=== PATIENT | female | born 1935 | race African-American/Black ===

== ENCOUNTER 2020-01-19 14:25 | Inpatient (IN) | payer MEDICARE, MEDICAID ==
[~2020-01-19] VITALS: Ht 154.9 cm; Wt 59.6 kg
[~2020-01-19 14:25] MED LIST: ACETAMINOPHEN325 M1 PO; AMMONIUM LACTA225 GM TP; AMPICILLIN2 GM PO; ATIVAN0.5 MG IV; BENADRYL50 MG/ML ORAL; CALCIUM 600 +1 EAC3 PO; CATAPRES0.1 MG ORAL; CEPHALEXIN250 MG PO; COUMADIN5 MG ORAL; CRESTOR10 M1 GT; CRESTOR10 M1 ORAL; DILTIAZEM 24HR240 MG PO; DOCUSATE SODIU100 MG ORAL; FUROSEMIDE20 M1 PO; GLIPIZIDE5 MG ORAL; HYTRIN10 MG PO; ISOSORBIDE MONO60 M1 PO; KETOCONAZOLE TOP; KETOCONAZOLE15 GM TOP; LOTENSIN40 MG PO; METFORMIN HCL850 MG PO; MIRALAX17 G2 ORAL; MUCINEX100 MG PO; MYLANTA II30 ML ORAL; NITROSTAT0.4 M1 SL; NOVOLOG100 UNIT/5 SUBQ; ONDANSETRON4 MG/2 M2 IVP; PROMETHAZINE-C118 M1 ORAL; PROTONIX40 MG PO; Q-PAP325 M1 PO; RESTORIL15 MG ORAL; SIMVASTATIN40 MG PO; TERAZOSIN HCL2 MG PO; TRAMADOL HCL50 MG ORAL; VITAMIN B-1100 MG ORAL; qpap
[2020-01-19] MEDS ORDERED: Omnipaque 350 100ml vial INJ PRN (14:30)
[2020-01-19 14:35] VITALS: BP 182/90
--- NOTE | 2020-01-19 14:36 | Emergency Room Report ---
History of Present Illness General Chief Complaint: Dyspnea/Respdistress Source: Patient, Family Member - Daughter, Medical Record Present Illness HPI 84-year-old female history of cancer history of diabetes, hypertension atrial fibrillation, presents with acute shortness of breath after receiving chemotherapy today, shortness of breath is aggravated by chemotherapy she feels chest tightness no known alleviating factors severity is moderate, constant, patient denies any fevers or chills Allergies: Coded Allergies: No Known Allergies (Unverified , 12/19/14) patient states no known drug allergy COVID-19 Screening Contact w/high risk pt: No Experienced COVID-19 symptoms?: Yes COVID-19 Testing performed TRAILER CHIEF: No Patient History Past Medical History: see triage record Reviewed Nursing Documentation: PMH: Agreed; PSxH: Agreed Nursing Documentation-PMH Hx Cardiac Problems: Yes - A fib, anemia Hx Hypertension: Yes Hx Diabetes: Yes Hx Cancer: Yes - bone Hx Gastrointestinal Problems: No Hx Neurological Problems: No Review of Systems All Other Systems: negative except mentioned in HPI Physical Exam Vital Signs Date Time Temp Pulse Resp B/P (MAP) Pulse Ox O2 Delivery O2 Flow Rate FiO2 01/19/20 14:29 98.2 67 24 189/83 (118) 91 Room Air Sp02 EP Interpretation: reviewed, normal General Appearance: alert, moderate distress, cachetic Head: normocephalic, atraumatic Eyes: bilateral eye PERRL, bilateral eye EOMI ENT: uvula midline, moist mucus membranes Neck: supple, thyroid normal, supple/symm/no masses Respiratory: lungs clear, accessory muscle use Cardiovascular #1: normal peripheral pulses, no edema, no gallop, no murmur, tachycardia Gastrointestinal: non tender, soft, no guarding, no rebound Musculoskeletal: normal inspection Neurologic: alert, oriented x3 Psychiatric: mood/affect normal Skin: no rash, warm/dry Medical Decision Making Diagnostic Impression: Primary Impression: Dyspnea Qualified Codes: R06.00 - Dyspnea, unspecified Additional Impressions: NSTEMI (non-ST elevated myocardial infarction) Demand ischemia Interstitial edema Qualified Codes: R60.9 - Edema, unspecified ER Course 84 year old male history of cancer presents with shortness of breath after chemotherapy. Differential diagnosis includes ACS, heart failure, pulmonary embolism Cultures drawn, patient given aspirin patient is already on anticoagulation, will hold on Lovenox, patient with an elevated troponin We will provide patient with Lasix Patient admitted to Dr. Dubon Laboratory Tests Test 01/19/20 14:30 White Blood Count 12.6 K/UL (4.8-10.8) H Red Blood Count 3.42 M/UL (4.20-5.40) L Hemoglobin 10.5 G/DL (12.0-16.0) L Hematocrit 32.4 % (37.0-47.0) L Mean Corpuscular Volume 95 FL (80-99) Mean Corpuscular Hemoglobin 30.6 PG (27.0-31.0) Mean Corpuscular Hemoglobin Concent 32.4 G/DL (32.0-36.0) Red Cell Distribution Width 20.5 % (11.6-14.8) H Platelet Count 272 K/UL (150-450) Mean Platelet Volume 7.5 FL (6.5-10.1) Neutrophils (%) (Auto) % (45.0-75.0) Lymphocytes (%) (Auto) % (20.0-45.0) Monocytes (%) (Auto) % (1.0-10.0) Eosinophils (%) (Auto) % (0.0-3.0) Basophils (%) (Auto) % (0.0-2.0) Differential Total Cells Counted 100 Neutrophils % (Manual) 95 % (45-75) H Lymphocytes % (Manual) 3 % (20-45) L Monocytes % (Manual) 2 % (1-10) Eosinophils % (Manual) 0 % (0-3) Basophils % (Manual) 0 % (0-2) Band Neutrophils 0 % (0-8) Platelet Estimate Adequate Platelet Morphology Normal Hypochromasia 1+ Anisocytosis 1+ Prothrombin Time 12.7 SEC (9.30-11.50) H Prothrombin Time INR 1.2 (0.9-1.1) H Activated Partial Thromboplast Time 29 SEC (23-33) Sodium Level 136 MMOL/L (136-145) Potassium Level 4.5 MMOL/L (3.5-5.1) Chloride Level 99 MMOL/L (98-107) Carbon Dioxide Level 31 MMOL/L (21-32) Anion Gap 6 mmol/L (5-15) Blood Urea Nitrogen 22 mg/dL (7-18) H Creatinine 1.2 MG/DL (0.55-1.30) Estimated Glomerular Filtration Rate 51.8 mL/min (>60) Glucose Level 201 MG/DL (74-106) H Lactic Acid Level 1.20 mmol/L (0.4-2.0) Calcium Level 8.1 MG/DL (8.5-10.1) L Total Bilirubin 0.8 MG/DL (0.2-1.0) Aspartate Amino Transferase (AST) 43 U/L (15-37) H Alanine Aminotransferase (ALT) 25 U/L (12-78) Alkaline Phosphatase 259 U/L (46-116) H Troponin I 0.107 ng/mL (0.000-0.056) Pro-B-Type Natriuretic Peptide 87701 pg/mL (0-125) H Total Protein 7.0 G/DL (6.4-8.2) Albumin 3.4 G/DL (3.4-5.0) Globulin 3.6 g/dL Albumin/Globulin Ratio 0.9 (1.0-2.7) L Microbiology Date/Time Source Procedure Growth Status 01/19/20 14:30 Nasopharynx SARS-CoV-2 RdRp Gene Assay - Final Complete EKG Diagnostic Results EKG Time: 14:46 EP Interpretation: Atrial fibrillation, rate 68, QTc 429, no acute ST elevations, normal axis Rhythm Strip Diag. Results Rhythm Strip Time: 14:50 EP Interpretation: yes Rate: 70 Rhythm: other - Afib Chest X-Ray Diagnostic Results Chest X-Ray Diagnostic Results : Chest X-Ray Ordered: Yes # of Views/Limited/Complete: 1 View EP Interpretation: Yes Interpretation: other - Cardiomegaly with some interstitial edema Impression: Other - Cardiomegaly with interstitial edema Electronically Signed by: Naga Becker MD Last Vital Signs Date Time Temp Pulse Resp B/P (MAP) Pulse Ox O2 Delivery O2 Flow Rate FiO2 01/19/20 14:29 98.2 67 24 189/83 (118) 91 Room Air Disposition: ADMITTED INPATIENT Condition: Stable Naga Becker MD Jan 19, 2020 14:36
[2020-01-19 14:54] LABS: HEMATOCRIT 32.4 % (37.0-47.0); HEMOGLOBIN 10.5 G/DL (12.0-16.0); MEAN CORPUSCULAR VOLUME 95 FL (80-99); PLATELET COUNT 272 K/UL (150-450); RED BLOOD COUNT 3.42 M/UL (4.20-5.40); RED CELL DISTRIBUTION WIDTH 20.5 % (11.6-14.8); WHITE BLOOD COUNT 12.6 K/UL (4.8-10.8)
[2020-01-19 15:06] LABS: INR 1.2 (0.9-1.1)
[2020-01-19 15:09] LABS: ANION GAP 6 mmol/L (5-15); BLOOD UREA NITROGEN 22 mg/dL (7-18); CALCIUM 8.1 MG/DL (8.5-10.1); CARBON DIOXIDE 31 MMOL/L (21-32); CHLORIDE 99 MMOL/L (98-107); CREATININE 1.2 MG/DL (0.55-1.30); POTASSIUM 4.5 MMOL/L (3.5-5.1); SODIUM 136 MMOL/L (136-145)
[2020-01-19 15:19] LABS: ALANINE AMINOTRANSFERASE 25 U/L (12-78); ALBUMIN 3.4 G/DL (3.4-5.0); ALBUMIN/GLOBULIN RATIO 0.9 (1.0-2.7); ALKALINE PHOSPHATASE 259 U/L (46-116); ASPARTATE AMINO TRANSFERASE 43 U/L (15-37); BILIRUBIN,TOTAL 0.8 MG/DL (0.2-1.0)
--- NOTE | 2020-01-19 15:42 | Diagnostic Imaging Report ---
Indication: Reason For Exam: SOB Technique: Single AP view of the chest. Comparison: Chest radiograph dated 12/19/2014 Findings: Cardiomediastinal silhouette is unchanged with moderate to severe cardiomegaly. There is mild interstitial edema. No new airspace consolidation. No large pleural effusion. No pneumothorax. No acute osseous abnormality. IMPRESSION: Moderate to severe cardiomegaly with mild interstitial edema.
[2020-01-19 16:10] VITALS: BP 168/88
[2020-01-19] MEDS ORDERED: COREG6.25 MG ORAL (17:10)
[2020-01-19] MEDS ORDERED: GABAPENTIN100 MG ORAL (17:10)
[2020-01-19] MEDS ORDERED: ACETAMINOPHEN-1 EAC1 ORAL (17:10)
[2020-01-19] MEDS ORDERED: FUROSEMIDE20 M1 ORAL (17:10)
[2020-01-19] MEDS ORDERED: ACYCLOVIR200 MG ORAL (17:10)
[2020-01-19] MEDS ORDERED: AMBIEN5 MG ORAL (17:10)
[2020-01-19] MEDS ORDERED: VITAMIN D31 M1 MC (17:10)
[2020-01-19] MEDS ORDERED: ELIQUIS5 MG PO (17:10)
[2020-01-19] MEDS ORDERED: Albuterol/Ipratropium 3ml neb HHN PRN (17:15)
[2020-01-19] MEDS ORDERED: Labetalol 5mg/ml 20ml vial IV PRN (17:15)
[2020-01-19] MEDS ORDERED: Enalaprilat 2.5mg/2ml Inj IV PRN (17:15)
--- NOTE | 2020-01-19 17:33 | Diagnostic Imaging Report ---
CTA CHEST - PE PROTOCOL Indication: Chest pain Technique: CT pulmonary angiogram performed utilizing automated exposure control with intravenous contrast. Axial, sagittal and coronal reconstructions were obtained. 3-D volumetric reconstructions were also performed. CT dose: Total DLP 155.4 mGycm; CTDI vol 53 mGy Comparison: Same day chest radiograph, CT abdomen pelvis dated 12/19/2014 Findings: Examination is limited due to respiratory motion artifact. Vasculature: Opacification of the pulmonary arteries is good. Main pulmonary artery is normal in size. No central or segmental pulmonary embolism. Evaluation of subsegmental arteries is limited due to respiratory motion artifact. Ascending aorta is normal in caliber. There is mild aortic atherosclerosis calcification. Lungs and pleura: Incomplete evaluation lung parenchyma due to motion artifact. There is mild emphysema. There is bibasilar subsegmental atelectasis. Small right pleural effusion. Heart and mediastinum: Thyroid is mildly heterogeneous. There is moderate to severe global cardiomegaly, with preferential enlargement of the right atrium. No pericardial effusion.. Airways: Patent. There is a moderate sized right posterior mid tracheal diverticulum. Lymph nodes: No lymphadenopathy. Upper abdomen: Liver is cirrhotic. There is reflux of intravenous contrast into the hepatic veins suggestive of right heart dysfunction. Right renal cyst is noted. Multiple hiatal hernia. Bones and soft tissue: There are multilevel discogenic degenerative changes of the visualized spine. Interval development of L1 compression fracture, with greater than 90% loss of body height, which appears chronic given degree of associated sclerosis.. Impression: 1. No evidence of central or segmental pulmonary embolism; dilation of subsegmental pulmonary arteries is limited due to respiratory motion, and small emboli at this level cannot be entirely excluded. 2. Moderate to severe cardiomegaly with evidence of right heart dysfunction. 3. Small right pleural effusion with associated atelectasis. 4. Mild diffuse bronchial thickening, nonspecific finding but which can be associated with infectious/inflammatory airways disease, especially given coexistence of emphysema. 5. L1 compression fracture with vertebral plana appearance, likely chronic given degree of associated sclerosis, but new since most recent examination from 2014. 6. Cirrhosis. The CT scanner at [facility] is accredited by the [employer] and the scans are performed using protocols designed to limit radiation exposure to as low as reasonably achievable to attain images of sufficient resolution adequate for diagnostic evaluation.
--- NOTE | 2020-01-19 17:55 | History & Physical ---
History and Physical History & Physicial Dictated for Int Med-Dr Dubon no. [id number]. Rafael Boykin MD Jan 19, 2020 17:55
--- NOTE | 2020-01-19 18:17 | Cardiology Progress Note ---
Assessment/Plan Assessment/Plan 1.Permanent atrial fibrillation. 2.[id number] mitral regurgitation and tricuspid regurgitation. 3.History of multiple falls. 4.Recent diagnosis of multiple myeloma. 5.History of peripheral arterial embolism. 6.History of epidural hematoma 7. CHF sx at time of chemo ct noted no large PE cxr noted wbc elevated will keep on diuretic bid and heart rate control not keeping her oxygen in place saturation 98% on room air , heart rate 66 on tele resume her eliquis 2.65 mg bid for stroke prevention Subjective Subjective past medical history is positive for a history of toxic metabolic encephalopathy and a ~prior history of bacteremia and urinary tract infection, renal failure, moderate to severe mitral regurgitation, tricuspid regurgitation , permanent atrial fibrillation on anticoagulation, history of compression fracture of the spine with epidural hematoma, history of hypertension, hyperlipidemia, hyponatremia secondary to SIADH, pulmonary hypertension, and a diagnosis of multiple myeloma as well as peripheral arterial embolism, diabetes ~mellitus, hyperlipidemia, congestive heart failure, obesity. Fall with blunt head injury/scalp hematoma, resolved.Bilateral sacral fracture, status post closed reduction and percutaneous pinning revision with Dr. Leonard Donato on 01/03/2020. History of mechanical fall with multiple pelvic fractures status post closed reduction and percutaneous pinning on 12/15/2019. Multiple myeloma, status post chemotherapy. Objective Last 24 Hour Vital Signs Date Time Temp Pulse Resp B/P (MAP) Pulse Ox O2 Delivery O2 Flow Rate FiO2 01/19/20 17:24 Nasal Cannula 2.0 01/19/20 17:00 98.0 73 20 162/84 99 Nasal Cannula 3.0 01/19/20 16:10 98.2 66 19 168/88 99 Nasal Cannula 3.0 01/19/20 14:35 98.2 70 21 182/90 99 Nasal Cannula 3.0 01/19/20 14:35 70 21 Nasal Cannula 3.0 01/19/20 14:29 98.2 67 24 189/83 (118) 91 Room Air Laboratory Tests Test 01/19/20 14:30 White Blood Count 12.6 K/UL (4.8-10.8) H Red Blood Count 3.42 M/UL (4.20-5.40) L Hemoglobin 10.5 G/DL (12.0-16.0) L Hematocrit 32.4 % (37.0-47.0) L Mean Corpuscular Volume 95 FL (80-99) Mean Corpuscular Hemoglobin 30.6 PG (27.0-31.0) Mean Corpuscular Hemoglobin Concent 32.4 G/DL (32.0-36.0) Red Cell Distribution Width 20.5 % (11.6-14.8) H Platelet Count 272 K/UL (150-450) Mean Platelet Volume 7.5 FL (6.5-10.1) Neutrophils (%) (Auto) % (45.0-75.0) Lymphocytes (%) (Auto) % (20.0-45.0) Monocytes (%) (Auto) % (1.0-10.0) Eosinophils (%) (Auto) % (0.0-3.0) Basophils (%) (Auto) % (0.0-2.0) Differential Total Cells Counted 100 Neutrophils % (Manual) 95 % (45-75) H Lymphocytes % (Manual) 3 % (20-45) L Monocytes % (Manual) 2 % (1-10) Eosinophils % (Manual) 0 % (0-3) Basophils % (Manual) 0 % (0-2) Band Neutrophils 0 % (0-8) Platelet Estimate Adequate Platelet Morphology Normal Hypochromasia 1+ Anisocytosis 1+ Prothrombin Time 12.7 SEC (9.30-11.50) H Prothromb Time International Ratio 1.2 (0.9-1.1) H Activated Partial Thromboplast Time 29 SEC (23-33) Sodium Level 136 MMOL/L (136-145) Potassium Level 4.5 MMOL/L (3.5-5.1) Chloride Level 99 MMOL/L (98-107) Carbon Dioxide Level 31 MMOL/L (21-32) Anion Gap 6 mmol/L (5-15) Blood Urea Nitrogen 22 mg/dL (7-18) H Creatinine 1.2 MG/DL (0.55-1.30) Estimat Glomerular Filtration Rate 51.8 mL/min (>60) Glucose Level 201 MG/DL (74-106) H Lactic Acid Level 1.20 mmol/L (0.4-2.0) Calcium Level 8.1 MG/DL (8.5-10.1) L Total Bilirubin 0.8 MG/DL (0.2-1.0) Aspartate Amino Transf (AST/SGOT) 43 U/L (15-37) H Alanine Aminotransferase (ALT/SGPT) 25 U/L (12-78) Alkaline Phosphatase 259 U/L (46-116) H Troponin I 0.107 ng/mL (0.000-0.056) Pro-B-Type Natriuretic Peptide 54137 pg/mL (0-125) H Total Protein 7.0 G/DL (6.4-8.2) Albumin 3.4 G/DL (3.4-5.0) Globulin 3.6 g/dL Albumin/Globulin Ratio 0.9 (1.0-2.7) L Microbiology Date/Time Source Procedure Growth Status 01/19/20 14:30 Nasopharynx SARS-CoV-2 RdRp Gene Assay - Final Complete Chauncey Lynne MD Jan 19, 2020 18:16
--- NOTE | 2020-01-19 18:45 | History and Physical Report ---
DATE OF ADMISSION: 01/19/2020 CHIEF COMPLAINT: The patient is an 84-year-old female, who presents with a chief complaint of shortness of breath. HISTORY OF PRESENT ILLNESS: The patient is undergoing chemotherapy at [facility] for "bone cancer." The patient states she was at her clinic appointment yesterday. The patient became short of breath. The patient was transferred to [facility] emergency room. The patient was found to be in atrial fibrillation. The patient is admitted with atrial fibrillation and shortness of breath to rule out pneumonia. REVIEW OF SYSTEMS: CONSTITUTIONAL: The patient denies weight loss or weight gain. The patient denies fevers or chills. HEENT: The patient denies ear or throat pain. The patient denies headache. CARDIOVASCULAR: The patient denies palpitations or chest pain. CHEST: The patient complains of shortness of breath as above. The patient denies wheezes. ABDOMEN: The patient denies nausea, vomiting, diarrhea, or constipation. GENITOURINARY: The patient denies dysuria or increased frequency of urination. NEUROMUSCULAR: The patient denies seizures or generalized weakness. PAST MEDICAL HISTORY: Significant for: 1. Atrial fibrillation. 2. "Bone cancer." 3. Diabetes type 2. 4. Hypertension. 5. History of liver cirrhosis. PAST SURGICAL HISTORY: Significant for: 1. Left hip open reduction and internal fixation. 2. Appendectomy. CURRENT MEDICATIONS: 1. Tylenol No. 3 with codeine one tablet p.o. q.6 h. p.r.n. 2. Acyclovir 200 mg one tablet p.o. twice daily. 3. Eliquis 5 mg p.o. daily. 4. Benazepril 40 mg p.o. daily. 5. Coreg 6.25 mg p.o. twice daily. 6. Vitamin D3 400 units p.o. daily. 7. Clonidine 0.1 mg p.o. q.4 h. p.r.n. 8. Diltiazem 240 mg p.o. daily. 9. Lasix 20 mg p.o. daily. 10. Insulin aspart q.a.c. meals. 11. Zofran 4 mg p.o. q.6 h. p.r.n. 12. Protonix 40 mg p.o. daily. 13. Crestor 10 mg p.o. daily. 14. Restoril 15 mg p.o. nightly. 15. Vitamin B 100 mg orally daily. 16. Tramadol 50 mg p.o. q.6 h. p.r.n. ALLERGIES: No known drug allergies. SOCIAL HISTORY: The patient is a and lives with her daughter. The patient denies tobacco or alcohol use. PHYSICAL EXAMINATION: VITAL SIGNS: Temperature 98.2, respirations 24, pulse 64, and blood pressure 189/83. GENERAL: The patient is a well-developed and well-nourished Lithuanian-speaking female, in no apparent distress. HEENT: Eyes, pupils are equal and responsive to light and accommodation. Extraocular movements are intact. NECK: Supple without lymphadenopathy. CHEST: Lungs are clear to auscultation bilaterally without wheezes or rales. CARDIOVASCULAR: Regular rhythm and rate. S1, S2 normal without murmurs, rubs, or gallops. ABDOMEN: Soft, nontender, and nondistended. Positive bowel sounds. No evidence of hepatosplenomegaly. Currently, no rebound or guarding noted. EXTREMITIES: Negative for clubbing, cyanosis, or edema. RECTAL/GENITAL: Not performed. NEUROLOGIC: Cranial nerves II through XII are grossly intact without focal deficits. Motor strength is 5/5 bilaterally. Deep tendon reflexes are 2+ plantar. LABORATORY STUDIES: WBC 12.6, hemoglobin 10.5, hematocrit 32.4, and platelets 272,000. Sodium 136, potassium 4.5, chloride 99, CO2 31, BUN 22, creatinine 1.2. Glucose 201. Troponin elevated at 0.107. BNP elevated at 17,314. Chest x-ray was reported as severe cardiomegaly with mild interstitial edema. A CT angio of failed to demonstrate pulmonary embolism. An EKG demonstrated atrial fibrillation with frequent premature ventricular contractions with no acute ST changes or Q-waves noted. ASSESSMENT: This is an 84-year-old female with: 1. Shortness of breath. 2. Atrial fibrillation. 3. Diabetes type 2. 4. Hypertension. 5. Bone cancer. 6. Liver cirrhosis. 7. Congestive heart failure. TREATMENT: 1. Atrial fibrillation. A Cardiology consultation has been obtained with Dr. Chauncey Lynne. We will follow recommendations of Cardiology. The patient is currently on Eliquis. Continue Eliquis as above. 2. Diabetes type 2. NovoLog sliding scale has been instituted. 3. Hypertension. Continue Coreg as above. Continue benazepril and diltiazem as above. 4. Bone cancer. The patient is followed as an outpatient at [facility]. 5. Congestive heart failure. As above, a Cardiology consultation has been obtained with Dr. Chauncey Lynne. 6. History of liver cirrhosis. Rafael Boykin M.D. DR: ANNABELLE JOB#: [id number] CC:
[2020-01-19 20:00] VITALS: BP 166/69
[2020-01-19] MEDS: NovoLOG Insulin Flexpen SUBQ SCH (22:29)
[2020-01-19] MEDS: Carvedilol 6.25mg Tab ORAL SCH (22:46)
[2020-01-19] MEDS: Heparin 5000 units/ml inj SUBQ SCH (22:48)
[2020-01-20] VITALS (7 sets, daily range): BP systolic 122–187; BP diastolic 53–89
[2020-01-20] MEDS: NovoLOG Insulin Flexpen SUBQ SCH ×4 (05:45→21:00)
--- NOTE | 2020-01-20 06:54 | General Progress Note ---
Assessment/Plan Problem List: (1) HTN (hypertension) ICD Codes: I10 - HTN (hypertension) SNOMED: 64277997 (2) DM (diabetes mellitus) ICD Codes: E11.9 - DM (diabetes mellitus) SNOMED: 32349548 (3) UTI (lower urinary tract infection) ICD Codes: N39.0 - Urinary tract infection, site not specified SNOMED: 7645821 (4) Atrial fibrillation ICD Codes: I48.91 - Atrial fibrillation SNOMED: 18654001 Assessment/Plan: add Januvia 50 mg daily continue Novolog sliding scale ac / hs Subjective Allergies: Coded Allergies: No Known Allergies (Unverified , 12/19/14) patient states no known drug allergy All Systems: reviewed and negative except above Subjective patient is know to me from recent admission to [facility] diabetes was well managed with Januvia 50 mg daily Objective Last 24 Hour Vital Signs Date Time Temp Pulse Resp B/P (MAP) Pulse Ox O2 Delivery O2 Flow Rate FiO2 01/20/20 04:30 132/70 (90) 01/20/20 04:00 97.9 73 19 187/89 (121) 96 01/20/20 04:00 61 01/20/20 03:59 187/89 01/20/20 00:00 68 01/20/20 00:00 96.9 73 19 126/66 (86) 100 01/19/20 22:46 89 166/87 01/19/20 21:00 Room Air 01/19/20 20:00 71 01/19/20 20:00 96.9 75 18 166/69 (101) 95 01/19/20 17:24 Nasal Cannula 2.0 01/19/20 17:00 98.0 73 20 162/84 99 Nasal Cannula 3.0 01/19/20 16:10 98.2 66 19 168/88 99 Nasal Cannula 3.0 01/19/20 14:35 98.2 70 21 182/90 99 Nasal Cannula 3.0 01/19/20 14:35 70 21 Nasal Cannula 3.0 01/19/20 14:29 98.2 67 24 189/83 (118) 91 Room Air Intake and Output 01/19/20 01/20/20 19:00 07:00 Intake Total 240 ml Balance 240 ml Intake Oral 240 ml # Voids 1 2 # Bowel Movements 1 Laboratory Tests 01/19/20 14:30: White Blood Count 12.6H, Red Blood Count 3.42L, Hemoglobin 10.5L, Hematocrit 32.4L, Mean Corpuscular Volume 95, Mean Corpuscular Hemoglobin 30.6, Mean Corpuscular Hemoglobin Concent 32.4, Red Cell Distribution Width 20.5H, Platelet Count 272, Mean Platelet Volume 7.5, Neutrophils (%) (Auto) , Lymphocytes (%) (Auto) , Monocytes (%) (Auto) , Eosinophils (%) (Auto) , Basophils (%) (Auto) , Differential Total Cells Counted 100, Neutrophils % ( Manual) 95H, Lymphocytes % (Manual) 3L, Monocytes % (Manual) 2, Eosinophils % ( Manual) 0, Basophils % (Manual) 0, Band Neutrophils 0, Platelet Estimate Adequate, Platelet Morphology Normal, Hypochromasia 1+, Anisocytosis 1+, Prothrombin Time 12.7H, Prothromb Time International Ratio 1.2H, Activated Partial Thromboplast Time 29, Sodium Level 136, Potassium Level 4.5, Chloride Level 99, Carbon Dioxide Level 31, Anion Gap 6, Blood Urea Nitrogen 22H, Creatinine 1.2, Estimat Glomerular Filtration Rate 51.8, Glucose Level 201H, Lactic Acid Level 1.20, Calcium Level 8.1L, Total Bilirubin 0.8, Aspartate Amino Transf (AST/SGOT) 43H, Alanine Aminotransferase (ALT/SGPT) 25, Alkaline Phosphatase 259H, Troponin I 0.107H, Pro-B-Type Natriuretic Peptide 59078Z, Total Protein 7.0, Albumin 3.4, Globulin 3.6, Albumin/Globulin Ratio 0.9L 01/19/20 18:00: Arterial Blood pH 7.447, Arterial Blood Partial Pressure CO2 44.1, Arterial Blood Partial Pressure O2 139.4H, Arterial Blood HCO3 29.8H, Arterial Blood Oxygen Saturation 98.8, Arterial Blood Base Excess 5.1H, Felipe Test Positive 01/19/20 21:51: POC Whole Blood Glucose [Pending] 01/19/20 22:35: Troponin I 0.096H 01/20/20 04:46: Sodium Level [Pending], Potassium Level [Pending], Chloride Level [Pending], Carbon Dioxide Level [Pending], Blood Urea Nitrogen [Pending], Creatinine [ Pending], Estimat Glomerular Filtration Rate [Pending], Glucose Level [Pending] , Calcium Level [Pending], Troponin I [Pending], Pro-B-Type Natriuretic Peptide [Pending] 01/20/20 05:34: POC Whole Blood Glucose 191H Height (Feet): 5 Height (Inches): 1.00 Weight (Pounds): 147 General Appearance: no apparent distress Neck: normal alignment Cardiovascular: normal rate Respiratory/Chest: lungs clear Abdomen: normal bowel sounds Objective Current Medications Medications (Trade) Dose Ordered Sig/Farhad Route PRN Reason Start Time Stop Time Status Last Admin Dose Admin Acetaminophen (Tylenol) 650 mg Q4H PRN ORAL Fever 01/19/20 17:15 02/18/20 17:14 Albuterol/ Ipratropium (Albuterol/ Ipratropium) 3 ml Q4H PRN HHN Shortness of Breath 01/19/20 17:15 01/24/20 17:14 Carvedilol (Coreg) 6.25 mg EVERY 12 HOURS ORAL 01/19/20 21:00 02/18/20 20:59 01/19/20 22:46 Dextrose (Dextrose 50%) 25 ml Q30M PRN IV Hypoglycemia 01/19/20 17:15 04/18/20 17:14 Dextrose (Dextrose 50%) 50 ml Q30M PRN IV Hypoglycemia 01/19/20 17:15 04/18/20 17:14 Enalaprilat (Vasotec) 2.5 mg Q4H PRN IV sbp more than 200 01/19/20 17:15 02/18/20 17:14 Furosemide (Lasix) 40 mg EVERY 8 HOURS IV 01/19/20 23:00 02/18/20 22:59 01/20/20 05:42 Gabapentin (Neurontin) 100 mg THREE TIMES A DAY ORAL 01/19/20 18:00 02/18/20 17:59 01/19/20 18:23 Heparin Sodium (Porcine) (Heparin 5000 units/ml) 5,000 units EVERY 12 HOURS SUBQ 01/19/20 21:00 03/04/20 20:59 01/19/20 22:48 Hydralazine HCl (Apresoline) 20 mg Q4H PRN IV sbp more than 160 01/19/20 17:15 04/18/20 17:14 01/20/20 03:59 Insulin Aspart (NovoLOG) BEFORE MEALS AND HS SUBQ 01/19/20 21:00 04/18/20 20:59 01/20/20 05:45 Iohexol (Omnipaque 350 100ml) 100 ml NOW PRN INJ Radiology Procedure 01/19/20 14:30 01/21/20 14:26 Labetalol HCl (Normodyne) 20 mg Q1H PRN IV sbo more than 180 01/19/20 17:15 02/18/20 17:14 Ondansetron HCl (Zofran) 4 mg Q6H PRN IVP Nausea & Vomiting 01/19/20 17:15 02/18/20 17:14 Polyethylene Glycol (Miralax) 17 gm DAILYPRN PRN ORAL Constipation 01/19/20 17:15 02/18/20 17:14 Temazepam (Restoril) 15 mg HSPRN PRN ORAL Insomnia 01/19/20 17:15 01/26/20 17:14 Maurizio Flores MD Jan 20, 2020 06:54
[2020-01-20 07:26] LABS: ANION GAP 6 mmol/L (5-15); BLOOD UREA NITROGEN 24 mg/dL (7-18); CALCIUM 8.3 MG/DL (8.5-10.1); CARBON DIOXIDE 33 MMOL/L (21-32); CHLORIDE 99 MMOL/L (98-107); CREATININE 1.5 MG/DL (0.55-1.30); POTASSIUM 3.9 MMOL/L (3.5-5.1); SODIUM 138 MMOL/L (136-145)
[2020-01-20] MEDS: sitaGLIPtin 50mg tab ORAL SCH (08:03)
[2020-01-20] MEDS: Carvedilol 6.25mg Tab ORAL SCH ×2 (08:47→21:11)
[2020-01-20] MEDS: Heparin 5000 units/ml inj SUBQ SCH (08:49)
--- NOTE | 2020-01-20 13:06 | Consultation ---
History of Present Illness General Date patient seen: Jan 20, 2020 Chief Complaint: Dyspnea/Respdistress Present Illness HPI 79-year-old female with past medical history of atrial fibrillation, hypertension, DVT, diabetes presented to the emergency room at [facility] with a chief complaint of dyspnea after receiving chemotherapy for her bone cancer (?multiple myeloma) fever, and flu like symptoms. Therefore, the patient was admitted for further evaluation. Allergies: Coded Allergies: No Known Allergies (Unverified , 12/19/14) patient states no known drug allergy Medication History Scheduled Acyclovir* (Acyclovir*), 200 MG ORAL BID, (Reported) Ampicillin (Ampicillin*), 500 MG PO Q6HR, (Reported) Benazepril Hcl* (Lotensin*), 40 MG PO DAILY, (Reported) Carvedilol (Coreg), 6.25 MG ORAL EVERY 12 HOURS, (Reported) Docusate Sodium* (Docusate Sodium*), 100 MG ORAL TWICE A DAY, (Reported) Furosemide* (Lasix*), 20 MG PO DAILY, (Reported) Furosemide* (Lasix*), 10 MG ORAL DAILY, (Reported) Gabapentin* (Gabapentin*), 100 MG ORAL THREE TIMES A DAY, (Reported) Guaifenesin (Mucinex), 600 MG PO BID, (Reported) Insulin Aspart (Novolog), UNIT SUBQ ACHS, (Reported) Pantoprazole* (Protonix*), 40 MG PO DAILY Rosuvastatin Calcium (Crestor), 10 MG ORAL DAILY, (Reported) Thiamine Hcl* (Vitamin B-1*), 100 MG ORAL DAILY, (Reported) Tramadol Hcl* (Ultram*), 50 MG ORAL Q6H Scheduled PRN Acetaminophen (Q-Pap), 650 MG PO Q6HR PRN for For Pain, (Reported) Acetaminophen With Codeine (T#3) (Tylenol #3 Tab*), 2 TAB ORAL Q6H PRN for For Pain, (Reported) Al Hydroxide/mg Hydroxide (Mag-Al Plus Suspension), 30 ML ORAL Q6HR PRN for Abdominal cramps, (Reported) Clonidine Hcl* (Catapres*), 0.1 MG ORAL Q4HR PRN for SBP>160, (Reported) Codeine/Promethazine Hcl* (Promethazine-Codeine Syrup*), 5 ML ORAL Q4H PRN for For Cough, (Reported) Diphenhydramine HCl (Diphenhydramine HCl), 50 MG ORAL DAILY PRN for Itching, ( Reported) Lorazepam* (Ativan*), 0.5 MG IV Q4HR PRN for ANXIETY, (Reported) Ondansetron* (Zofran 4 Mg/2 Ml Vial*), 4 MG IVP Q6H PRN for Nausea & Vomiting, ( Reported) Polyethylene Glycol 3350* (Miralax*), 17 GM ORAL QHS PRN for Constipation, ( Reported) Temazepam* (Restoril*), 15 MG ORAL BEDTIME PRN for Insomnia, (Reported) Zolpidem Tartrate* (Ambien*), 5 MG ORAL BEDTIME PRN for Insomnia, (Reported) Miscellaneous Medications Apixaban (Eliquis), 5 MG PO, (Reported) Cholecalciferol (Vitamin D3) (Vitamin D3), 400 UNITS MC, (Reported) Diltiazem Hcl (Diltiazem 24HR Cd), 240 MG PO, (Reported) [qpap], (Reported) Patient History Healthcare decision maker Resuscitation status Advanced Directive on File Past Medical/Surgical History Past Medical/Surgical History: (1) DM (diabetes mellitus) (2) HTN (hypertension) (3) Atrial fibrillation Review of Systems Constitutional: Reports: no symptoms Eye: Reports: discharge All Other Systems: negative except mentioned in HPI Physical Exam General Appearance: WD/WN, no apparent distress Lines, tubes and drains: peripheral, endotracheal tube HEENT: normocephalic, atraumatic, mucous membranes moist Neck: supple Respiratory/Chest: chest wall non-tender, lungs clear, no respiratory distress Breasts: no masses Cardiovascular/Chest: normal peripheral pulses, normal rate Genitourinary/Rectal: normal genital exam, normal rectal exam Last 24 Hour Vital Signs Date Time Temp Pulse Resp B/P (MAP) Pulse Ox O2 Delivery O2 Flow Rate FiO2 01/20/20 12:00 74 01/20/20 12:00 97.3 64 18 130/53 (78) 98 01/20/20 09:00 Room Air 01/20/20 08:47 94 122/86 01/20/20 08:00 88 01/20/20 08:00 98.1 94 18 122/86 (98) 96 01/20/20 06:53 70 17 96 Room Air 21 01/20/20 04:30 132/70 (90) 01/20/20 04:00 97.9 73 19 187/89 (121) 96 01/20/20 04:00 61 01/20/20 03:59 187/89 01/20/20 00:00 68 01/20/20 00:00 96.9 73 19 126/66 (86) 100 01/19/20 22:46 89 166/87 01/19/20 21:00 Room Air 01/19/20 20:00 71 01/19/20 20:00 96.9 75 18 166/69 (101) 95 01/19/20 17:24 Nasal Cannula 2.0 01/19/20 17:00 98.0 73 20 162/84 99 Nasal Cannula 3.0 01/19/20 16:10 98.2 66 19 168/88 99 Nasal Cannula 3.0 01/19/20 14:35 98.2 70 21 182/90 99 Nasal Cannula 3.0 01/19/20 14:35 70 21 Nasal Cannula 3.0 01/19/20 14:29 98.2 67 24 189/83 (118) 91 Room Air Intake and Output 01/19/20 01/20/20 19:00 07:00 Intake Total 240 ml Balance 240 ml Intake Oral 240 ml # Voids 1 2 # Bowel Movements 1 Laboratory Tests Test 01/19/20 14:30 01/19/20 18:00 01/19/20 21:51 01/19/20 22:35 White Blood Count 12.6 K/UL (4.8-10.8) H Red Blood Count 3.42 M/UL (4.20-5.40) L Hemoglobin 10.5 G/DL (12.0-16.0) L Hematocrit 32.4 % (37.0-47.0) L Mean Corpuscular Volume 95 FL (80-99) Mean Corpuscular Hemoglobin 30.6 PG (27.0-31.0) Mean Corpuscular Hemoglobin Concent 32.4 G/DL (32.0-36.0) Red Cell Distribution Width 20.5 % (11.6-14.8) H Platelet Count 272 K/UL (150-450) Mean Platelet Volume 7.5 FL (6.5-10.1) Neutrophils (%) (Auto) % (45.0-75.0) Lymphocytes (%) (Auto) % (20.0-45.0) Monocytes (%) (Auto) % (1.0-10.0) Eosinophils (%) (Auto) % (0.0-3.0) Basophils (%) (Auto) % (0.0-2.0) Differential Total Cells Counted 100 Neutrophils % (Manual) 95 % (45-75) H Lymphocytes % (Manual) 3 % (20-45) L Monocytes % (Manual) 2 % (1-10) Eosinophils % (Manual) 0 % (0-3) Basophils % (Manual) 0 % (0-2) Band Neutrophils 0 % (0-8) Platelet Estimate Adequate Platelet Morphology Normal Hypochromasia 1+ Anisocytosis 1+ Prothrombin Time 12.7 SEC (9.30-11.50) H Prothromb Time International Ratio 1.2 (0.9-1.1) H Activated Partial Thromboplast Time 29 SEC (23-33) Sodium Level 136 MMOL/L (136-145) Potassium Level 4.5 MMOL/L (3.5-5.1) Chloride Level 99 MMOL/L (98-107) Carbon Dioxide Level 31 MMOL/L (21-32) Anion Gap 6 mmol/L (5-15) Blood Urea Nitrogen 22 mg/dL (7-18) H Creatinine 1.2 MG/DL (0.55-1.30) Estimat Glomerular Filtration Rate 51.8 mL/min (>60) Glucose Level 201 MG/DL (74-106) H Lactic Acid Level 1.20 mmol/L (0.4-2.0) Calcium Level 8.1 MG/DL (8.5-10.1) L Total Bilirubin 0.8 MG/DL (0.2-1.0) Aspartate Amino Transf (AST/SGOT) 43 U/L (15-37) H Alanine Aminotransferase (ALT/SGPT) 25 U/L (12-78) Alkaline Phosphatase 259 U/L (46-116) H Troponin I 0.107 ng/mL (0.000-0.056) 0.096 ng/mL (0.000-0.056) Pro-B-Type Natriuretic Peptide 92599 pg/mL (0-125) H Total Protein 7.0 G/DL (6.4-8.2) Albumin 3.4 G/DL (3.4-5.0) Globulin 3.6 g/dL Albumin/Globulin Ratio 0.9 (1.0-2.7) L Arterial Blood pH 7.447 (7.350-7.450) Arterial Blood Partial Pressure CO2 44.1 mmHg (35.0-45.0) Arterial Blood Partial Pressure O2 139.4 mmHg (75.0-100.0) H Arterial Blood HCO3 29.8 mmol/L (22.0-26.0) H Arterial Blood Oxygen Saturation 98.8 % (95-100) Arterial Blood Base Excess 5.1 (-2-2) H Felipe Test Positive POC Whole Blood Glucose Pending Test 01/20/20 04:46 01/20/20 05:34 01/20/20 11:17 Sodium Level 138 MMOL/L (136-145) Potassium Level 3.9 MMOL/L (3.5-5.1) Chloride Level 99 MMOL/L (98-107) Carbon Dioxide Level 33 MMOL/L (21-32) H Anion Gap 6 mmol/L (5-15) Blood Urea Nitrogen 24 mg/dL (7-18) H Creatinine 1.5 MG/DL (0.55-1.30) H Estimat Glomerular Filtration Rate 40.0 mL/min (>60) Glucose Level 198 MG/DL (74-106) H Calcium Level 8.3 MG/DL (8.5-10.1) L Troponin I 0.092 ng/mL (0.000-0.056) Pro-B-Type Natriuretic Peptide 54370 pg/mL (0-125) H POC Whole Blood Glucose 191 MG/DL (74-106) H 200 MG/DL (74-106) H Microbiology Date/Time Source Procedure Growth Status 01/19/20 14:30 Nasopharynx SARS-CoV-2 RdRp Gene Assay - Final Complete Height (Feet): 5 Height (Inches): 1.00 Weight (Pounds): 147 Medications Current Medications Medications (Trade) Dose Ordered Sig/Farhad Route PRN Reason Start Time Stop Time Status Last Admin Dose Admin Acetaminophen (Tylenol) 650 mg Q4H PRN ORAL Fever 01/19/20 17:15 02/18/20 17:14 Albuterol/ Ipratropium (Albuterol/ Ipratropium) 3 ml Q4H PRN HHN Shortness of Breath 01/19/20 17:15 01/24/20 17:14 Carvedilol (Coreg) 6.25 mg EVERY 12 HOURS ORAL 01/19/20 21:00 02/18/20 20:59 01/20/20 08:47 Dextrose (Dextrose 50%) 25 ml Q30M PRN IV Hypoglycemia 01/19/20 17:15 04/18/20 17:14 Dextrose (Dextrose 50%) 50 ml Q30M PRN IV Hypoglycemia 01/19/20 17:15 04/18/20 17:14 Enalaprilat (Vasotec) 2.5 mg Q4H PRN IV sbp more than 200 01/19/20 17:15 02/18/20 17:14 Furosemide (Lasix) 40 mg EVERY 8 HOURS IV 01/19/20 23:00 02/18/20 22:59 01/20/20 05:42 Gabapentin (Neurontin) 100 mg THREE TIMES A DAY ORAL 01/19/20 18:00 02/18/20 17:59 01/20/20 08:50 Heparin Sodium (Porcine) (Heparin 5000 units/ml) 5,000 units EVERY 12 HOURS SUBQ 01/19/20 21:00 03/04/20 20:59 01/20/20 08:49 Hydralazine HCl (Apresoline) 20 mg Q4H PRN IV sbp more than 160 01/19/20 17:15 04/18/20 17:14 01/20/20 03:59 Insulin Aspart (NovoLOG) BEFORE MEALS AND HS SUBQ 01/19/20 21:00 04/18/20 20:59 01/20/20 12:06 Iohexol (Omnipaque 350 100ml) 100 ml NOW PRN INJ Radiology Procedure 01/19/20 14:30 01/21/20 14:26 Labetalol HCl (Normodyne) 20 mg Q1H PRN IV sbo more than 180 01/19/20 17:15 02/18/20 17:14 Ondansetron HCl (Zofran) 4 mg Q6H PRN IVP Nausea & Vomiting 01/19/20 17:15 02/18/20 17:14 Polyethylene Glycol (Miralax) 17 gm DAILYPRN PRN ORAL Constipation 01/19/20 17:15 02/18/20 17:14 Sitagliptin Phosphate (Januvia) 50 mg ACBREAKFAST ORAL 01/20/20 07:00 02/19/20 06:59 01/20/20 08:03 Temazepam (Restoril) 15 mg HSPRN PRN ORAL Insomnia 01/19/20 17:15 01/26/20 17:14 Assessment/Plan Problem List: (1) Acute respiratory failure ICD Codes: J96.00 - Acute respiratory failure, unspecified whether with hypoxia or hypercapnia SNOMED: 99170761 (2) Chemotherapy adverse reaction ICD Codes: T45.1X5A - Adverse effect of antineoplastic and immunosuppressive drugs, initial encounter SNOMED: 813091478 (3) Interstitial edema ICD Codes: R60.9 - Edema, unspecified SNOMED: 550984308, 861981423 Qualifiers: Qualified Codes: R60.9 - Edema, unspecified (4) UTI (lower urinary tract infection) ICD Codes: N39.0 - Urinary tract infection, site not specified SNOMED: 1027140 (5) Atrial fibrillation ICD Codes: I48.91 - Atrial fibrillation SNOMED: 72623835 (6) DM (diabetes mellitus) ICD Codes: E11.9 - DM (diabetes mellitus) SNOMED: 02128034 (7) HTN (hypertension) ICD Codes: I10 - HTN (hypertension) SNOMED: 41085761 Assessment/Plan: symptomatic treatment respiratory treatment titrate fio2 to sat of 92% optimize cardiac meds diuretics f/u cxr and BNP pt/ot cardio to see. Inga Matias MD Jan 20, 2020 13:06
--- NOTE | 2020-01-20 13:16 | Diagnostic Imaging Report ---
Procedure: XRAY Chest 1v Reason for study: Reason For Exam: [id number] Comparison films: 01/19/2020. FINDINGS: A single one view chest is obtained. Vascularity is normal. The lung marcelo are clear bilaterally. Is cardiomegaly unchanged. CP angles are sharp. The bony thorax appear unremarkable. IMPRESSION: NO SIGNIFICANT CHANGE COMPARED TO PREVIOUS EXAM.
--- NOTE | 2020-01-20 17:18 | Diagnostic Imaging Report ---
Indication: Chest pain Technique: A ventilation/perfusion scan was performed. Ventilation was performed utilizing 40 mCi of Technetium 99m-DTPA. Perfusion was performed with 5 mCi of technetium 99m-MAA injected intravenously. Multiple side by side projections obtained. Findings: Limited evaluation given heterogeneous clumping of radiotracer, likely related to COPD/emphysema. There is expected photopenia in the region of the enlarged cardiac silhouette. There is clumping of radiotracer on ventilation imaging which may be related to known emphysematous changes/COPD. Multifocal small perfusion defects, some which are matched. Apparent perfusion defect in the left lower lobe on anterior views which is not readily apparent on the posterior planar imaging. IMPRESSION: Limited exam. Overall findings suggest intermediate probability for pulmonary embolism. Consider repeat CT angiogram the chest (ideally with less patient motions if able) for more definitive evaluation as clinically indicated.
--- NOTE | 2020-01-20 18:51 | Cardiology Progress Note ---
Assessment/Plan Assessment/Plan 1.Permanent atrial fibrillation. 2.Decsahkj-tj-sxqrum mitral regurgitation and tricuspid regurgitation. 3.History of multiple falls. 4.Recent diagnosis of multiple myeloma. 5.History of peripheral arterial embolism. 6.History of epidural hematoma 7. CHF sound ok resuem eliqusi dc coreg may need cardeizem resumed tomorrow swithc to once a day lasix may need nav on lasix 40 mg po bid at home trop without peak or brittnee will consider out pt ischemia evalin future [id number] Subjective Cardiovascular: Denies: chest pain, lightheadedness, palpitations Respiratory: Denies: cough, shortness of breath Gastrointestinal/Abdominal: Denies: abdominal pain Genitourinary: Reports: burning Subjective pain in buttock / back Objective Last 24 Hour Vital Signs Date Time Temp Pulse Resp B/P (MAP) Pulse Ox O2 Delivery O2 Flow Rate FiO2 01/20/20 16:00 97.3 62 18 146/55 (85) 97 01/20/20 16:00 69 01/20/20 12:00 74 01/20/20 12:00 97.3 64 18 130/53 (78) 98 01/20/20 09:00 Room Air 01/20/20 08:47 94 122/86 01/20/20 08:00 88 01/20/20 08:00 98.1 94 18 122/86 (98) 96 01/20/20 06:53 70 17 96 Room Air 21 01/20/20 04:30 132/70 (90) 01/20/20 04:00 97.9 73 19 187/89 (121) 96 01/20/20 04:00 61 01/20/20 03:59 187/89 01/20/20 00:00 68 01/20/20 00:00 96.9 73 19 126/66 (86) 100 01/19/20 22:46 89 166/87 01/19/20 21:00 Room Air 01/19/20 20:00 71 01/19/20 20:00 96.9 75 18 166/69 (101) 95 General Appearance: no apparent distress, alert Neck: supple Cardiovascular: irregularly irregular Respiratory/Chest: lungs clear Abdomen: normal bowel sounds, non tender, soft Extremities: moderate edema Intake and Output 01/19/20 01/20/20 19:00 07:00 Intake Total 240 ml Balance 240 ml Intake Oral 240 ml # Voids 1 2 # Bowel Movements 1 Laboratory Tests Test 01/19/20 21:51 01/19/20 22:35 01/20/20 04:46 01/20/20 05:34 POC Whole Blood Glucose Pending 191 MG/DL (74-106) H Troponin I 0.096 ng/mL (0.000-0.056) 0.092 ng/mL (0.000-0.056) Sodium Level 138 MMOL/L (136-145) Potassium Level 3.9 MMOL/L (3.5-5.1) Chloride Level 99 MMOL/L (98-107) Carbon Dioxide Level 33 MMOL/L (21-32) H Anion Gap 6 mmol/L (5-15) Blood Urea Nitrogen 24 mg/dL (7-18) H Creatinine 1.5 MG/DL (0.55-1.30) H Estimat Glomerular Filtration Rate 40.0 mL/min (>60) Glucose Level 198 MG/DL (74-106) H Calcium Level 8.3 MG/DL (8.5-10.1) L Pro-B-Type Natriuretic Peptide 89377 pg/mL (0-125) H Test 01/20/20 11:17 01/20/20 16:35 POC Whole Blood Glucose 200 MG/DL (74-106) H 154 MG/DL (74-106) H Microbiology Date/Time Source Procedure Growth Status 01/19/20 14:30 Nasopharynx SARS-CoV-2 RdRp Gene Assay - Final Complete Chauncey Lynne MD Jan 20, 2020 18:51
--- NOTE | 2020-01-20 20:03 | Internal Med Progress Note ---
Subjective Physician Name Misael Dubon Attending Physician Misael Dubon MD Current Medications Medications (Trade) Dose Ordered Sig/Farhad Route PRN Reason Start Time Stop Time Status Last Admin Dose Admin Acetaminophen (Tylenol) 650 mg Q4H PRN ORAL Fever 01/19/20 17:15 02/18/20 17:14 Albuterol/ Ipratropium (Albuterol/ Ipratropium) 3 ml Q4H PRN HHN Shortness of Breath 01/19/20 17:15 01/24/20 17:14 Artificial Tears (Akwa-Tears) 1 drop Q12HR BOTH EYES 01/20/20 21:00 02/19/20 20:59 Carvedilol (Coreg) 6.25 mg EVERY 12 HOURS ORAL 01/19/20 21:00 02/18/20 20:59 01/20/20 08:47 Dextrose (Dextrose 50%) 25 ml Q30M PRN IV Hypoglycemia 01/19/20 17:15 04/18/20 17:14 Dextrose (Dextrose 50%) 50 ml Q30M PRN IV Hypoglycemia 01/19/20 17:15 04/18/20 17:14 Enalaprilat (Vasotec) 2.5 mg Q4H PRN IV sbp more than 200 01/19/20 17:15 02/18/20 17:14 Furosemide (Lasix) 40 mg DAILYPRN IV 01/20/20 19:00 02/19/20 18:59 Gabapentin (Neurontin) 100 mg THREE TIMES A DAY ORAL 01/19/20 18:00 02/18/20 17:59 01/20/20 18:12 Heparin Sodium (Porcine) (Heparin 5000 units/ml) 5,000 units EVERY 12 HOURS SUBQ 01/19/20 21:00 03/04/20 20:59 01/20/20 08:49 Hydralazine HCl (Apresoline) 20 mg Q4H PRN IV sbp more than 160 01/19/20 17:15 04/18/20 17:14 01/20/20 03:59 Insulin Aspart (NovoLOG) BEFORE MEALS AND HS SUBQ 01/19/20 21:00 04/18/20 20:59 01/20/20 16:43 Iohexol (Omnipaque 350 100ml) 100 ml NOW PRN INJ Radiology Procedure 01/19/20 14:30 01/21/20 14:26 Labetalol HCl (Normodyne) 20 mg Q1H PRN IV sbo more than 180 01/19/20 17:15 02/18/20 17:14 Ondansetron HCl (Zofran) 4 mg Q6H PRN IVP Nausea & Vomiting 01/19/20 17:15 02/18/20 17:14 Polyethylene Glycol (Miralax) 17 gm DAILYPRN PRN ORAL Constipation 01/19/20 17:15 02/18/20 17:14 Sitagliptin Phosphate (Januvia) 50 mg ACBREAKFAST ORAL 01/20/20 07:00 02/19/20 06:59 01/20/20 08:03 Temazepam (Restoril) 15 mg HSPRN PRN ORAL Insomnia 01/19/20 17:15 01/26/20 17:14 Allergies: Coded Allergies: No Known Allergies (Unverified , 12/19/14) patient states no known drug allergy Subjective awake, alert, responsive complaining of pelvic p Objective Last Vital Signs Date Time Temp Pulse Resp B/P (MAP) Pulse Ox O2 Delivery O2 Flow Rate FiO2 01/20/20 19:01 73 17 96 Room Air 21 01/20/20 16:00 97.3 146/55 (85) 01/19/20 17:24 2.0 Laboratory Tests Test 01/19/20 21:51 01/19/20 22:35 01/20/20 04:46 01/20/20 05:34 POC Whole Blood Glucose Pending 191 MG/DL (74-106) H Troponin I 0.096 ng/mL (0.000-0.056) 0.092 ng/mL (0.000-0.056) Sodium Level 138 MMOL/L (136-145) Potassium Level 3.9 MMOL/L (3.5-5.1) Chloride Level 99 MMOL/L (98-107) Carbon Dioxide Level 33 MMOL/L (21-32) H Anion Gap 6 mmol/L (5-15) Blood Urea Nitrogen 24 mg/dL (7-18) H Creatinine 1.5 MG/DL (0.55-1.30) H Estimat Glomerular Filtration Rate 40.0 mL/min (>60) Glucose Level 198 MG/DL (74-106) H Calcium Level 8.3 MG/DL (8.5-10.1) L Pro-B-Type Natriuretic Peptide 55208 pg/mL (0-125) H Test 01/20/20 11:17 01/20/20 16:35 POC Whole Blood Glucose 200 MG/DL (74-106) H 154 MG/DL (74-106) H Microbiology Date/Time Source Procedure Growth Status 01/19/20 14:30 Nasopharynx SARS-CoV-2 RdRp Gene Assay - Final Complete Intake and Output 01/19/20 01/20/20 19:00 07:00 Intake Total 240 ml Balance 240 ml Intake Oral 240 ml # Voids 1 2 # Bowel Movements 1 Objective General: No acute distress, awake and alert HEENT: NCAT, sclera anicteric, PERRL, EOMI. Neck: Supple, no significant jugular venous distention, Lungs: Fair inspiratory effort,clear to auscultation bilaterally, no Wheeze or Rales. Heart: Irregular rate and rhythm, normal S1/S2, no murmurs/gallops Abdomen: soft, nontender, nondistended. Normoactive bowel sounds. / Rectal: Refused and deferred. Extremities: No Cyanosis , clubbing, + 1 LE's edema. Neuro: A&O x 3, Able to move all extremities Skin: warm, no rashes or lesions Psych: Normal mood and affect Assessment/Plan Assessment/Plan ASSESSMENT: This is an 84-year-old female with: 1. Shortness of breath. 2. persistent Atrial fibrillation. 3. Diabetes type 2. 4. Hypertension. 5. multiple myeloma. 6. Liver cirrhosis. 7. Congestive heart failure. 8. History of fall with pelvic fracture status post of ORIF TREATMENT: 1. Atrial fibrillation. A Cardiology consultation has been obtained with Dr. Chauncey Lynne. We will follow recommendations of Cardiology. The patient is currently on Eliquis. 2. Diabetes type 2. NovoLog sliding scale has been instituted. 3. Hypertension. Continue Coreg as above. Continue benazepril and diltiazem as above. 4. multiple myeloma under chemotherapy by Dr. Colvin 5. Congestive heart failure. As above, a Cardiology consultation has been obtained with Dr. Chauncey Lynne. 6. History of liver cirrhosis. monitor labs, PT mobility CODE STATUS: Full code DVT prophylaxis: Misael Law MD Jan 20, 2020 20:03
--- NOTE | 2020-01-20 20:15 | Consultation ---
DATE OF CONSULTATION: 01/20/2020 CARDIAC CONSULTATION REFERRING PHYSICIAN: Misael Dubon M.D. REASON FOR REFERRAL: Shortness of breath. HISTORY OF PRESENT ILLNESS: This is an elderly female who is known to me from prior evaluation and hospitalization. The patient was recently discharged from [facility] because of multiple issues. Apparently, she has been doing well. She has received some chemotherapy for multiple myeloma and has subsequently developed shortness of breath after receiving the chemotherapy, aggravated. She developed some chest tightness according to the ER physician's note. To me, she actually denies any chest pain. Denies any shortness of breath at this time. Denies any dizziness or lightheadedness. No heart pounding or palpitation. Her main symptom at this time is low back pain. The patient was comfortable last night apparently after she was admitted to the hospital. PAST MEDICAL HISTORY: Positive for history of toxic metabolic encephalopathy, prior history of bacteremia, urinary tract infection, renal failure, moderate to severe mitral regurgitation, tricuspid regurgitation, permanent atrial fibrillation, on anticoagulation, history of compression fracture of the spine with epidural hematoma, history of hypertension, hyperlipidemia, hyponatremia secondary to SIADH, pulmonary hypertension, multiple myeloma, history of peripheral artery embolism, diabetes mellitus, congestive heart failure, and obesity. She has had a history of fall with blunt head injury, status post parietal hematoma and bilateral sacral fractures, closed reduction and percutaneous pinning 01:35 in December of this year, history of mechanical fall with multiple pelvic fractures, status post closed reduction. ALLERGIES: She is not allergic to any medications. SOCIAL HISTORY: She does not smoke or drink alcoholic beverages. She lives at home. REVIEW OF SYSTEMS: GASTROINTESTINAL: She denies any nausea, vomiting, or diarrhea. She is constipated. GENITOURINARY: No discomfort on urination. PULMONARY: No coughing or wheezing. CONSTITUTIONAL: Denies any fever, chills, or night sweats. MUSCULOSKELETAL: Recent pain in the lower back and buttock area. PHYSICAL EXAMINATION: GENERAL: An elderly female, in no respiratory distress. NECK: Supple. No jugular venous distention. LUNGS: Relatively clear to auscultation, percussion. CARDIAC: Irregularly irregular, not tachycardic. No heaves or thrills or gallops. There is a holosystolic regurgitant murmur noted. ABDOMEN: Soft, nontender. Positive bowel sounds. EXTREMITIES: 1 to 2+ edema of the lower extremities bilaterally above the ankle. LABORATORY VALUES: White count of 12.6, hemoglobin of 10.5, and platelet count of 272. Her cardiac enzymes, troponin of 0.107, 0.096, 0.092, relatively flat. Her proBNP is 2296. Her chemistries, sodium was 138, potassium 3.9, chloride 99, bicarb 32, BUN of 24, creatinine 1.5, and glucose of 186. Lactic acid of 1.2 and alkaline phosphatase of 259. A CT pulmonary angiogram was performed in the emergency room and showed no evidence of central or transsegmental pulmonary embolism, segmental pulmonary artery is limited due to respiratory artifact. Small pulmonary emboli at this level cannot be excluded. Moderate to severe cardiomegaly with evidence of right ventricular systolic dysfunction, small right pleural effusion associated with atelectasis, compression fracture of the L1, and possible cirrhosis. A chest x-ray was performed today that showed no significant change with lung marcelo being clear bilaterally. Cardiomegaly unchanged. CP angles were clear. V/Q scan of the lungs was performed, showed limited evaluation, intermediate probability for pulmonary embolism, possibility of emphysematous changes and COPD. ASSESSMENT AND PLAN: 1. Acute respiratory dysfunction post chemo. 2. Congestive heart failure and tricuspid regurgitation, severe. 3. Atrial fibrillation. 4. History of peripheral embolism from atrial fibrillation. 5. History of multiple falls. 6. Pelvic fracture recently. Dr. Dubon and Dr. Matias, this patient was seen in cardiac consultation. The patient has received some intravenous diuretics overnight. She appears relatively well. Creatinine is on the way up. We would agree with decrease in the dose of the Lasix to maybe once or twice a day. If the patient has a flat troponin line, consider myocardial ischemia evaluation as an outpatient in the future. Chauncey Lynne M.D. DR: MELODY JOB#: [id number] CC:
[2020-01-20] MEDS: Eliquis 5mg tablet ORAL SCH (21:11)
[2020-01-21] VITALS (8 sets, daily range): BP systolic 123–173; BP diastolic 53–85
[2020-01-21] MEDS: NovoLOG Insulin Flexpen SUBQ SCH ×4 (06:12→20:29)
[2020-01-21] MEDS: sitaGLIPtin 50mg tab ORAL SCH (06:13)
[2020-01-21 07:06] LABS: BASOPHILS % (AUTO) 0.2 % (0.0-2.0); EOSINOPHILS % (AUTO) 0.3 % (0.0-3.0); HEMATOCRIT 30.5 % (37.0-47.0); HEMOGLOBIN 9.6 G/DL (12.0-16.0); LYMPHOCYTES % (AUTO) 10.8 % (20.0-45.0); MEAN CORPUSCULAR VOLUME 96 FL (80-99); MONOCYTES % (AUTO) 8.1 % (1.0-10.0); NEUTROPHILS % (AUTO) 80.6 % (45.0-75.0); PLATELET COUNT 219 K/UL (150-450); RED BLOOD COUNT 3.19 M/UL (4.20-5.40); RED CELL DISTRIBUTION WIDTH 20.2 % (11.6-14.8); WHITE BLOOD COUNT 5.3 K/UL (4.8-10.8)
[2020-01-21 07:36] LABS: ALANINE AMINOTRANSFERASE 17 U/L (12-78); ALBUMIN/GLOBULIN RATIO 0.9 (1.0-2.7); ALKALINE PHOSPHATASE 205 U/L (46-116); ANION GAP 5 mmol/L (5-15); ASPARTATE AMINO TRANSFERASE 24 U/L (15-37); BILIRUBIN,TOTAL 0.7 MG/DL (0.2-1.0); BLOOD UREA NITROGEN 28 mg/dL (7-18); CALCIUM 8.3 MG/DL (8.5-10.1); CARBON DIOXIDE 33 MMOL/L (21-32); CHLORIDE 100 MMOL/L (98-107); CREATININE 1.5 MG/DL (0.55-1.30); PHOSPHORUS 3.5 MG/DL (2.5-4.9); POTASSIUM 3.4 MMOL/L (3.5-5.1); SODIUM 138 MMOL/L (136-145)
--- NOTE | 2020-01-21 07:46 | General Progress Note ---
Assessment/Plan Problem List: (1) HTN (hypertension) ICD Codes: I10 - HTN (hypertension) SNOMED: 42032991 (2) DM (diabetes mellitus) ICD Codes: E11.9 - DM (diabetes mellitus) SNOMED: 47711565 (3) UTI (lower urinary tract infection) ICD Codes: N39.0 - Urinary tract infection, site not specified SNOMED: 1778276 (4) Atrial fibrillation ICD Codes: I48.91 - Atrial fibrillation SNOMED: 21476558 Assessment/Plan: continue Januvia 50 mg daily continue Novolog sliding scale ac / hs Subjective Allergies: Coded Allergies: No Known Allergies (Unverified , 12/19/14) patient states no known drug allergy Subjective events noted fair glycemic control Item Value Date Time Bedside Blood Glucose 129 mg/dl H 01/21/20 0608 Bedside Blood Glucose 138 mg/dl H 01/20/20 2100 Bedside Blood Glucose 154 mg/dl H 01/20/20 1643 Bedside Blood Glucose 200 mg/dl H 01/20/20 1206 Bedside Blood Glucose 191 mg/dl H 01/20/20 0623 Objective Last 24 Hour Vital Signs Date Time Temp Pulse Resp B/P (MAP) Pulse Ox O2 Delivery O2 Flow Rate FiO2 01/21/20 06:30 78 147/60 (89) 01/21/20 04:05 96.1 74 20 173/75 (107) 97 01/21/20 04:00 66 01/21/20 03:47 163/60 01/21/20 03:32 72 163/60 (94) 01/21/20 00:00 97.0 82 20 138/85 (102) 95 01/21/20 00:00 62 01/20/20 21:11 85 152/75 01/20/20 21:00 Room Air 01/20/20 20:00 96.8 85 20 152/75 (100) 97 01/20/20 20:00 62 01/20/20 19:01 73 17 96 Room Air 21 01/20/20 16:00 97.3 62 18 146/55 (85) 97 01/20/20 16:00 69 01/20/20 12:00 74 01/20/20 12:00 97.3 64 18 130/53 (78) 98 01/20/20 09:00 Room Air 01/20/20 08:47 94 122/86 01/20/20 08:00 88 01/20/20 08:00 98.1 94 18 122/86 (98) 96 Intake and Output 01/20/20 01/21/20 19:00 07:00 Intake Total 600 ml Balance 600 ml Intake Oral 600 ml # Voids 3 3 Laboratory Tests 01/20/20 11:17: POC Whole Blood Glucose 200H 01/20/20 16:35: POC Whole Blood Glucose 154H 01/21/20 06:00: White Blood Count 5.3, Red Blood Count 3.19L, Hemoglobin 9.6L, Hematocrit 30.5L , Mean Corpuscular Volume 96, Mean Corpuscular Hemoglobin 30.1, Mean Corpuscular Hemoglobin Concent 31.4L, Red Cell Distribution Width 20.2H, Platelet Count 219, Mean Platelet Volume 7.2, Neutrophils (%) (Auto) 80.6H, Lymphocytes (%) (Auto) 10.8L, Monocytes (%) (Auto) 8.1, Eosinophils (%) (Auto) 0.3, Basophils (%) (Auto) 0.2, Erythrocyte Sedimentation Rate [Pending], Sodium Level 138, Potassium Level 3.4L, Chloride Level 100, Carbon Dioxide Level 33H, Anion Gap 5, Blood Urea Nitrogen 28H, Creatinine 1.5H, Estimat Glomerular Filtration Rate 40.0, Glucose Level 129H, Calcium Level 8.3L, Phosphorus Level 3.5, Magnesium Level 1.7L, Total Bilirubin 0.7, Aspartate Amino Transf (AST/SGOT ) 24, Alanine Aminotransferase (ALT/SGPT) 17, Alkaline Phosphatase 205H, Troponin I 0.100H, C-Reactive Protein, Quantitative 2.8H, Pro-B-Type Natriuretic Peptide > 95796L, Total Protein 6.4, Albumin 3.0L, Globulin 3.4, Albumin/Globulin Ratio 0.9L 01/21/20 06:10: POC Whole Blood Glucose [Pending] Height (Feet): 5 Height (Inches): 1.00 Weight (Pounds): 147 General Appearance: no apparent distress Neck: normal alignment Cardiovascular: normal rate Respiratory/Chest: lungs clear Abdomen: normal bowel sounds Objective Current Medications Medications (Trade) Dose Ordered Sig/Farhad Route PRN Reason Start Time Stop Time Status Last Admin Dose Admin Acetaminophen (Tylenol) 650 mg Q4H PRN ORAL Fever 01/19/20 17:15 02/18/20 17:14 01/21/20 03:57 Albuterol/ Ipratropium (Albuterol/ Ipratropium) 3 ml Q4H PRN HHN Shortness of Breath 01/19/20 17:15 01/24/20 17:14 Apixaban (Eliquis) 5 mg BID ORAL 01/20/20 20:30 04/19/20 20:29 01/20/20 21:11 Artificial Tears (Akwa-Tears) 1 drop Q12HR BOTH EYES 01/20/20 21:00 02/19/20 20:59 01/20/20 21:11 Carvedilol (Coreg) 6.25 mg EVERY 12 HOURS ORAL 01/19/20 21:00 02/18/20 20:59 01/20/20 21:11 Dextrose (Dextrose 50%) 25 ml Q30M PRN IV Hypoglycemia 01/19/20 17:15 04/18/20 17:14 Dextrose (Dextrose 50%) 50 ml Q30M PRN IV Hypoglycemia 01/19/20 17:15 04/18/20 17:14 Enalaprilat (Vasotec) 2.5 mg Q4H PRN IV sbp more than 200 01/19/20 17:15 02/18/20 17:14 Furosemide (Lasix) 40 mg DAILYPRN IV 01/20/20 19:00 02/19/20 18:59 Gabapentin (Neurontin) 100 mg THREE TIMES A DAY ORAL 01/19/20 18:00 02/18/20 17:59 01/20/20 18:12 Hydralazine HCl (Apresoline) 20 mg Q4H PRN IV sbp more than 160 01/19/20 17:15 04/18/20 17:14 01/21/20 03:47 Insulin Aspart (NovoLOG) BEFORE MEALS AND HS SUBQ 01/19/20 21:00 04/18/20 20:59 01/20/20 16:43 Iohexol (Omnipaque 350 100ml) 100 ml NOW PRN INJ Radiology Procedure 01/19/20 14:30 01/21/20 14:26 Labetalol HCl (Normodyne) 20 mg Q1H PRN IV sbo more than 180 01/19/20 17:15 8/29/20 17:14 Ondansetron HCl (Zofran) 4 mg Q6H PRN IVP Nausea & Vomiting 01/19/20 17:15 02/18/20 17:14 Polyethylene Glycol (Miralax) 17 gm DAILYPRN PRN ORAL Constipation 01/19/20 17:15 02/18/20 17:14 Sitagliptin Phosphate (Januvia) 50 mg ACBREAKFAST ORAL 01/20/20 07:00 02/19/20 06:59 01/21/20 06:13 Temazepam (Restoril) 15 mg HSPRN PRN ORAL Insomnia 01/19/20 17:15 01/26/20 17:14 Maurizio Flores MD Jan 21, 2020 07:46
[2020-01-21] MEDS: Carvedilol 6.25mg Tab ORAL SCH ×2 (08:43→20:34)
[2020-01-21] MEDS: Eliquis 5mg tablet ORAL SCH ×2 (08:43→18:02)
--- NOTE | 2020-01-21 08:43 | Diagnostic Imaging Report ---
EXAM: XR Chest, 1 View CLINICAL HISTORY: DYSPNEA TECHNIQUE: Frontal view of the chest. COMPARISON: No relevant prior studies available. FINDINGS/IMPRESSION: Small bilateral pleural effusions. Mild vascular congestion. Coarse interstitial markings with emphysematous changes. No pneumothorax. Markedly severe cardiomegaly. Calcified aorta.
[2020-01-21] MEDS: Miralax 17gm pkt ORAL PRN (08:48)
--- NOTE | 2020-01-21 14:19 | Internal Med Progress Note ---
Subjective Date of Service: Jan 21, 2020 Physician Name Rafael Boykin Attending Physician Misael Dubon MD Current Medications Medications (Trade) Dose Ordered Sig/Farhad Route PRN Reason Start Time Stop Time Status Last Admin Dose Admin Acetaminophen (Tylenol) 650 mg Q4H PRN ORAL Fever 01/19/20 17:15 02/18/20 17:14 01/21/20 11:33 Albuterol/ Ipratropium (Albuterol/ Ipratropium) 3 ml Q4H PRN HHN Shortness of Breath 01/19/20 17:15 01/24/20 17:14 Apixaban (Eliquis) 5 mg BID ORAL 01/20/20 20:30 04/19/20 20:29 01/21/20 08:43 Artificial Tears (Akwa-Tears) 1 drop Q12HR BOTH EYES 01/20/20 21:00 02/19/20 20:59 01/21/20 08:43 Carvedilol (Coreg) 6.25 mg EVERY 12 HOURS ORAL 01/19/20 21:00 02/18/20 20:59 01/21/20 08:43 Dextrose (Dextrose 50%) 25 ml Q30M PRN IV Hypoglycemia 01/19/20 17:15 04/18/20 17:14 Dextrose (Dextrose 50%) 50 ml Q30M PRN IV Hypoglycemia 01/19/20 17:15 04/18/20 17:14 Enalaprilat (Vasotec) 2.5 mg Q4H PRN IV sbp more than 200 01/19/20 17:15 02/18/20 17:14 Furosemide (Lasix) 40 mg DAILYPRN IV 01/20/20 19:00 02/19/20 18:59 Gabapentin (Neurontin) 100 mg THREE TIMES A DAY ORAL 01/19/20 18:00 02/18/20 17:59 01/21/20 12:27 Hydralazine HCl (Apresoline) 20 mg Q4H PRN IV sbp more than 160 01/19/20 17:15 04/18/20 17:14 01/21/20 03:47 Insulin Aspart (NovoLOG) BEFORE MEALS AND HS SUBQ 01/19/20 21:00 04/18/20 20:59 01/20/20 16:43 Iohexol (Omnipaque 350 100ml) 100 ml NOW PRN INJ Radiology Procedure 01/19/20 14:30 01/21/20 14:26 Labetalol HCl (Normodyne) 20 mg Q1H PRN IV sbo more than 180 01/19/20 17:15 02/18/20 17:14 Ondansetron HCl (Zofran) 4 mg Q6H PRN IVP Nausea & Vomiting 01/19/20 17:15 02/18/20 17:14 Polyethylene Glycol (Miralax) 17 gm DAILYPRN PRN ORAL Constipation 01/19/20 17:15 02/18/20 17:14 01/21/20 08:48 Sitagliptin Phosphate (Januvia) 50 mg ACBREAKFAST ORAL 01/20/20 07:00 02/19/20 06:59 01/21/20 06:13 Temazepam (Restoril) 15 mg HSPRN PRN ORAL Insomnia 01/19/20 17:15 01/26/20 17:14 Allergies: Coded Allergies: No Known Allergies (Unverified , 12/19/14) patient states no known drug allergy ROS Limited/Unobtainable: No Constitutional: Reports: no symptoms HEENT: Reports: no symptoms Cardiovascular: Reports: no symptoms Respiratory: Reports: shortness of breath Gastrointestinal/Abdominal: Reports: no symptoms Genitourinary: Reports: no symptoms Neurologic/Psychiatric: Reports: no symptoms Subjective 84 YO F with history of multiple myeloma, currently undergoing chemotherapy, admitted with shortness of breath. Now atrial fibrillation. Cover for Int Sergio- Dr Dubon Objective Last Vital Signs Date Time Temp Pulse Resp B/P (MAP) Pulse Ox O2 Delivery O2 Flow Rate FiO2 01/21/20 12:00 71 01/21/20 12:00 96.6 18 135/79 (97) 97 01/21/20 09:00 Room Air 01/20/20 19:01 21 01/19/20 17:24 2.0 Laboratory Tests Test 01/20/20 16:35 01/21/20 06:00 01/21/20 06:10 01/21/20 11:41 POC Whole Blood Glucose 154 MG/DL (74-106) H Pending 122 MG/DL (74-106) H White Blood Count 5.3 K/UL (4.8-10.8) Red Blood Count 3.19 M/UL (4.20-5.40) L Hemoglobin 9.6 G/DL (12.0-16.0) L Hematocrit 30.5 % (37.0-47.0) L Mean Corpuscular Volume 96 FL (80-99) Mean Corpuscular Hemoglobin 30.1 PG (27.0-31.0) Mean Corpuscular Hemoglobin Concent 31.4 G/DL (32.0-36.0) L Red Cell Distribution Width 20.2 % (11.6-14.8) H Platelet Count 219 K/UL (150-450) Mean Platelet Volume 7.2 FL (6.5-10.1) Neutrophils (%) (Auto) 80.6 % (45.0-75.0) H Lymphocytes (%) (Auto) 10.8 % (20.0-45.0) L Monocytes (%) (Auto) 8.1 % (1.0-10.0) Eosinophils (%) (Auto) 0.3 % (0.0-3.0) Basophils (%) (Auto) 0.2 % (0.0-2.0) Erythrocyte Sedimentation Rate 43 MM/HR (0-30) H Sodium Level 138 MMOL/L (136-145) Potassium Level 3.4 MMOL/L (3.5-5.1) L Chloride Level 100 MMOL/L (98-107) Carbon Dioxide Level 33 MMOL/L (21-32) H Anion Gap 5 mmol/L (5-15) Blood Urea Nitrogen 28 mg/dL (7-18) H Creatinine 1.5 MG/DL (0.55-1.30) H Estimat Glomerular Filtration Rate 40.0 mL/min (>60) Glucose Level 129 MG/DL (74-106) H Calcium Level 8.3 MG/DL (8.5-10.1) L Phosphorus Level 3.5 MG/DL (2.5-4.9) Magnesium Level 1.7 MG/DL (1.8-2.4) L Total Bilirubin 0.7 MG/DL (0.2-1.0) Aspartate Amino Transf (AST/SGOT) 24 U/L (15-37) Alanine Aminotransferase (ALT/SGPT) 17 U/L (12-78) Alkaline Phosphatase 205 U/L (46-116) H Troponin I 0.100 ng/mL (0.000-0.056) C-Reactive Protein, Quantitative 2.8 mg/dL (0.00-0.90) H Pro-B-Type Natriuretic Peptide > 66027 pg/mL (0-125) H Total Protein 6.4 G/DL (6.4-8.2) Albumin 3.0 G/DL (3.4-5.0) L Globulin 3.4 g/dL Albumin/Globulin Ratio 0.9 (1.0-2.7) L Microbiology Date/Time Source Procedure Growth Status 01/19/20 14:30 Blood Blood Culture - Preliminary NO GROWTH AFTER 24 HOURS Resulted 01/19/20 14:15 Blood Blood Culture - Preliminary NO GROWTH AFTER 24 HOURS Resulted 01/19/20 14:30 Nasopharynx SARS-CoV-2 RdRp Gene Assay - Final Complete Intake and Output 01/20/20 01/21/20 19:00 07:00 Intake Total 600 ml Balance 600 ml Intake Oral 600 ml # Voids 3 3 Objective PHYSICAL EXAMINATION: GENERAL: The patient is a well-developed and well-nourished [place]-speaking female, in no apparent distress. HEENT: Eyes, pupils are equal and responsive to light and accommodation. Extraocular movements are intact. NECK: Supple without lymphadenopathy. CHEST: Lungs are clear to auscultation bilaterally without wheezes or rales. CARDIOVASCULAR: Regular rhythm and rate. S1, S2 normal without murmurs, rubs, or gallops. ABDOMEN: Soft, nontender, and nondistended. Positive bowel sounds. No evidence of hepatosplenomegaly. Currently, no rebound or guarding noted. EXTREMITIES: Negative for clubbing, cyanosis, or edema. RECTAL/GENITAL: Not performed. NEUROLOGIC: Cranial nerves II through XII are grossly intact without focal deficits. Motor strength is 5/5 bilaterally. Deep tendon reflexes are 2+ plantar. Assessment/Plan Assessment/Plan Assessment/Plan Assessment/Plan Assessment/Plan ASSESSMENT: This is an 84-year-old female with: 1. Shortness of breath. 2. persistent Atrial fibrillation. 3. Diabetes type 2. 4. Hypertension. 5. multiple myeloma. 6. Liver cirrhosis. 7. Congestive heart failure. 8. History of fall with pelvic fracture status post of ORIF TREATMENT: 1. Atrial fibrillation. A Cardiology consultation has been obtained with Dr. Chauncey Lynne. We will follow recommendations of Cardiology. The patient is currently on Eliquis. 2. Diabetes type 2. A NovoLog sliding scale has been instituted. 3. Hypertension. Continue Coreg as above. Continue benazepril and diltiazem as above. 4. multiple myeloma under chemotherapy by Dr. Colvin 5. Congestive heart failure. As above, a Cardiology consultation has been obtained with Dr. Chauncey Lynne. 6. History of liver cirrhosis. 7. PT mobility 8. CODE STATUS: Full code 9. DVT prophylaxis: Rafael Redmond MD Jan 21, 2020 14:19
--- NOTE | 2020-01-21 15:14 | Cardiology Progress Note ---
Assessment/Plan Assessment/Plan 1.Permanent atrial fibrillation. 2.Shgffgri-[id number] mitral regurgitation and tricuspid regurgitation. 3.History of multiple falls. 4.Recent diagnosis of multiple myeloma. 5.History of peripheral arterial embolism. 6.History of epidural hematoma 7. CHF sound ok on eliquis dc coreg may need Cardizem resumed tomorrow swithc to once a day lasix lasix 40 mg po bid at home trop without peak or brittnee will consider out pt ischemia eval in future to dc home tomorrow Subjective Cardiovascular: Denies: chest pain, lightheadedness, palpitations Respiratory: Denies: cough, shortness of breath Gastrointestinal/Abdominal: Denies: abdominal pain Genitourinary: Denies: burning Subjective much improved staff tranlasting in fact miguel corona good she got up adn walked with the waker next ot her bed Objective Last 24 Hour Vital Signs Date Time Temp Pulse Resp B/P (MAP) Pulse Ox O2 Delivery O2 Flow Rate FiO2 01/21/20 12:00 71 01/21/20 12:00 96.6 85 18 135/79 (97) 97 01/21/20 09:00 Room Air 01/21/20 08:43 77 123/54 01/21/20 08:00 77 01/21/20 08:00 98.1 76 18 123/54 (77) 97 01/21/20 06:30 78 147/60 (89) 01/21/20 04:05 96.1 74 20 173/75 (107) 97 01/21/20 04:00 66 01/21/20 03:47 163/60 01/21/20 03:32 72 163/60 (94) 01/21/20 00:00 97.0 82 20 138/85 (102) 95 01/21/20 00:00 62 01/20/20 21:11 85 152/75 01/20/20 21:00 Room Air 01/20/20 20:00 96.8 85 20 152/75 (100) 97 01/20/20 20:00 62 01/20/20 19:01 73 17 96 Room Air 21 01/20/20 16:00 97.3 62 18 146/55 (85) 97 01/20/20 16:00 69 General Appearance: no apparent distress, alert Neck: supple Cardiovascular: normal rate Respiratory/Chest: lungs clear Abdomen: normal bowel sounds, non tender, soft Extremities: trace edema Intake and Output 01/20/20 01/21/20 19:00 07:00 Intake Total 600 ml Balance 600 ml Intake Oral 600 ml # Voids 3 3 Laboratory Tests Test 01/20/20 16:35 01/21/20 06:00 01/21/20 06:10 01/21/20 11:41 POC Whole Blood Glucose 154 MG/DL (74-106) H Pending 122 MG/DL (74-106) H White Blood Count 5.3 K/UL (4.8-10.8) Red Blood Count 3.19 M/UL (4.20-5.40) L Hemoglobin 9.6 G/DL (12.0-16.0) L Hematocrit 30.5 % (37.0-47.0) L Mean Corpuscular Volume 96 FL (80-99) Mean Corpuscular Hemoglobin 30.1 PG (27.0-31.0) Mean Corpuscular Hemoglobin Concent 31.4 G/DL (32.0-36.0) L Red Cell Distribution Width 20.2 % (11.6-14.8) H Platelet Count 219 K/UL (150-450) Mean Platelet Volume 7.2 FL (6.5-10.1) Neutrophils (%) (Auto) 80.6 % (45.0-75.0) H Lymphocytes (%) (Auto) 10.8 % (20.0-45.0) L Monocytes (%) (Auto) 8.1 % (1.0-10.0) Eosinophils (%) (Auto) 0.3 % (0.0-3.0) Basophils (%) (Auto) 0.2 % (0.0-2.0) Erythrocyte Sedimentation Rate 43 MM/HR (0-30) H Sodium Level 138 MMOL/L (136-145) Potassium Level 3.4 MMOL/L (3.5-5.1) L Chloride Level 100 MMOL/L (98-107) Carbon Dioxide Level 33 MMOL/L (21-32) H Anion Gap 5 mmol/L (5-15) Blood Urea Nitrogen 28 mg/dL (7-18) H Creatinine 1.5 MG/DL (0.55-1.30) H Estimat Glomerular Filtration Rate 40.0 mL/min (>60) Glucose Level 129 MG/DL (74-106) H Calcium Level 8.3 MG/DL (8.5-10.1) L Phosphorus Level 3.5 MG/DL (2.5-4.9) Magnesium Level 1.7 MG/DL (1.8-2.4) L Total Bilirubin 0.7 MG/DL (0.2-1.0) Aspartate Amino Transf (AST/SGOT) 24 U/L (15-37) Alanine Aminotransferase (ALT/SGPT) 17 U/L (12-78) Alkaline Phosphatase 205 U/L (46-116) H Troponin I 0.100 ng/mL (0.000-0.056) C-Reactive Protein, Quantitative 2.8 mg/dL (0.00-0.90) H Pro-B-Type Natriuretic Peptide > 61126 pg/mL (0-125) H Total Protein 6.4 G/DL (6.4-8.2) Albumin 3.0 G/DL (3.4-5.0) L Globulin 3.4 g/dL Albumin/Globulin Ratio 0.9 (1.0-2.7) L Microbiology Date/Time Source Procedure Growth Status 01/19/20 14:30 Blood Blood Culture - Preliminary NO GROWTH AFTER 24 HOURS Resulted 01/19/20 14:15 Blood Blood Culture - Preliminary NO GROWTH AFTER 24 HOURS Resulted 01/19/20 14:30 Nasopharynx SARS-CoV-2 RdRp Gene Assay - Final Complete Chauncey Lynne MD Jan 21, 2020 15:14
--- NOTE | 2020-01-21 15:24 | Pulmonology Progress Note ---
Subjective ROS Limited/Unobtainable: No Constitutional: Reports: no symptoms HEENT: Repors: no symptoms Allergies: Coded Allergies: No Known Allergies (Unverified , 12/19/14) patient states no known drug allergy All Systems: reviewed and negative except above Objective Last 24 Hour Vital Signs Date Time Temp Pulse Resp B/P (MAP) Pulse Ox O2 Delivery O2 Flow Rate FiO2 01/21/20 12:00 71 01/21/20 12:00 96.6 85 18 135/79 (97) 97 01/21/20 09:00 Room Air 01/21/20 08:43 77 123/54 01/21/20 08:00 77 01/21/20 08:00 98.1 76 18 123/54 (77) 97 01/21/20 06:30 78 147/60 (89) 01/21/20 04:05 96.1 74 20 173/75 (107) 97 01/21/20 04:00 66 01/21/20 03:47 163/60 01/21/20 03:32 72 163/60 (94) 01/21/20 00:00 97.0 82 20 138/85 (102) 95 01/21/20 00:00 62 01/20/20 21:11 85 152/75 01/20/20 21:00 Room Air 01/20/20 20:00 96.8 85 20 152/75 (100) 97 01/20/20 20:00 62 01/20/20 19:01 73 17 96 Room Air 21 01/20/20 16:00 97.3 62 18 146/55 (85) 97 01/20/20 16:00 69 Intake and Output 01/20/20 01/21/20 19:00 07:00 Intake Total 600 ml Balance 600 ml Intake Oral 600 ml # Voids 3 3 General Appearance: WD/WN HEENT: normocephalic, atraumatic Respiratory: chest wall non-tender, lungs clear Cardiovascular: normal peripheral pulses, normal rate Abdomen: normal bowel sounds, soft, non tender Extremities: no cyanosis, no clubbing Skin: no rash Neurologic: stock patcher II-XII grossly normal Microbiology Date/Time Source Procedure Growth Status 01/19/20 14:30 Blood Blood Culture - Preliminary NO GROWTH AFTER 24 HOURS Resulted 01/19/20 14:15 Blood Blood Culture - Preliminary NO GROWTH AFTER 24 HOURS Resulted 01/19/20 14:30 Nasopharynx SARS-CoV-2 RdRp Gene Assay - Final Complete Laboratory Tests 01/20/20 16:35: POC Whole Blood Glucose 154H 01/21/20 06:00: White Blood Count 5.3, Red Blood Count 3.19L, Hemoglobin 9.6L, Hematocrit 30.5L , Mean Corpuscular Volume 96, Mean Corpuscular Hemoglobin 30.1, Mean Corpuscular Hemoglobin Concent 31.4L, Red Cell Distribution Width 20.2H, Platelet Count 219, Mean Platelet Volume 7.2, Neutrophils (%) (Auto) 80.6H, Lymphocytes (%) (Auto) 10.8L, Monocytes (%) (Auto) 8.1, Eosinophils (%) (Auto) 0.3, Basophils (%) (Auto) 0.2, Erythrocyte Sedimentation Rate 43H, Sodium Level 138, Potassium Level 3.4L, Chloride Level 100, Carbon Dioxide Level 33H, Anion Gap 5, Blood Urea Nitrogen 28H, Creatinine 1.5H, Estimat Glomerular Filtration Rate 40.0, Glucose Level 129H, Calcium Level 8.3L, Phosphorus Level 3.5, Magnesium Level 1.7L, Total Bilirubin 0.7, Aspartate Amino Transf (AST/SGOT) 24 , Alanine Aminotransferase (ALT/SGPT) 17, Alkaline Phosphatase 205H, Troponin I 0.100H, C-Reactive Protein, Quantitative 2.8H, Pro-B-Type Natriuretic Peptide > 37226X, Total Protein 6.4, Albumin 3.0L, Globulin 3.4, Albumin/Globulin Ratio 0.9L 01/21/20 06:10: POC Whole Blood Glucose [Pending] 01/21/20 11:41: POC Whole Blood Glucose 122H Current Medications Medications (Trade) Dose Ordered Sig/Farhad Route PRN Reason Start Time Stop Time Status Last Admin Dose Admin Acetaminophen (Tylenol) 650 mg Q4H PRN ORAL Fever 01/19/20 17:15 02/18/20 17:14 01/21/20 11:33 Albuterol/ Ipratropium (Albuterol/ Ipratropium) 3 ml Q4H PRN HHN Shortness of Breath 01/19/20 17:15 01/24/20 17:14 Apixaban (Eliquis) 5 mg BID ORAL 01/20/20 20:30 04/19/20 20:29 01/21/20 08:43 Artificial Tears (Akwa-Tears) 1 drop Q12HR BOTH EYES 01/20/20 21:00 02/19/20 20:59 01/21/20 08:43 Carvedilol (Coreg) 6.25 mg EVERY 12 HOURS ORAL 01/19/20 21:00 02/18/20 20:59 01/21/20 08:43 Dextrose (Dextrose 50%) 25 ml Q30M PRN IV Hypoglycemia 01/19/20 17:15 04/18/20 17:14 Dextrose (Dextrose 50%) 50 ml Q30M PRN IV Hypoglycemia 01/19/20 17:15 04/18/20 17:14 Enalaprilat (Vasotec) 2.5 mg Q4H PRN IV sbp more than 200 01/19/20 17:15 02/18/20 17:14 Furosemide (Lasix) 40 mg DAILYPRN IV 01/20/20 19:00 02/19/20 18:59 Gabapentin (Neurontin) 100 mg THREE TIMES A DAY ORAL 01/19/20 18:00 02/18/20 17:59 01/21/20 12:27 Hydralazine HCl (Apresoline) 20 mg Q4H PRN IV sbp more than 160 01/19/20 17:15 04/18/20 17:14 01/21/20 03:47 Insulin Aspart (NovoLOG) BEFORE MEALS AND HS SUBQ 01/19/20 21:00 04/18/20 20:59 01/20/20 16:43 Labetalol HCl (Normodyne) 20 mg Q1H PRN IV sbo more than 180 01/19/20 17:15 02/18/20 17:14 Ondansetron HCl (Zofran) 4 mg Q6H PRN IVP Nausea & Vomiting 01/19/20 17:15 02/18/20 17:14 Polyethylene Glycol (Miralax) 17 gm DAILYPRN PRN ORAL Constipation 01/19/20 17:15 02/18/20 17:14 01/21/20 08:48 Potassium Chloride (K-Dur) 40 meq DAILY ORAL 01/21/20 14:15 01/23/20 14:14 01/21/20 14:24 Sitagliptin Phosphate (Januvia) 50 mg ACBREAKFAST ORAL 01/20/20 07:00 02/19/20 06:59 01/21/20 06:13 Temazepam (Restoril) 15 mg HSPRN PRN ORAL Insomnia 01/19/20 17:15 01/26/20 17:14 Assessment/Plan Problems: (1) Acute respiratory failure (2) Chemotherapy adverse reaction (3) Interstitial edema (4) UTI (lower urinary tract infection) (5) Atrial fibrillation (6) DM (diabetes mellitus) (7) HTN (hypertension) Assessment/Plan v/q intermediate doing much better rate controlled sliding scale diabetic diet\ pulmonary hypertension is chronic already on anticoagulation d/w Inga Eduardo MD Jan 21, 2020 15:24
[2020-01-22] VITALS (7 sets, daily range): BP systolic 100–162; BP diastolic 42–70
[2020-01-22 04:27] LABS: BASOPHILS % (AUTO) 0.6 % (0.0-2.0); EOSINOPHILS % (AUTO) 0.9 % (0.0-3.0); HEMATOCRIT 29.2 % (37.0-47.0); HEMOGLOBIN 9.2 G/DL (12.0-16.0); LYMPHOCYTES % (AUTO) 9.4 % (20.0-45.0); MEAN CORPUSCULAR VOLUME 95 FL (80-99); MONOCYTES % (AUTO) 9.4 % (1.0-10.0); NEUTROPHILS % (AUTO) 79.8 % (45.0-75.0); PLATELET COUNT 192 K/UL (150-450); RED BLOOD COUNT 3.06 M/UL (4.20-5.40); RED CELL DISTRIBUTION WIDTH 20.5 % (11.6-14.8); WHITE BLOOD COUNT 6.1 K/UL (4.8-10.8)
[2020-01-22 04:36] LABS: ANION GAP 4 mmol/L (5-15); BLOOD UREA NITROGEN 28 mg/dL (7-18); CALCIUM 7.8 MG/DL (8.5-10.1); CARBON DIOXIDE 33 MMOL/L (21-32); CHLORIDE 100 MMOL/L (98-107); CREATININE 1.4 MG/DL (0.55-1.30); POTASSIUM 3.9 MMOL/L (3.5-5.1); SODIUM 137 MMOL/L (136-145)
[2020-01-22] MEDS: NovoLOG Insulin Flexpen SUBQ SCH ×4 (06:30→20:43)
[2020-01-22] MEDS: sitaGLIPtin 50mg tab ORAL SCH (06:48)
--- NOTE | 2020-01-22 07:01 | General Progress Note ---
Assessment/Plan Problem List: (1) HTN (hypertension) ICD Codes: I10 - HTN (hypertension) SNOMED: 29258903 (2) DM (diabetes mellitus) ICD Codes: E11.9 - DM (diabetes mellitus) SNOMED: 21115615 (3) UTI (lower urinary tract infection) ICD Codes: N39.0 - Urinary tract infection, site not specified SNOMED: 0592932 (4) Atrial fibrillation ICD Codes: I48.91 - Atrial fibrillation SNOMED: 13191057 Assessment/Plan: continue Januvia 50 mg daily continue Novolog sliding scale ac / hs Subjective Allergies: Coded Allergies: No Known Allergies (Unverified , 12/19/14) patient states no known drug allergy Subjective events noted glucose values are controlled Item Value Date Time Bedside Blood Glucose 123 mg/dl H 01/22/20 0630 Bedside Blood Glucose 121 mg/dl H 01/21/20 2100 Bedside Blood Glucose 149 mg/dl H 01/21/20 1708 Bedside Blood Glucose 122 mg/dl H 01/21/20 1130 Bedside Blood Glucose 129 mg/dl H 01/21/20 0608 Objective Last 24 Hour Vital Signs Date Time Temp Pulse Resp B/P (MAP) Pulse Ox O2 Delivery O2 Flow Rate FiO2 01/22/20 06:48 161/70 01/22/20 06:37 161/70 (100) 01/22/20 04:00 96.8 88 16 150/67 (94) 99 01/22/20 04:00 75 01/22/20 00:41 97.7 01/22/20 00:00 96.8 91 18 157/66 (96) 98 01/22/20 00:00 75 01/21/20 21:00 Room Air 01/21/20 20:34 67 149/53 01/21/20 20:00 97.7 64 18 149/53 (85) 95 01/21/20 20:00 64 01/21/20 19:40 67 16 99 Room Air 21 01/21/20 16:00 69 01/21/20 16:00 96.6 85 18 135/79 (97) 97 01/21/20 12:00 71 01/21/20 12:00 96.6 85 18 135/79 (97) 97 01/21/20 09:00 Room Air 01/21/20 08:43 77 123/54 01/21/20 08:00 77 01/21/20 08:00 98.1 76 18 123/54 (77) 97 01/21/20 07:56 76 18 97 Room Air 21 Intake and Output 01/21/20 01/22/20 19:00 07:00 Intake Total 480 ml Balance 480 ml Intake Oral 480 ml # Voids 7 # Bowel Movements 1 1 Laboratory Tests 01/21/20 11:41: POC Whole Blood Glucose 122H 01/21/20 16:43: POC Whole Blood Glucose 149H 01/21/20 20:15: POC Whole Blood Glucose 121H 01/22/20 04:00: White Blood Count 6.1, Red Blood Count 3.06L, Hemoglobin 9.2L, Hematocrit 29.2L , Mean Corpuscular Volume 95, Mean Corpuscular Hemoglobin 30.2, Mean Corpuscular Hemoglobin Concent 31.6L, Red Cell Distribution Width 20.5H, Platelet Count 192, Mean Platelet Volume 6.9, Neutrophils (%) (Auto) 79.8H, Lymphocytes (%) (Auto) 9.4L, Monocytes (%) (Auto) 9.4, Eosinophils (%) (Auto) 0.9, Basophils (%) (Auto) 0.6, Sodium Level 137, Potassium Level 3.9, Chloride Level 100, Carbon Dioxide Level 33H, Anion Gap 4L, Blood Urea Nitrogen 28H, Creatinine 1.4H, Estimat Glomerular Filtration Rate 43.4, Glucose Level 133H, Calcium Level 7.8L 01/22/20 06:50: POC Whole Blood Glucose [Pending] Height (Feet): 5 Height (Inches): 1.00 Weight (Pounds): 147 General Appearance: no apparent distress Neck: normal alignment Cardiovascular: normal rate Respiratory/Chest: decreased breath sounds Abdomen: normal bowel sounds Objective Current Medications Medications (Trade) Dose Ordered Sig/Farhad Route PRN Reason Start Time Stop Time Status Last Admin Dose Admin Acetaminophen (Tylenol) 650 mg Q4H PRN ORAL Fever 01/19/20 17:15 02/18/20 17:14 01/22/20 00:11 Albuterol/ Ipratropium (Albuterol/ Ipratropium) 3 ml Q4H PRN HHN Shortness of Breath 01/19/20 17:15 01/24/20 17:14 Apixaban (Eliquis) 5 mg BID ORAL 01/20/20 20:30 04/19/20 20:29 01/21/20 18:02 Artificial Tears (Akwa-Tears) 1 drop Q12HR BOTH EYES 01/20/20 21:00 02/19/20 20:59 01/21/20 20:31 Carvedilol (Coreg) 6.25 mg EVERY 12 HOURS ORAL 01/19/20 21:00 02/18/20 20:59 01/21/20 20:34 Dextrose (Dextrose 50%) 25 ml Q30M PRN IV Hypoglycemia 01/19/20 17:15 04/18/20 17:14 Dextrose (Dextrose 50%) 50 ml Q30M PRN IV Hypoglycemia 01/19/20 17:15 04/18/20 17:14 Enalaprilat (Vasotec) 2.5 mg Q4H PRN IV sbp more than 200 01/19/20 17:15 02/18/20 17:14 Furosemide (Lasix) 40 mg DAILYPRN IV 01/20/20 19:00 02/19/20 18:59 Gabapentin (Neurontin) 100 mg THREE TIMES A DAY ORAL 01/19/20 18:00 02/18/20 17:59 01/21/20 18:02 Hydralazine HCl (Apresoline) 20 mg Q4H PRN IV sbp more than 160 01/19/20 17:15 04/18/20 17:14 01/22/20 06:48 Insulin Aspart (NovoLOG) BEFORE MEALS AND HS SUBQ 01/19/20 21:00 04/18/20 20:59 01/21/20 17:08 Labetalol HCl (Normodyne) 20 mg Q1H PRN IV sbo more than 180 01/19/20 17:15 02/18/20 17:14 Ondansetron HCl (Zofran) 4 mg Q6H PRN IVP Nausea & Vomiting 01/19/20 17:15 02/18/20 17:14 Polyethylene Glycol (Miralax) 17 gm DAILYPRN PRN ORAL Constipation 01/19/20 17:15 02/18/20 17:14 01/21/20 08:48 Potassium Chloride (K-Dur) 40 meq DAILY ORAL 01/21/20 14:15 01/23/20 14:14 01/21/20 14:24 Sitagliptin Phosphate (Januvia) 50 mg ACBREAKFAST ORAL 01/20/20 07:00 02/19/20 06:59 01/22/20 06:48 Temazepam (Restoril) 15 mg HSPRN PRN ORAL Insomnia 01/19/20 17:15 01/26/20 17:14 01/22/20 00:10 Maurizio Flores MD Jan 22, 2020 07:01
[2020-01-22] MEDS: Carvedilol 6.25mg Tab ORAL SCH ×2 (08:55→20:42)
[2020-01-22] MEDS: Eliquis 5mg tablet ORAL SCH ×2 (09:16→17:57)
--- NOTE | 2020-01-22 12:53 | Cardiology Progress Note ---
Assessment/Plan Assessment/Plan 1.Permanent atrial fibrillation. 2.Aguojchr-ce-mfirco mitral regurgitation and tricuspid regurgitation. 3.History of multiple falls. 4.Recent diagnosis of multiple myeloma. 5.History of peripheral arterial embolism. 6.History of epidural hematoma 7. CHF sound ok on eliquis on coreg hr seem controlled swithc to once a day lasix lasix 40 mg po bid at home trop without peak or brittnee will consider out pt ischemia eval in future to dc home Subjective Cardiovascular: Denies: chest pain, lightheadedness, palpitations Respiratory: Denies: shortness of breath Gastrointestinal/Abdominal: Denies: abdominal pain Genitourinary: Denies: burning Subjective much improved staff tranlasting in fact miguel corona good she got up adn walked with the waker next ot her bed Objective Last 24 Hour Vital Signs Date Time Temp Pulse Resp B/P (MAP) Pulse Ox O2 Delivery O2 Flow Rate FiO2 01/22/20 12:00 69 01/22/20 09:00 Room Air 01/22/20 08:55 78 112/42 01/22/20 08:22 78 01/22/20 08:00 97.5 83 20 112/42 (65) 98 01/22/20 06:48 161/70 01/22/20 06:37 161/70 (100) 01/22/20 04:00 96.8 88 16 150/67 (94) 99 01/22/20 04:00 75 01/22/20 00:41 97.7 01/22/20 00:00 96.8 91 18 157/66 (96) 98 01/22/20 00:00 75 01/21/20 21:00 Room Air 01/21/20 20:34 67 149/53 01/21/20 20:00 97.7 64 18 149/53 (85) 95 01/21/20 20:00 64 01/21/20 19:40 67 16 99 Room Air 21 01/21/20 16:00 69 01/21/20 16:00 96.6 85 18 135/79 (97) 97 General Appearance: no apparent distress, alert Neck: supple Cardiovascular: irregularly irregular Respiratory/Chest: lungs clear Abdomen: normal bowel sounds, non tender, soft Extremities: no swelling Intake and Output 01/21/20 01/22/20 19:00 07:00 Intake Total 480 ml 120 ml Balance 480 ml 120 ml Intake Oral 480 ml Other 120 ml # Voids 7 3 # Bowel Movements 1 2 Laboratory Tests Test 01/21/20 16:43 01/21/20 20:15 01/22/20 04:00 01/22/20 06:50 POC Whole Blood Glucose 149 MG/DL (74-106) H 121 MG/DL (74-106) H Pending White Blood Count 6.1 K/UL (4.8-10.8) Red Blood Count 3.06 M/UL (4.20-5.40) L Hemoglobin 9.2 G/DL (12.0-16.0) L Hematocrit 29.2 % (37.0-47.0) L Mean Corpuscular Volume 95 FL (80-99) Mean Corpuscular Hemoglobin 30.2 PG (27.0-31.0) Mean Corpuscular Hemoglobin Concent 31.6 G/DL (32.0-36.0) L Red Cell Distribution Width 20.5 % (11.6-14.8) H Platelet Count 192 K/UL (150-450) Mean Platelet Volume 6.9 FL (6.5-10.1) Neutrophils (%) (Auto) 79.8 % (45.0-75.0) H Lymphocytes (%) (Auto) 9.4 % (20.0-45.0) L Monocytes (%) (Auto) 9.4 % (1.0-10.0) Eosinophils (%) (Auto) 0.9 % (0.0-3.0) Basophils (%) (Auto) 0.6 % (0.0-2.0) Sodium Level 137 MMOL/L (136-145) Potassium Level 3.9 MMOL/L (3.5-5.1) Chloride Level 100 MMOL/L (98-107) Carbon Dioxide Level 33 MMOL/L (21-32) H Anion Gap 4 mmol/L (5-15) L Blood Urea Nitrogen 28 mg/dL (7-18) H Creatinine 1.4 MG/DL (0.55-1.30) H Estimat Glomerular Filtration Rate 43.4 mL/min (>60) Glucose Level 133 MG/DL (74-106) H Calcium Level 7.8 MG/DL (8.5-10.1) L Test 01/22/20 11:58 POC Whole Blood Glucose 177 MG/DL (74-106) H Microbiology Date/Time Source Procedure Growth Status 01/19/20 14:30 Blood Blood Culture - Preliminary NO GROWTH AFTER 48 HOURS Resulted 01/19/20 14:15 Blood Blood Culture - Preliminary NO GROWTH AFTER 48 HOURS Resulted 01/19/20 14:30 Nasopharynx SARS-CoV-2 RdRp Gene Assay - Final Complete Chauncey Lynne MD Jan 22, 2020 12:53
--- NOTE | 2020-01-22 15:27 | Pulmonology Progress Note ---
Subjective ROS Limited/Unobtainable: No Constitutional: Reports: no symptoms HEENT: Repors: no symptoms Allergies: Coded Allergies: No Known Allergies (Unverified , 12/19/14) patient states no known drug allergy All Systems: reviewed and negative except above Objective Last 24 Hour Vital Signs Date Time Temp Pulse Resp B/P (MAP) Pulse Ox O2 Delivery O2 Flow Rate FiO2 01/22/20 12:00 69 01/22/20 12:00 99.3 58 20 100/44 (62) 98 01/22/20 09:00 Room Air 01/22/20 08:55 78 112/42 01/22/20 08:22 78 01/22/20 08:00 97.5 83 20 112/42 (65) 98 01/22/20 08:00 80 18 98 Room Air 21 01/22/20 06:48 161/70 01/22/20 06:37 161/70 (100) 01/22/20 04:00 96.8 88 16 150/67 (94) 99 01/22/20 04:00 75 01/22/20 00:41 97.7 01/22/20 00:00 96.8 91 18 157/66 (96) 98 01/22/20 00:00 75 01/21/20 21:00 Room Air 01/21/20 20:34 67 149/53 01/21/20 20:00 97.7 64 18 149/53 (85) 95 01/21/20 20:00 64 01/21/20 19:40 67 16 99 Room Air 21 01/21/20 16:00 69 01/21/20 16:00 96.6 85 18 135/79 (97) 97 Intake and Output 01/21/20 01/22/20 18:59 06:59 Intake Total 480 ml 120 ml Balance 480 ml 120 ml Intake Oral 480 ml Other 120 ml # Voids 7 3 # Bowel Movements 1 2 General Appearance: WD/WN HEENT: normocephalic, atraumatic Respiratory: chest wall non-tender, lungs clear Cardiovascular: normal peripheral pulses, normal rate Abdomen: normal bowel sounds, soft, non tender Extremities: no cyanosis, no clubbing Skin: no rash Neurologic: eligibility consultant II-XII grossly normal Laboratory Tests 01/21/20 16:43: POC Whole Blood Glucose 149H 01/21/20 20:15: POC Whole Blood Glucose 121H 01/22/20 04:00: White Blood Count 6.1, Red Blood Count 3.06L, Hemoglobin 9.2L, Hematocrit 29.2L , Mean Corpuscular Volume 95, Mean Corpuscular Hemoglobin 30.2, Mean Corpuscular Hemoglobin Concent 31.6L, Red Cell Distribution Width 20.5H, Platelet Count 192, Mean Platelet Volume 6.9, Neutrophils (%) (Auto) 79.8H, Lymphocytes (%) (Auto) 9.4L, Monocytes (%) (Auto) 9.4, Eosinophils (%) (Auto) 0.9, Basophils (%) (Auto) 0.6, Sodium Level 137, Potassium Level 3.9, Chloride Level 100, Carbon Dioxide Level 33H, Anion Gap 4L, Blood Urea Nitrogen 28H, Creatinine 1.4H, Estimat Glomerular Filtration Rate 43.4, Glucose Level 133H, Calcium Level 7.8L 01/22/20 06:50: POC Whole Blood Glucose [Pending] 01/22/20 11:58: POC Whole Blood Glucose 177H Current Medications Medications (Trade) Dose Ordered Sig/Farhad Route PRN Reason Start Time Stop Time Status Last Admin Dose Admin Acetaminophen (Tylenol) 650 mg Q4H PRN ORAL Fever 01/19/20 17:15 02/18/20 17:14 01/22/20 00:11 Albuterol/ Ipratropium (Albuterol/ Ipratropium) 3 ml Q4H PRN HHN Shortness of Breath 01/19/20 17:15 01/24/20 17:14 Apixaban (Eliquis) 5 mg BID ORAL 01/20/20 20:30 04/19/20 20:29 01/22/20 09:16 Artificial Tears (Akwa-Tears) 1 drop Q12HR BOTH EYES 01/20/20 21:00 02/19/20 20:59 01/22/20 08:55 Carvedilol (Coreg) 6.25 mg EVERY 12 HOURS ORAL 01/19/20 21:00 02/18/20 20:59 01/22/20 08:55 Dextrose (Dextrose 50%) 25 ml Q30M PRN IV Hypoglycemia 01/19/20 17:15 04/18/20 17:14 Dextrose (Dextrose 50%) 50 ml Q30M PRN IV Hypoglycemia 01/19/20 17:15 04/18/20 17:14 Enalaprilat (Vasotec) 2.5 mg Q4H PRN IV sbp more than 200 01/19/20 17:15 02/18/20 17:14 Furosemide (Lasix) 40 mg DAILYPRN IV 01/20/20 19:00 02/19/20 18:59 Gabapentin (Neurontin) 100 mg THREE TIMES A DAY ORAL 01/19/20 18:00 02/18/20 17:59 01/22/20 12:07 Hydralazine HCl (Apresoline) 20 mg Q4H PRN IV sbp more than 160 01/19/20 17:15 04/18/20 17:14 01/22/20 06:48 Insulin Aspart (NovoLOG) BEFORE MEALS AND HS SUBQ 01/19/20 21:00 04/18/20 20:59 01/22/20 12:03 Labetalol HCl (Normodyne) 20 mg Q1H PRN IV sbo more than 180 01/19/20 17:15 02/18/20 17:14 Ondansetron HCl (Zofran) 4 mg Q6H PRN IVP Nausea & Vomiting 01/19/20 17:15 02/18/20 17:14 Polyethylene Glycol (Miralax) 17 gm DAILYPRN PRN ORAL Constipation 01/19/20 17:15 02/18/20 17:14 01/21/20 08:48 Potassium Chloride (K-Dur) 40 meq DAILY ORAL 01/21/20 14:15 01/23/20 14:14 01/22/20 08:55 Sitagliptin Phosphate (Januvia) 50 mg ACBREAKFAST ORAL 01/20/20 07:00 02/19/20 06:59 01/22/20 06:48 Temazepam (Restoril) 15 mg HSPRN PRN ORAL Insomnia 01/19/20 17:15 01/26/20 17:14 01/22/20 00:10 Assessment/Plan Problems: (1) Acute respiratory failure (2) Chemotherapy adverse reaction (3) Interstitial edema (4) UTI (lower urinary tract infection) (5) Atrial fibrillation (6) DM (diabetes mellitus) (7) HTN (hypertension) Assessment/Plan doing better v/q intermediate doing much better rate controlled sliding scale diabetic diet\ pulmonary hypertension is chronic already on anticoagulation Inga Matias MD Jan 22, 2020 15:27
--- NOTE | 2020-01-22 16:06 | Internal Med Progress Note ---
Subjective Date of Service: Jan 22, 2020 Physician Name Rafael Boykin Attending Physician Misael Dubon MD Current Medications Medications (Trade) Dose Ordered Sig/Farhad Route PRN Reason Start Time Stop Time Status Last Admin Dose Admin Acetaminophen (Tylenol) 650 mg Q4H PRN ORAL Fever 01/19/20 17:15 02/18/20 17:14 01/22/20 00:11 Albuterol/ Ipratropium (Albuterol/ Ipratropium) 3 ml Q4H PRN HHN Shortness of Breath 01/19/20 17:15 01/24/20 17:14 Apixaban (Eliquis) 5 mg BID ORAL 01/20/20 20:30 04/19/20 20:29 01/22/20 09:16 Artificial Tears (Akwa-Tears) 1 drop Q12HR BOTH EYES 01/20/20 21:00 02/19/20 20:59 01/22/20 08:55 Carvedilol (Coreg) 6.25 mg EVERY 12 HOURS ORAL 01/19/20 21:00 02/18/20 20:59 01/22/20 08:55 Dextrose (Dextrose 50%) 25 ml Q30M PRN IV Hypoglycemia 01/19/20 17:15 04/18/20 17:14 Dextrose (Dextrose 50%) 50 ml Q30M PRN IV Hypoglycemia 01/19/20 17:15 04/18/20 17:14 Enalaprilat (Vasotec) 2.5 mg Q4H PRN IV sbp more than 200 01/19/20 17:15 02/18/20 17:14 Furosemide (Lasix) 40 mg DAILYPRN IV 01/20/20 19:00 02/19/20 18:59 Gabapentin (Neurontin) 100 mg THREE TIMES A DAY ORAL 01/19/20 18:00 02/18/20 17:59 01/22/20 12:07 Hydralazine HCl (Apresoline) 20 mg Q4H PRN IV sbp more than 160 01/19/20 17:15 04/18/20 17:14 01/22/20 06:48 Insulin Aspart (NovoLOG) BEFORE MEALS AND HS SUBQ 01/19/20 21:00 04/18/20 20:59 01/22/20 12:03 Labetalol HCl (Normodyne) 20 mg Q1H PRN IV sbo more than 180 01/19/20 17:15 02/18/20 17:14 Ondansetron HCl (Zofran) 4 mg Q6H PRN IVP Nausea & Vomiting 01/19/20 17:15 02/18/20 17:14 Polyethylene Glycol (Miralax) 17 gm DAILYPRN PRN ORAL Constipation 01/19/20 17:15 02/18/20 17:14 01/21/20 08:48 Potassium Chloride (K-Dur) 40 meq DAILY ORAL 01/21/20 14:15 01/23/20 14:14 01/22/20 08:55 Sitagliptin Phosphate (Januvia) 50 mg ACBREAKFAST ORAL 01/20/20 07:00 02/19/20 06:59 01/22/20 06:48 Temazepam (Restoril) 15 mg HSPRN PRN ORAL Insomnia 01/19/20 17:15 01/26/20 17:14 01/22/20 00:10 Allergies: Coded Allergies: No Known Allergies (Unverified , 12/19/14) patient states no known drug allergy ROS Limited/Unobtainable: No Constitutional: Reports: no symptoms HEENT: Reports: no symptoms Cardiovascular: Reports: no symptoms Respiratory: Reports: shortness of breath Gastrointestinal/Abdominal: Reports: no symptoms Genitourinary: Reports: no symptoms Subjective 84 YO F with history of multiple myeloma, currently undergoing chemotherapy, admitted with shortness of breath. Now atrial fibrillation. Cover for Int Sergio- Dr Dubon Objective Last Vital Signs Date Time Temp Pulse Resp B/P (MAP) Pulse Ox O2 Delivery O2 Flow Rate FiO2 01/22/20 12:00 69 01/22/20 12:00 99.3 20 100/44 (62) 98 01/22/20 09:00 Room Air 01/22/20 08:00 21 01/19/20 17:24 2.0 Laboratory Tests Test 01/21/20 16:43 01/21/20 20:15 01/22/20 04:00 01/22/20 06:50 POC Whole Blood Glucose 149 MG/DL (74-106) H 121 MG/DL (74-106) H Pending White Blood Count 6.1 K/UL (4.8-10.8) Red Blood Count 3.06 M/UL (4.20-5.40) L Hemoglobin 9.2 G/DL (12.0-16.0) L Hematocrit 29.2 % (37.0-47.0) L Mean Corpuscular Volume 95 FL (80-99) Mean Corpuscular Hemoglobin 30.2 PG (27.0-31.0) Mean Corpuscular Hemoglobin Concent 31.6 G/DL (32.0-36.0) L Red Cell Distribution Width 20.5 % (11.6-14.8) H Platelet Count 192 K/UL (150-450) Mean Platelet Volume 6.9 FL (6.5-10.1) Neutrophils (%) (Auto) 79.8 % (45.0-75.0) H Lymphocytes (%) (Auto) 9.4 % (20.0-45.0) L Monocytes (%) (Auto) 9.4 % (1.0-10.0) Eosinophils (%) (Auto) 0.9 % (0.0-3.0) Basophils (%) (Auto) 0.6 % (0.0-2.0) Sodium Level 137 MMOL/L (136-145) Potassium Level 3.9 MMOL/L (3.5-5.1) Chloride Level 100 MMOL/L (98-107) Carbon Dioxide Level 33 MMOL/L (21-32) H Anion Gap 4 mmol/L (5-15) L Blood Urea Nitrogen 28 mg/dL (7-18) H Creatinine 1.4 MG/DL (0.55-1.30) H Estimat Glomerular Filtration Rate 43.4 mL/min (>60) Glucose Level 133 MG/DL (74-106) H Calcium Level 7.8 MG/DL (8.5-10.1) L Test 01/22/20 11:58 POC Whole Blood Glucose 177 MG/DL (74-106) H Intake and Output 01/21/20 01/22/20 19:00 07:00 Intake Total 480 ml 120 ml Balance 480 ml 120 ml Intake Oral 480 ml Other 120 ml # Voids 7 3 # Bowel Movements 1 2 Objective PHYSICAL EXAMINATION: GENERAL: The patient is a well-developed and well-nourished Pashto-speaking female, in no apparent distress. HEENT: Eyes, pupils are equal and responsive to light and accommodation. Extraocular movements are intact. NECK: Supple without lymphadenopathy. CHEST: Lungs are clear to auscultation bilaterally without wheezes or rales. CARDIOVASCULAR: Regular rhythm and rate. S1, S2 normal without murmurs, rubs, or gallops. ABDOMEN: Soft, nontender, and nondistended. Positive bowel sounds. No evidence of hepatosplenomegaly. Currently, no rebound or guarding noted. EXTREMITIES: Negative for clubbing, cyanosis, or edema. RECTAL/GENITAL: Not performed. NEUROLOGIC: Cranial nerves II through XII are grossly intact without focal deficits. Motor strength is 5/5 bilaterally. Deep tendon reflexes are 2+ plantar. Assessment/Plan Assessment/Plan Assessment/Plan Assessment/Plan Assessment/Plan ASSESSMENT: This is an 84-year-old female with: 1. Shortness of breath. 2. persistent Atrial fibrillation. 3. Diabetes type 2. 4. Hypertension. 5. multiple myeloma. 6. Liver cirrhosis. 7. Congestive heart failure. 8. History of fall with pelvic fracture status post of ORIF TREATMENT: 1. Atrial fibrillation. A Cardiology consultation has been obtained with Dr. Chauncey Lynne. We will follow recommendations of Cardiology. The patient is currently on Eliquis. 2. Diabetes type 2. A NovoLog sliding scale has been instituted. 3. Hypertension. Continue Coreg as above. Continue benazepril and diltiazem as above. 4. multiple myeloma under chemotherapy by Dr. Colvin 5. Congestive heart failure. As above, a Cardiology consultation has been obtained with Dr. Chauncey Lynne. 6. History of liver cirrhosis. 7. PT mobility 8. CODE STATUS: Full code 9. DVT prophylaxis: Rafael Redmond MD Jan 22, 2020 16:06
[2020-01-23] VITALS: BP 168/52
[2020-01-23 04:00] VITALS: BP 147/61
[2020-01-23] MEDS: NovoLOG Insulin Flexpen SUBQ SCH ×4 (06:22→21:34)
[2020-01-23] MEDS: sitaGLIPtin 50mg tab ORAL SCH (06:23)
--- NOTE | 2020-01-23 06:32 | General Progress Note ---
Assessment/Plan Problem List: (1) HTN (hypertension) ICD Codes: I10 - HTN (hypertension) SNOMED: 45886150 (2) DM (diabetes mellitus) ICD Codes: E11.9 - DM (diabetes mellitus) SNOMED: 99674442 (3) UTI (lower urinary tract infection) ICD Codes: N39.0 - Urinary tract infection, site not specified SNOMED: 6554431 (4) Atrial fibrillation ICD Codes: I48.91 - Atrial fibrillation SNOMED: 85756209 Assessment/Plan: continue Januvia 50 mg daily continue Novolog sliding scale ac / hs Subjective Allergies: Coded Allergies: No Known Allergies (Unverified , 12/19/14) patient states no known drug allergy All Systems: reviewed and negative except above Subjective events noted fair glycemic control without hypoglycemia Item Value Date Time Bedside Blood Glucose 133 mg/dl H 01/23/20 0622 Bedside Blood Glucose 175 mg/dl H 01/22/20 2100 Bedside Blood Glucose 148 mg/dl H 01/22/20 1627 Bedside Blood Glucose 177 mg/dl H 01/22/20 1203 Bedside Blood Glucose 123 mg/dl H 01/22/20 0630 Objective Last 24 Hour Vital Signs Date Time Temp Pulse Resp B/P (MAP) Pulse Ox O2 Delivery O2 Flow Rate FiO2 01/23/20 00:00 97.9 61 20 168/52 (90) 94 01/23/20 00:00 81 01/22/20 23:20 168/52 01/22/20 21:00 Room Air 01/22/20 20:42 79 162/69 01/22/20 20:25 77 18 96 Room Air 21 01/22/20 20:00 97.9 79 17 162/69 (100) 96 01/22/20 20:00 63 01/22/20 16:00 97.5 65 18 128/48 (74) 99 01/22/20 16:00 58 01/22/20 12:00 69 01/22/20 12:00 99.3 58 20 100/44 (62) 98 01/22/20 09:00 Room Air 01/22/20 08:55 78 112/42 01/22/20 08:22 78 01/22/20 08:00 97.5 83 20 112/42 (65) 98 01/22/20 08:00 80 18 98 Room Air 21 01/22/20 06:48 161/70 01/22/20 06:37 161/70 (100) Intake and Output 01/22/20 01/23/20 19:00 07:00 Intake Total 360 ml Balance 360 ml Intake Oral 360 ml # Voids 2 # Bowel Movements 1 1 Laboratory Tests 01/22/20 06:50: POC Whole Blood Glucose [Pending] 01/22/20 11:58: POC Whole Blood Glucose 177H 01/22/20 20:40: POC Whole Blood Glucose 146H 01/23/20 05:57: POC Whole Blood Glucose 133H 01/23/20 06:20: White Blood Count [Pending], Red Blood Count [Pending], Hemoglobin [Pending], Hematocrit [Pending], Mean Corpuscular Volume [Pending], Mean Corpuscular Hemoglobin [Pending], Mean Corpuscular Hemoglobin Concent [Pending], Red Cell Distribution Width [Pending], Platelet Count [Pending], Mean Platelet Volume [ Pending], Neutrophils (%) (Auto) [Pending], Lymphocytes (%) (Auto) [Pending], Monocytes (%) (Auto) [Pending], Eosinophils (%) (Auto) [Pending], Basophils (%) (Auto) [Pending], Sodium Level [Pending], Potassium Level [Pending], Chloride Level [Pending], Carbon Dioxide Level [Pending], Blood Urea Nitrogen [Pending], Creatinine [Pending], Estimat Glomerular Filtration Rate [Pending], Glucose Level [Pending], Calcium Level [Pending] Height (Feet): 5 Height (Inches): 1.00 Weight (Pounds): 147 General Appearance: no apparent distress Neck: normal alignment Cardiovascular: normal rate Abdomen: normal bowel sounds Pelvis: normal external exam Objective Current Medications Medications (Trade) Dose Ordered Sig/Farhad Route PRN Reason Start Time Stop Time Status Last Admin Dose Admin Acetaminophen (Tylenol) 650 mg Q4H PRN ORAL Fever 01/19/20 17:15 02/18/20 17:14 01/22/20 22:35 Albuterol/ Ipratropium (Albuterol/ Ipratropium) 3 ml Q4H PRN HHN Shortness of Breath 01/19/20 17:15 01/24/20 17:14 Apixaban (Eliquis) 5 mg BID ORAL 01/20/20 20:30 04/19/20 20:29 01/22/20 17:57 Artificial Tears (Akwa-Tears) 1 drop Q12HR BOTH EYES 01/20/20 21:00 02/19/20 20:59 01/22/20 20:41 Carvedilol (Coreg) 6.25 mg EVERY 12 HOURS ORAL 01/19/20 21:00 02/18/20 20:59 01/22/20 20:42 Dextrose (Dextrose 50%) 25 ml Q30M PRN IV Hypoglycemia 01/19/20 17:15 04/18/20 17:14 Dextrose (Dextrose 50%) 50 ml Q30M PRN IV Hypoglycemia 01/19/20 17:15 04/18/20 17:14 Enalaprilat (Vasotec) 2.5 mg Q4H PRN IV sbp more than 200 01/19/20 17:15 02/18/20 17:14 Furosemide (Lasix) 40 mg DAILYPRN IV 01/20/20 19:00 02/19/20 18:59 Gabapentin (Neurontin) 100 mg THREE TIMES A DAY ORAL 01/19/20 18:00 02/18/20 17:59 01/22/20 17:57 Hydralazine HCl (Apresoline) 20 mg Q4H PRN IV sbp more than 160 01/19/20 17:15 04/18/20 17:14 01/22/20 23:20 Insulin Aspart (NovoLOG) BEFORE MEALS AND HS SUBQ 01/19/20 21:00 04/18/20 20:59 01/22/20 20:43 Labetalol HCl (Normodyne) 20 mg Q1H PRN IV sbo more than 180 01/19/20 17:15 02/18/20 17:14 Ondansetron HCl (Zofran) 4 mg Q6H PRN IVP Nausea & Vomiting 01/19/20 17:15 02/18/20 17:14 Polyethylene Glycol (Miralax) 17 gm DAILYPRN PRN ORAL Constipation 01/19/20 17:15 02/18/20 17:14 01/21/20 08:48 Potassium Chloride (K-Dur) 40 meq DAILY ORAL 01/21/20 14:15 01/23/20 14:14 01/22/20 08:55 Sitagliptin Phosphate (Januvia) 50 mg ACBREAKFAST ORAL 01/20/20 07:00 02/19/20 06:59 01/23/20 06:23 Temazepam (Restoril) 15 mg HSPRN PRN ORAL Insomnia 01/19/20 17:15 01/26/20 17:14 01/22/20 22:36 Maurizio Flores MD Jan 23, 2020 06:32
[2020-01-23 06:48] LABS: BASOPHILS % (AUTO) 0.7 % (0.0-2.0); EOSINOPHILS % (AUTO) 1.8 % (0.0-3.0); HEMATOCRIT 30.9 % (37.0-47.0); HEMOGLOBIN 9.6 G/DL (12.0-16.0); LYMPHOCYTES % (AUTO) 11.3 % (20.0-45.0); MEAN CORPUSCULAR VOLUME 97 FL (80-99); MONOCYTES % (AUTO) 9.8 % (1.0-10.0); NEUTROPHILS % (AUTO) 76.4 % (45.0-75.0); PLATELET COUNT 193 K/UL (150-450); RED BLOOD COUNT 3.19 M/UL (4.20-5.40); RED CELL DISTRIBUTION WIDTH 20.8 % (11.6-14.8); WHITE BLOOD COUNT 4.7 K/UL (4.8-10.8)
[2020-01-23 07:23] LABS: ANION GAP 5 mmol/L (5-15); BLOOD UREA NITROGEN 22 mg/dL (7-18); CALCIUM 8.6 MG/DL (8.5-10.1); CARBON DIOXIDE 32 MMOL/L (21-32); CHLORIDE 103 MMOL/L (98-107); CREATININE 1.4 MG/DL (0.55-1.30); POTASSIUM 4.1 MMOL/L (3.5-5.1); SODIUM 140 MMOL/L (136-145)
[2020-01-23 08:00] VITALS: BP 132/49
[2020-01-23] MEDS: Eliquis 5mg tablet ORAL SCH ×2 (08:22→17:26)
[2020-01-23] MEDS: Carvedilol 6.25mg Tab ORAL SCH ×2 (08:29→21:26)
--- NOTE | 2020-01-23 11:58 | Pulmonology Progress Note ---
Subjective ROS Limited/Unobtainable: No Interval Events: daughter at the bed site Constitutional: Reports: no symptoms HEENT: Repors: no symptoms Allergies: Coded Allergies: No Known Allergies (Unverified , 12/19/14) patient states no known drug allergy All Systems: reviewed and negative except above Objective Last 24 Hour Vital Signs Date Time Temp Pulse Resp B/P (MAP) Pulse Ox O2 Delivery O2 Flow Rate FiO2 01/23/20 11:01 Room Air 01/23/20 11:00 69 20 100 Room Air 21 01/23/20 08:29 76 132/49 01/23/20 08:00 97.9 76 18 132/49 (76) 97 01/23/20 04:00 64 01/23/20 04:00 97.6 71 20 147/61 (89) 95 01/23/20 00:00 97.9 61 20 168/52 (90) 94 01/23/20 00:00 81 01/22/20 23:20 168/52 01/22/20 21:00 Room Air 01/22/20 20:42 79 162/69 01/22/20 20:25 77 18 96 Room Air 21 01/22/20 20:00 97.9 79 17 162/69 (100) 96 01/22/20 20:00 63 01/22/20 16:00 97.5 65 18 128/48 (74) 99 01/22/20 16:00 58 01/22/20 12:00 69 01/22/20 12:00 99.3 58 20 100/44 (62) 98 Intake and Output 01/22/20 01/23/20 19:00 07:00 Intake Total 360 ml 120 ml Balance 360 ml 120 ml Intake Oral 360 ml 120 ml # Voids 2 2 # Bowel Movements 1 1 General Appearance: WD/WN HEENT: normocephalic, atraumatic Respiratory: chest wall non-tender, lungs clear Cardiovascular: normal peripheral pulses, normal rate Abdomen: normal bowel sounds, soft, non tender Extremities: no cyanosis, no clubbing Skin: no rash Neurologic: it security architect II-XII grossly normal Laboratory Tests 01/22/20 11:58: POC Whole Blood Glucose 177H 01/22/20 20:40: POC Whole Blood Glucose 146H 01/23/20 05:57: POC Whole Blood Glucose 133H 01/23/20 06:20: White Blood Count 4.7L, Red Blood Count 3.19L, Hemoglobin 9.6L, Hematocrit 30.9L , Mean Corpuscular Volume 97, Mean Corpuscular Hemoglobin 30.1, Mean Corpuscular Hemoglobin Concent 31.1L, Red Cell Distribution Width 20.8H, Platelet Count 193, Mean Platelet Volume 6.8, Neutrophils (%) (Auto) 76.4H, Lymphocytes (%) (Auto) 11.3L, Monocytes (%) (Auto) 9.8, Eosinophils (%) (Auto) 1.8, Basophils (%) (Auto) 0.7, Sodium Level 140, Potassium Level 4.1, Chloride Level 103, Carbon Dioxide Level 32, Anion Gap 5, Blood Urea Nitrogen 22H, Creatinine 1.4H, Estimat Glomerular Filtration Rate 43.4, Glucose Level 135H, Calcium Level 8.6 Current Medications Medications (Trade) Dose Ordered Sig/Farhad Route PRN Reason Start Time Stop Time Status Last Admin Dose Admin Acetaminophen (Tylenol) 650 mg Q4H PRN ORAL Fever 01/19/20 17:15 02/18/20 17:14 01/23/20 08:21 Albuterol/ Ipratropium (Albuterol/ Ipratropium) 3 ml Q4H PRN HHN Shortness of Breath 01/19/20 17:15 01/24/20 17:14 Apixaban (Eliquis) 5 mg BID ORAL 01/20/20 20:30 04/19/20 20:29 01/23/20 08:22 Artificial Tears (Akwa-Tears) 1 drop Q12HR BOTH EYES 01/20/20 21:00 02/19/20 20:59 01/23/20 08:29 Carvedilol (Coreg) 6.25 mg EVERY 12 HOURS ORAL 01/19/20 21:00 02/18/20 20:59 01/23/20 08:29 Dextrose (Dextrose 50%) 25 ml Q30M PRN IV Hypoglycemia 01/19/20 17:15 04/18/20 17:14 Dextrose (Dextrose 50%) 50 ml Q30M PRN IV Hypoglycemia 01/19/20 17:15 04/18/20 17:14 Enalaprilat (Vasotec) 2.5 mg Q4H PRN IV sbp more than 200 01/19/20 17:15 02/18/20 17:14 Furosemide (Lasix) 40 mg DAILYPRN IV 01/20/20 19:00 02/19/20 18:59 Gabapentin (Neurontin) 100 mg THREE TIMES A DAY ORAL 01/19/20 18:00 02/18/20 17:59 01/23/20 08:22 Hydralazine HCl (Apresoline) 20 mg Q4H PRN IV sbp more than 160 01/19/20 17:15 04/18/20 17:14 01/22/20 23:20 Insulin Aspart (NovoLOG) BEFORE MEALS AND HS SUBQ 01/19/20 21:00 04/18/20 20:59 01/22/20 20:43 Labetalol HCl (Normodyne) 20 mg Q1H PRN IV sbo more than 180 01/19/20 17:15 02/18/20 17:14 Ondansetron HCl (Zofran) 4 mg Q6H PRN IVP Nausea & Vomiting 01/19/20 17:15 02/18/20 17:14 Polyethylene Glycol (Miralax) 17 gm DAILYPRN PRN ORAL Constipation 01/19/20 17:15 02/18/20 17:14 01/21/20 08:48 Potassium Chloride (K-Dur) 40 meq DAILY ORAL 01/21/20 14:15 01/23/20 14:14 01/23/20 08:21 Sitagliptin Phosphate (Januvia) 50 mg ACBREAKFAST ORAL 01/20/20 07:00 02/19/20 06:59 01/23/20 06:23 Temazepam (Restoril) 15 mg HSPRN PRN ORAL Insomnia 01/19/20 17:15 01/26/20 17:14 01/22/20 22:36 Assessment/Plan Problems: (1) ATN (acute tubular necrosis) (2) Acute respiratory failure (3) Chemotherapy adverse reaction (4) Interstitial edema (5) UTI (lower urinary tract infection) (6) Atrial fibrillation (7) DM (diabetes mellitus) (8) HTN (hypertension) Assessment/Plan renal consult called. Renal failure might be secondary to contrast use for CAT of lung doing better v/q intermediate rate controlled sliding scale diabetic diet\ pulmonary hypertension is chronic already on anticoagulation Inga Matias MD Jan 23, 2020 11:58
[2020-01-23 12:00] VITALS: BP 128/40
[2020-01-23 12:45] LABS: CREATINE KINASE 22 U/L (26-308)
[2020-01-23] MEDS: Miralax 17gm pkt ORAL PRN (13:08)
--- NOTE | 2020-01-23 13:39 | Consultation ---
Consult Note Consult Note I am asked to evaluate the patient at the request of Dr. Dubon for elevated serum creatinine Day 4 hospitalization at [facility] 84-year-old female history of cancer history of diabetes, hypertension atrial fibrillation, presents with acute shortness of breath after receiving chemotherapy today, shortness of breath is aggravated by chemotherapy she feels chest tightness no known alleviating factors severity is moderate, constant, patient denies any fevers or chills Allergies: No Known Allergies (Unverified , 12/19/14) COVID-19 Screening Contact w/high risk pt: No Experienced COVID-19 symptoms?: Yes COVID-19 Testing performed QUITLINE COUNSELOR: No Past history Hx Cardiac Problems: Yes - A fib, anemia Hx Hypertension: Yes Hx Diabetes: Yes Hx Cancer: Yes - bone Multiple myeloma UTI Moderate to severe mitral and tricuspid regurgitation On anticoagulation therapy Pulmonary hypertension CHF History of mechanical fall and multiple pelvic fractures HYSICAL EXAMINATION: GENERAL: An elderly female, in no respiratory distress. NECK: Supple. No jugular venous distention. LUNGS: Relatively clear to auscultation, percussion. CARDIAC: Irregularly irregular, not tachycardic. No heaves or thrills or gallops. There is a holosystolic regurgitant murmur noted. ABDOMEN: Soft, nontender. Positive bowel sounds. EXTREMITIES: 1 to 2+ edema of the lower extremities bilaterally above the ankle. LABORATORY VALUES: White count of 12.6, hemoglobin of 10.5, and platelet count of 272. Her cardiac enzymes, troponin of 0.107, 0.096, 0.092, relatively flat. Her proBNP is 2296. Her chemistries, sodium was 138, potassium 3.9, chloride 99, bicarb 32, BUN of 24, creatinine 1.5, and glucose of 186. Lactic acid of 1.2 and alkaline phosphatase of 259. A CT pulmonary angiogram was performed in the emergency room and showed no evidence of central or transsegmental pulmonary embolism,. Small pulmonary emboli at this level cannot be excluded. Moderate to severe cardiomegaly with evidence of right ventricular systolic dysfunction, small right pleural effusion associated with atelectasis, compression fracture of the L1, and possible cirrhosis. A chest x-ray was performed today that showed no significant change with lung marcelo being clear bilaterally. Cardiomegaly unchanged. CP angles were clear. V/Q scan of the lungs was performed, showed limited evaluation, intermediate probability for pulmonary embolism, possibility of emphysematous changes and COPD. . Assessment/Plan Acute respiratory failure post chemotherapy for multiple myeloma Acute tubular necrosis Atrial fibrillation Congestive heart failure and tricuspid regurgitation Diabetes mellitus Hypertension History of multiple falls and pelvic with fractures Adjust blood pressure medication with proper parameters Monitor renal parameters Check urine analysis and urine for spot sodium Anemia work-up To blood pressure and blood sugar and check Avoid nephrotoxic's Per orders Patient had 2 previous admissions and 2 ER visits here at [facility]. I spent an additional 36 minutes on review of medical records including prior hospital records,consult notes, progress notes, procedures ,imaging labs, hemodynamics, and other clinical documentation. Over 35 min Ramez Wray MD Jan 23, 2020 13:39
[2020-01-23 14:13] LABS: CHOLESTEROL 148 MG/DL (< 200); HDL CHOLESTEROL 44 MG/DL (40-60); TRIGLYCERIDES 79 MG/DL (30-150)
[2020-01-23 14:19] LABS: ALANINE AMINOTRANSFERASE 18 U/L (12-78); ALBUMIN 3.1 G/DL (3.4-5.0); ALKALINE PHOSPHATASE 204 U/L (46-116); ASPARTATE AMINO TRANSFERASE 20 U/L (15-37); BILIRUBIN,DIRECT 0.3 MG/DL (0.0-0.3); BILIRUBIN,TOTAL 0.6 MG/DL (0.2-1.0); PHOSPHORUS 3.3 MG/DL (2.5-4.9)
[2020-01-23 14:24] LABS: FERRITIN 334 NG/ML (8-388); GAMMA GLUTAMYL TRANSPEPTIDASE 45 U/L (5-85)
[2020-01-23 14:38] LABS: % IRON SATURATION 30 % (15-50); IRON 58 ug/dL (50-175); TOTAL IRON BINDING CAPACITY 196 ug/dL (250-450)
[2020-01-23 16:00] VITALS: BP 166/50
[2020-01-23 17:52] LABS: APPEARANCE,URINE CLOUDY; BILIRUBIN, URINE NEGATIVE (NEGATIVE); GLUCOSE, URINE (UA) NEGATIVE (NEGATIVE); KETONES,URINE NEGATIVE (NEGATIVE); LEUKOCYTE ESTERASE ,URINE 3+ (NEGATIVE); NITRITE,URINE POSITIVE (NEGATIVE); PH,URINE 9 (4.5-8.0); PROTEIN,URINE 2+ (NEGATIVE); UROBILINOGEN,URINE 4 MG/DL (0.0-1.0)
[2020-01-23 17:55] LABS: COLOR,URINE YELLOW
--- NOTE | 2020-01-23 18:25 | Internal Med Progress Note ---
Subjective Date of Service: Jan 23, 2020 Physician Name Rafael Boykin Attending Physician Misael Dubon MD Current Medications Medications (Trade) Dose Ordered Sig/Farhad Route PRN Reason Start Time Stop Time Status Last Admin Dose Admin Acetaminophen (Tylenol) 650 mg Q4H PRN ORAL Fever 01/19/20 17:15 02/18/20 17:14 01/23/20 08:21 Albuterol/ Ipratropium (Albuterol/ Ipratropium) 3 ml Q4H PRN HHN Shortness of Breath 01/19/20 17:15 01/24/20 17:14 Apixaban (Eliquis) 5 mg BID ORAL 01/20/20 20:30 04/19/20 20:29 01/23/20 17:26 Artificial Tears (Akwa-Tears) 1 drop Q12HR BOTH EYES 01/20/20 21:00 02/19/20 20:59 01/23/20 08:29 Carvedilol (Coreg) 6.25 mg EVERY 12 HOURS ORAL 01/19/20 21:00 02/18/20 20:59 01/23/20 08:29 Dextrose (Dextrose 50%) 25 ml Q30M PRN IV Hypoglycemia 01/19/20 17:15 04/18/20 17:14 Dextrose (Dextrose 50%) 50 ml Q30M PRN IV Hypoglycemia 01/19/20 17:15 04/18/20 17:14 Furosemide (Lasix) 40 mg DAILYPRN IV 01/20/20 19:00 02/19/20 18:59 Gabapentin (Neurontin) 100 mg THREE TIMES A DAY ORAL 01/19/20 18:00 02/18/20 17:59 01/23/20 17:26 Hydralazine HCl (Apresoline) 10 mg Q4H PRN IV sbp more than 160 01/23/20 13:55 04/22/20 13:54 01/23/20 18:07 Insulin Aspart (NovoLOG) BEFORE MEALS AND HS SUBQ 01/19/20 21:00 04/18/20 20:59 01/23/20 12:59 Ondansetron HCl (Zofran) 4 mg Q6H PRN IVP Nausea & Vomiting 01/19/20 17:15 02/18/20 17:14 Polyethylene Glycol (Miralax) 17 gm DAILYPRN PRN ORAL Constipation 01/19/20 17:15 02/18/20 17:14 01/23/20 13:08 Sitagliptin Phosphate (Januvia) 50 mg ACBREAKFAST ORAL 01/20/20 07:00 02/19/20 06:59 01/23/20 06:23 Temazepam (Restoril) 15 mg HSPRN PRN ORAL Insomnia 01/19/20 17:15 01/26/20 17:14 01/22/20 22:36 Allergies: Coded Allergies: No Known Allergies (Unverified , 12/19/14) patient states no known drug allergy ROS Limited/Unobtainable: No Constitutional: Reports: no symptoms HEENT: Reports: no symptoms Cardiovascular: Reports: no symptoms Respiratory: Reports: shortness of breath Gastrointestinal/Abdominal: Reports: no symptoms Genitourinary: Reports: no symptoms Neurologic/Psychiatric: Reports: no symptoms Subjective 84 YO F with history of multiple myeloma, currently undergoing chemotherapy, admitted with shortness of breath. Now atrial fibrillation. Cover for Int Med- Dr Dubon Objective Last Vital Signs Date Time Temp Pulse Resp B/P (MAP) Pulse Ox O2 Delivery O2 Flow Rate FiO2 01/23/20 18:07 178/62 01/23/20 16:00 62 01/23/20 16:00 97.5 20 100 01/23/20 11:01 Room Air 01/23/20 11:00 21 01/19/20 17:24 2.0 Laboratory Tests Test 01/22/20 20:40 01/23/20 05:57 01/23/20 06:20 01/23/20 12:16 POC Whole Blood Glucose 146 MG/DL (74-106) H 133 MG/DL (74-106) H 187 MG/DL (74-106) H White Blood Count 4.7 K/UL (4.8-10.8) L Red Blood Count 3.19 M/UL (4.20-5.40) L Hemoglobin 9.6 G/DL (12.0-16.0) L Hematocrit 30.9 % (37.0-47.0) L Mean Corpuscular Volume 97 FL (80-99) Mean Corpuscular Hemoglobin 30.1 PG (27.0-31.0) Mean Corpuscular Hemoglobin Concent 31.1 G/DL (32.0-36.0) L Red Cell Distribution Width 20.8 % (11.6-14.8) H Platelet Count 193 K/UL (150-450) Mean Platelet Volume 6.8 FL (6.5-10.1) Neutrophils (%) (Auto) 76.4 % (45.0-75.0) H Lymphocytes (%) (Auto) 11.3 % (20.0-45.0) L Monocytes (%) (Auto) 9.8 % (1.0-10.0) Eosinophils (%) (Auto) 1.8 % (0.0-3.0) Basophils (%) (Auto) 0.7 % (0.0-2.0) Sodium Level 140 MMOL/L (136-145) Potassium Level 4.1 MMOL/L (3.5-5.1) Chloride Level 103 MMOL/L (98-107) Carbon Dioxide Level 32 MMOL/L (21-32) Anion Gap 5 mmol/L (5-15) Blood Urea Nitrogen 22 mg/dL (7-18) H Creatinine 1.4 MG/DL (0.55-1.30) H Estimat Glomerular Filtration Rate 43.4 mL/min (>60) Glucose Level 135 MG/DL (74-106) H Uric Acid 8.7 MG/DL (2.6-7.2) H Calcium Level 8.6 MG/DL (8.5-10.1) Phosphorus Level 3.3 MG/DL (2.5-4.9) Magnesium Level 2.0 MG/DL (1.8-2.4) Iron Level 58 ug/dL (50-175) Total Iron Binding Capacity 196 ug/dL (250-450) L Percent Iron Saturation 30 % (15-50) Unsaturated Iron Binding 138 ug/dL (112-346) Ferritin 334 NG/ML (8-388) Total Bilirubin 0.6 MG/DL (0.2-1.0) Direct Bilirubin 0.3 MG/DL (0.0-0.3) Gamma Glutamyl Transpeptidase 45 U/L (5-85) Aspartate Amino Transf (AST/SGOT) 20 U/L (15-37) Alanine Aminotransferase (ALT/SGPT) 18 U/L (12-78) Alkaline Phosphatase 204 U/L (46-116) H Total Creatine Kinase 22 U/L (26-308) L Total Protein 5.9 G/DL (6.4-8.2) L Albumin 3.1 G/DL (3.4-5.0) L Triglycerides Level 79 MG/DL (30-150) Cholesterol Level 148 MG/DL (< 200) LDL Cholesterol 87 mg/dL (<100) HDL Cholesterol 44 MG/DL (40-60) Cholesterol/HDL Ratio 3.4 (3.3-4.4) Vitamin B12 Level 740 PG/ML (193-986) Folate 15.3 NG/ML (8.6-58.9) Thyroid Stimulating Hormone (TSH) 1.659 uiU/mL (0.358-3.740) Test 01/23/20 16:10 01/23/20 17:25 Urine Color Yellow Urine Appearance Cloudy Urine pH 9 (4.5-8.0) Urine Specific [place] 1.010 (1.005-1.035) Urine Protein 2+ (NEGATIVE) H Urine Glucose (UA) Negative (NEGATIVE) Urine Ketones Negative (NEGATIVE) Urine Blood 1+ (NEGATIVE) H Urine Nitrite Positive (NEGATIVE) H Urine Bilirubin Negative (NEGATIVE) Urine Urobilinogen 4 MG/DL (0.0-1.0) H Urine Leukocyte Esterase 3+ (NEGATIVE) H Urine RBC 0-2 /HPF (0 - 2) Urine WBC 20-30 /HPF (0 - 2) H Urine Squamous Epithelial Cells Many /LPF (NONE/OCC) H Urine Bacteria Many /HPF (NONE) H Urine Random Sodium 27 mmol/L (20-110) POC Whole Blood Glucose Pending Intake and Output 01/22/20 01/23/20 19:00 07:00 Intake Total 360 ml 120 ml Balance 360 ml 120 ml Intake Oral 360 ml 120 ml # Voids 2 2 # Bowel Movements 1 1 Objective PHYSICAL EXAMINATION: GENERAL: The patient is a well-developed and well-nourished Greek-speaking female, in no apparent distress. HEENT: Eyes, pupils are equal and responsive to light and accommodation. Extraocular movements are intact. NECK: Supple without lymphadenopathy. CHEST: Lungs are clear to auscultation bilaterally without wheezes or rales. CARDIOVASCULAR: Regular rhythm and rate. S1, S2 normal without murmurs, rubs, or gallops. ABDOMEN: Soft, nontender, and nondistended. Positive bowel sounds. No evidence of hepatosplenomegaly. Currently, no rebound or guarding noted. EXTREMITIES: Negative for clubbing, cyanosis, or edema. RECTAL/GENITAL: Not performed. NEUROLOGIC: Cranial nerves II through XII are grossly intact without focal deficits. Motor strength is 5/5 bilaterally. Deep tendon reflexes are 2+ plantar. Assessment/Plan Assessment/Plan Assessment/Plan Assessment/Plan Assessment/Plan ASSESSMENT: This is an 84-year-old female with: 1. Shortness of breath. 2. persistent Atrial fibrillation. 3. Diabetes type 2. 4. Hypertension. 5. multiple myeloma. 6. Liver cirrhosis. 7. Congestive heart failure. 8. History of fall with pelvic fracture status post of ORIF TREATMENT: 1. Atrial fibrillation. A Cardiology consultation has been obtained with Dr. Chauncey Lynne. We will follow recommendations of Cardiology. The patient is currently on Eliquis. 2. Diabetes type 2. Endocrinology=Dr Flores Continue NovoLog sliding scale and januvia 3. Hypertension. Continue Coreg as above. Continue benazepril and diltiazem as above. 4. multiple myeloma under chemotherapy by Dr. Colvin 5. Congestive heart failure. As above, a Cardiology consultation has been obtained with Dr. Chauncey Lynne. 6. History of liver cirrhosis. 7. PT mobility 8. CODE STATUS: Full code 9. DVT prophylaxis: Eliquis 10. Rafael Boykin MD Jan 23, 2020 18:25
--- NOTE | 2020-01-23 19:02 | Cardiology Progress Note ---
Assessment/Plan Assessment/Plan 1.Permanent atrial fibrillation. 2.[id number] mitral regurgitation and tricuspid regurgitation. 3.History of multiple falls. 4.Recent diagnosis of multiple myeloma. 5.History of peripheral arterial embolism. 6.History of epidural hematoma 7. CHF sound ok on eliquis on coreg hr seem controlled lasix 40 mg po bid at home trop without peak or brittnee will consider out pt ischemia eval in future ok to dc home Subjective Cardiovascular: Denies: chest pain, lightheadedness, palpitations Respiratory: Denies: shortness of breath Gastrointestinal/Abdominal: Denies: abdominal pain Genitourinary: Denies: burning Objective Last 24 Hour Vital Signs Date Time Temp Pulse Resp B/P (MAP) Pulse Ox O2 Delivery O2 Flow Rate FiO2 01/23/20 18:07 178/62 01/23/20 16:00 62 01/23/20 16:00 97.5 73 20 166/50 (88) 100 01/23/20 12:00 62 01/23/20 12:00 97.5 63 20 128/40 (69) 100 01/23/20 11:01 Room Air 01/23/20 11:00 69 20 100 Room Air 21 01/23/20 08:29 76 132/49 01/23/20 08:00 97.9 76 18 132/49 (76) 97 01/23/20 08:00 73 01/23/20 04:00 64 01/23/20 04:00 97.6 71 20 147/61 (89) 95 01/23/20 00:00 97.9 61 20 168/52 (90) 94 01/23/20 00:00 81 01/22/20 23:20 168/52 01/22/20 21:00 Room Air 01/22/20 20:42 79 162/69 01/22/20 20:25 77 18 96 Room Air 21 01/22/20 20:00 97.9 79 17 162/69 (100) 96 01/22/20 20:00 63 General Appearance: no apparent distress, alert Neck: supple Cardiovascular: irregularly irregular Respiratory/Chest: lungs clear Abdomen: normal bowel sounds, non tender, soft Extremities: no swelling Intake and Output 01/22/20 01/23/20 19:00 07:00 Intake Total 360 ml 120 ml Balance 360 ml 120 ml Intake Oral 360 ml 120 ml # Voids 2 2 # Bowel Movements 1 1 Laboratory Tests Test 01/22/20 20:40 01/23/20 05:57 01/23/20 06:20 01/23/20 12:16 POC Whole Blood Glucose 146 MG/DL (74-106) H 133 MG/DL (74-106) H 187 MG/DL (74-106) H White Blood Count 4.7 K/UL (4.8-10.8) L Red Blood Count 3.19 M/UL (4.20-5.40) L Hemoglobin 9.6 G/DL (12.0-16.0) L Hematocrit 30.9 % (37.0-47.0) L Mean Corpuscular Volume 97 FL (80-99) Mean Corpuscular Hemoglobin 30.1 PG (27.0-31.0) Mean Corpuscular Hemoglobin Concent 31.1 G/DL (32.0-36.0) L Red Cell Distribution Width 20.8 % (11.6-14.8) H Platelet Count 193 K/UL (150-450) Mean Platelet Volume 6.8 FL (6.5-10.1) Neutrophils (%) (Auto) 76.4 % (45.0-75.0) H Lymphocytes (%) (Auto) 11.3 % (20.0-45.0) L Monocytes (%) (Auto) 9.8 % (1.0-10.0) Eosinophils (%) (Auto) 1.8 % (0.0-3.0) Basophils (%) (Auto) 0.7 % (0.0-2.0) Sodium Level 140 MMOL/L (136-145) Potassium Level 4.1 MMOL/L (3.5-5.1) Chloride Level 103 MMOL/L (98-107) Carbon Dioxide Level 32 MMOL/L (21-32) Anion Gap 5 mmol/L (5-15) Blood Urea Nitrogen 22 mg/dL (7-18) H Creatinine 1.4 MG/DL (0.55-1.30) H Estimat Glomerular Filtration Rate 43.4 mL/min (>60) Glucose Level 135 MG/DL (74-106) H Uric Acid 8.7 MG/DL (2.6-7.2) H Calcium Level 8.6 MG/DL (8.5-10.1) Phosphorus Level 3.3 MG/DL (2.5-4.9) Magnesium Level 2.0 MG/DL (1.8-2.4) Iron Level 58 ug/dL (50-175) Total Iron Binding Capacity 196 ug/dL (250-450) L Percent Iron Saturation 30 % (15-50) Unsaturated Iron Binding 138 ug/dL (112-346) Ferritin 334 NG/ML (8-388) Total Bilirubin 0.6 MG/DL (0.2-1.0) Direct Bilirubin 0.3 MG/DL (0.0-0.3) Gamma Glutamyl Transpeptidase 45 U/L (5-85) Aspartate Amino Transf (AST/SGOT) 20 U/L (15-37) Alanine Aminotransferase (ALT/SGPT) 18 U/L (12-78) Alkaline Phosphatase 204 U/L (46-116) H Total Creatine Kinase 22 U/L (26-308) L Total Protein 5.9 G/DL (6.4-8.2) L Albumin 3.1 G/DL (3.4-5.0) L Triglycerides Level 79 MG/DL (30-150) Cholesterol Level 148 MG/DL (< 200) LDL Cholesterol 87 mg/dL (<100) HDL Cholesterol 44 MG/DL (40-60) Cholesterol/HDL Ratio 3.4 (3.3-4.4) Vitamin B12 Level 740 PG/ML (193-986) Folate 15.3 NG/ML (8.6-58.9) Thyroid Stimulating Hormone (TSH) 1.659 uiU/mL (0.358-3.740) Test 01/23/20 16:10 01/23/20 17:25 Urine Color Yellow Urine Appearance Cloudy Urine pH 9 (4.5-8.0) Urine Specific [place] 1.010 (1.005-1.035) Urine Protein 2+ (NEGATIVE) H Urine Glucose (UA) Negative (NEGATIVE) Urine Ketones Negative (NEGATIVE) Urine Blood 1+ (NEGATIVE) H Urine Nitrite Positive (NEGATIVE) H Urine Bilirubin Negative (NEGATIVE) Urine Urobilinogen 4 MG/DL (0.0-1.0) H Urine Leukocyte Esterase 3+ (NEGATIVE) H Urine RBC 0-2 /HPF (0 - 2) Urine WBC 20-30 /HPF (0 - 2) H Urine Squamous Epithelial Cells Many /LPF (NONE/OCC) H Urine Bacteria Many /HPF (NONE) H Urine Random Sodium 27 mmol/L (20-110) POC Whole Blood Glucose Pending Chauncey Lynne MD Jan 23, 2020 19:02
[2020-01-23 19:12] VITALS: BP 153/56
[2020-01-23] MEDS ORDERED: Miralax 17gm pkt ORAL PRN (20:10)
[2020-01-23] MEDS ORDERED: Albuterol/Ipratropium 3ml neb HHN PRN (21:15)
[2020-01-24] VITALS (9 sets, daily range): BP systolic 121–180; BP diastolic 57–89
[2020-01-24 05:28] LABS: BASOPHILS % (AUTO) 0.7 % (0.0-2.0); EOSINOPHILS % (AUTO) 2.5 % (0.0-3.0); HEMATOCRIT 30.8 % (37.0-47.0); HEMOGLOBIN 9.6 G/DL (12.0-16.0); LYMPHOCYTES % (AUTO) 12.3 % (20.0-45.0); MEAN CORPUSCULAR VOLUME 97 FL (80-99); MONOCYTES % (AUTO) 12.3 % (1.0-10.0); NEUTROPHILS % (AUTO) 72.2 % (45.0-75.0); PLATELET COUNT 181 K/UL (150-450); RED BLOOD COUNT 3.18 M/UL (4.20-5.40); RED CELL DISTRIBUTION WIDTH 19.9 % (11.6-14.8); WHITE BLOOD COUNT 5.1 K/UL (4.8-10.8)
[2020-01-24 05:47] LABS: ANION GAP 5 mmol/L (5-15); BLOOD UREA NITROGEN 18 mg/dL (7-18); CALCIUM 8.4 MG/DL (8.5-10.1); CARBON DIOXIDE 30 MMOL/L (21-32); CHLORIDE 106 MMOL/L (98-107); CREATININE 1.5 MG/DL (0.55-1.30); POTASSIUM 4.5 MMOL/L (3.5-5.1); SODIUM 140 MMOL/L (136-145)
[2020-01-24] MEDS: NovoLOG Insulin Flexpen SUBQ SCH ×4 (05:58→21:00)
[2020-01-24] MEDS: sitaGLIPtin 50mg tab ORAL SCH (06:40)
--- NOTE | 2020-01-24 06:46 | General Progress Note ---
Assessment/Plan Problem List: (1) HTN (hypertension) ICD Codes: I10 - HTN (hypertension) SNOMED: 83039390 (2) DM (diabetes mellitus) ICD Codes: E11.9 - DM (diabetes mellitus) SNOMED: 15330243 (3) UTI (lower urinary tract infection) ICD Codes: N39.0 - Urinary tract infection, site not specified SNOMED: 4408519 (4) Atrial fibrillation ICD Codes: I48.91 - Atrial fibrillation SNOMED: 88423561 Assessment/Plan: continue Januvia 50 mg daily continue Novolog sliding scale ac / hs Subjective Allergies: Coded Allergies: No Known Allergies (Unverified , 12/19/14) patient states no known drug allergy All Systems: reviewed and negative except above Subjective events noted fair glycemic control without hypoglycemia Item Value Date Time Bedside Blood Glucose 124 mg/dl H 01/24/20 0558 Bedside Blood Glucose 150 mg/dl H 01/23/20 2134 Bedside Blood Glucose 114 mg/dl 01/23/20 1630 Bedside Blood Glucose 187 mg/dl H 01/23/20 1259 Bedside Blood Glucose 133 mg/dl H 01/23/20 0630 Objective Last 24 Hour Vital Signs Date Time Temp Pulse Resp B/P (MAP) Pulse Ox O2 Delivery O2 Flow Rate FiO2 01/24/20 04:00 98.2 92 18 157/89 (111) 97 01/24/20 00:00 98.4 77 18 121/88 (99) 98 01/23/20 21:26 77 121/88 01/23/20 21:00 Room Air 01/23/20 20:28 71 18 99 Room Air 21 01/23/20 20:00 74 01/23/20 19:12 68 153/56 (88) 01/23/20 18:07 178/62 01/23/20 16:00 62 01/23/20 16:00 97.5 73 20 166/50 (88) 100 01/23/20 12:00 62 01/23/20 12:00 97.5 63 20 128/40 (69) 100 01/23/20 11:01 Room Air 01/23/20 11:00 69 20 100 Room Air 21 01/23/20 08:29 76 132/49 01/23/20 08:00 97.9 76 18 132/49 (76) 97 01/23/20 08:00 73 Intake and Output 01/23/20 01/24/20 19:00 07:00 Intake Total 360 ml 120 ml Balance 360 ml 120 ml Intake Oral 360 ml 120 ml # Voids 3 3 Laboratory Tests 01/23/20 12:16: POC Whole Blood Glucose 187H 01/23/20 16:10: Urine Color Yellow, Urine Appearance Cloudy, Urine pH 9, Urine Specific [place] 1.010, Urine Protein 2+H, Urine Glucose (UA) Negative, Urine Ketones Negative, Urine Blood 1+H, Urine Nitrite PositiveH, Urine Bilirubin Negative, Urine Urobilinogen 4H, Urine Leukocyte Esterase 3+H, Urine RBC 0-2, Urine WBC 20-30H, Urine Squamous Epithelial Cells ManyH, Urine Bacteria ManyH, Urine Eosinophils None seen, Urine Random Creatinine [Pending], Urine Random Microalbumin [Pending ], Urine Random Sodium 27, Urine Microalbumin/Creatinine Ratio [Pending] 01/23/20 17:25: POC Whole Blood Glucose [Pending] 01/23/20 21:30: POC Whole Blood Glucose [Pending] 01/24/20 04:50: White Blood Count 5.1, Red Blood Count 3.18L, Hemoglobin 9.6L, Hematocrit 30.8L , Mean Corpuscular Volume 97, Mean Corpuscular Hemoglobin 30.2, Mean Corpuscular Hemoglobin Concent 31.1L, Red Cell Distribution Width 19.9H, Platelet Count 181, Mean Platelet Volume 6.6, Neutrophils (%) (Auto) 72.2, Lymphocytes (%) (Auto) 12.3L, Monocytes (%) (Auto) 12.3H, Eosinophils (%) (Auto ) 2.5, Basophils (%) (Auto) 0.7, Sodium Level 140, Potassium Level 4.5, Chloride Level 106, Carbon Dioxide Level 30, Anion Gap 5, Blood Urea Nitrogen 18 , Creatinine 1.5H, Estimat Glomerular Filtration Rate 40.0, Glucose Level 132H, Calcium Level 8.4L 01/24/20 05:36: POC Whole Blood Glucose 124H Height (Feet): 5 Height (Inches): 1.00 Weight (Pounds): 147 General Appearance: no apparent distress Neck: normal alignment Cardiovascular: normal rate Respiratory/Chest: lungs clear Abdomen: normal bowel sounds Pelvis: normal external exam Objective Current Medications Medications (Trade) Dose Ordered Sig/Farhad Route PRN Reason Start Time Stop Time Status Last Admin Dose Admin Acetaminophen (Tylenol) 650 mg Q4H PRN ORAL Fever 01/23/20 20:08 02/22/20 20:07 01/24/20 03:05 Albuterol/ Ipratropium (Albuterol/ Ipratropium) 3 ml Q4H PRN HHN Shortness of Breath 01/23/20 21:15 01/24/20 17:14 Apixaban (Eliquis) 5 mg BID ORAL 01/24/20 09:00 04/19/20 20:29 Artificial Tears (Akwa-Tears) 1 drop Q12HR BOTH EYES 01/23/20 21:00 02/19/20 20:59 01/23/20 21:29 Carvedilol (Coreg) 6.25 mg EVERY 12 HOURS ORAL 01/23/20 21:00 02/18/20 20:59 01/23/20 21:26 Dextrose (Dextrose 50%) 25 ml Q30M PRN IV Hypoglycemia 01/23/20 20:15 04/18/20 17:14 Dextrose (Dextrose 50%) 50 ml Q30M PRN IV Hypoglycemia 01/23/20 20:15 04/18/20 17:14 Furosemide (Lasix) 40 mg DAILY IV 01/24/20 09:00 02/23/20 08:59 Gabapentin (Neurontin) 100 mg THREE TIMES A DAY ORAL 01/24/20 09:00 02/18/20 17:59 Insulin Aspart (NovoLOG) BEFORE MEALS AND HS SUBQ 01/23/20 21:00 04/18/20 20:59 01/23/20 21:34 Ondansetron HCl (Zofran) 4 mg Q6H PRN IVP Nausea & Vomiting 01/23/20 20:10 02/22/20 20:09 Polyethylene Glycol (Miralax) 17 gm DAILYPRN PRN ORAL Constipation 01/23/20 20:10 02/22/20 20:09 Sitagliptin Phosphate (Januvia) 50 mg ACBREAKFAST ORAL 01/24/20 06:30 02/19/20 06:59 01/24/20 06:40 Temazepam (Restoril) 15 mg HSPRN PRN ORAL Insomnia 01/23/20 20:10 01/30/20 20:09 01/23/20 22:27 Maurizio Flores MD Jan 24, 2020 06:46
[2020-01-24] MEDS: Eliquis 5mg tablet ORAL SCH ×2 (08:36→16:56)
[2020-01-24] MEDS: Carvedilol 6.25mg Tab ORAL SCH ×2 (08:36→20:14)
--- NOTE | 2020-01-24 10:13 | Nephrology Progress Note ---
Assessment/Plan Problem List: (1) ATN (acute tubular necrosis) (2) Atrial fibrillation (3) HTN (hypertension) (4) DM (diabetes mellitus) (5) Acute respiratory failure (6) Chemotherapy adverse reaction Assessment: MM (7) CHF (congestive heart failure) Assessment: TR Assessment Acute respiratory failure post chemotherapy for multiple myeloma Acute tubular necrosis Atrial fibrillation Congestive heart failure and tricuspid regurgitation Diabetes mellitus Hypertension History of multiple falls and pelvic with fractures Plan Add allopurinol Adjust blood pressure medication with proper parameters Monitor renal parameters Check urine analysis and urine for spot sodium Anemia work-up To blood pressure and blood sugar and check Avoid nephrotoxic's Per orders Subjective ROS Limited/Unobtainable: No Constitutional: Reports: malaise, weakness Objective Objective Last 24 Hour Vital Signs Date Time Temp Pulse Resp B/P (MAP) Pulse Ox O2 Delivery O2 Flow Rate FiO2 01/24/20 09:57 71 156/67 (96) 01/24/20 09:00 Room Air 01/24/20 08:36 79 173/72 01/24/20 08:00 97.9 79 20 173/72 (105) 97 01/24/20 07:32 68 18 99 Room Air 21 01/24/20 04:00 98.2 92 18 157/89 (111) 97 01/24/20 00:00 98.4 77 18 121/88 (99) 98 01/23/20 21:26 77 121/88 01/23/20 21:00 Room Air 01/23/20 20:28 71 18 99 Room Air 21 01/23/20 20:00 74 01/23/20 19:12 68 153/56 (88) 01/23/20 18:07 178/62 01/23/20 16:00 62 01/23/20 16:00 97.5 73 20 166/50 (88) 100 01/23/20 12:00 62 01/23/20 12:00 97.5 63 20 128/40 (69) 100 01/23/20 11:01 Room Air 01/23/20 11:00 69 20 100 Room Air 21 Intake and Output 01/23/20 01/24/20 19:00 07:00 Intake Total 360 ml 120 ml Balance 360 ml 120 ml Intake Oral 360 ml 120 ml # Voids 3 3 Laboratory Tests 01/23/20 12:16: POC Whole Blood Glucose 187H 01/23/20 16:10: Urine Color Yellow, Urine Appearance Cloudy, Urine pH 9, Urine Specific [place] 1.010, Urine Protein 2+H, Urine Glucose (UA) Negative, Urine Ketones Negative, Urine Blood 1+H, Urine Nitrite PositiveH, Urine Bilirubin Negative, Urine Urobilinogen 4H, Urine Leukocyte Esterase 3+H, Urine RBC 0-2, Urine WBC 20-30H, Urine Squamous Epithelial Cells ManyH, Urine Bacteria ManyH, Urine Eosinophils None seen, Urine Random Creatinine [Pending], Urine Random Microalbumin [Pending ], Urine Random Sodium 27, Urine Microalbumin/Creatinine Ratio [Pending] 01/23/20 17:25: POC Whole Blood Glucose [Pending] 01/23/20 21:30: POC Whole Blood Glucose [Pending] 01/24/20 04:50: White Blood Count 5.1, Red Blood Count 3.18L, Hemoglobin 9.6L, Hematocrit 30.8L , Mean Corpuscular Volume 97, Mean Corpuscular Hemoglobin 30.2, Mean Corpuscular Hemoglobin Concent 31.1L, Red Cell Distribution Width 19.9H, Platelet Count 181, Mean Platelet Volume 6.6, Neutrophils (%) (Auto) 72.2, Lymphocytes (%) (Auto) 12.3L, Monocytes (%) (Auto) 12.3H, Eosinophils (%) (Auto ) 2.5, Basophils (%) (Auto) 0.7, Sodium Level 140, Potassium Level 4.5, Chloride Level 106, Carbon Dioxide Level 30, Anion Gap 5, Blood Urea Nitrogen 18 , Creatinine 1.5H, Estimat Glomerular Filtration Rate 40.0, Glucose Level 132H, Calcium Level 8.4L 01/24/20 05:36: POC Whole Blood Glucose 124H Height (Feet): 5 Height (Inches): 1.00 Weight (Pounds): 147 General Appearance: no apparent distress, lethargic Cardiovascular: normal rate Respiratory/Chest: decreased breath sounds Abdomen: distended Ramez Wray MD Jan 24, 2020 10:13
--- NOTE | 2020-01-24 12:24 | Pulmonology Progress Note ---
Subjective ROS Limited/Unobtainable: No Interval Events: daughter at the bed site Constitutional: Reports: no symptoms HEENT: Repors: no symptoms Allergies: Coded Allergies: No Known Allergies (Unverified , 12/19/14) patient states no known drug allergy All Systems: reviewed and negative except above Objective Last 24 Hour Vital Signs Date Time Temp Pulse Resp B/P (MAP) Pulse Ox O2 Delivery O2 Flow Rate FiO2 01/24/20 09:57 71 156/67 (96) 01/24/20 09:00 Room Air 01/24/20 08:36 79 173/72 01/24/20 08:00 97.9 79 20 173/72 (105) 97 01/24/20 07:32 68 18 99 Room Air 21 01/24/20 04:00 98.2 92 18 157/89 (111) 97 01/24/20 00:00 98.4 77 18 121/88 (99) 98 01/23/20 21:26 77 121/88 01/23/20 21:00 Room Air 01/23/20 20:28 71 18 99 Room Air 21 01/23/20 20:00 74 01/23/20 19:12 68 153/56 (88) 01/23/20 18:07 178/62 01/23/20 16:00 62 01/23/20 16:00 97.5 73 20 166/50 (88) 100 Intake and Output 01/23/20 01/24/20 19:00 07:00 Intake Total 360 ml 120 ml Balance 360 ml 120 ml Intake Oral 360 ml 120 ml # Voids 3 3 General Appearance: WD/WN HEENT: normocephalic, atraumatic Respiratory: chest wall non-tender, lungs clear, normal breath sounds, no respiratory distress, no accessory muscle use Cardiovascular: normal peripheral pulses, normal rate Abdomen: normal bowel sounds, soft, non tender Extremities: no cyanosis, no clubbing Skin: no rash 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 Microbiology Date/Time Source Procedure Growth Status 01/23/20 16:10 Urine,Clean Catch Urine Culture - Preliminary NO GROWTH Resulted Laboratory Tests 01/23/20 16:10: Urine Color Yellow, Urine Appearance Cloudy, Urine pH 9, Urine Specific [place] 1.010, Urine Protein 2+H, Urine Glucose (UA) Negative, Urine Ketones Negative, Urine Blood 1+H, Urine Nitrite PositiveH, Urine Bilirubin Negative, Urine Urobilinogen 4H, Urine Leukocyte Esterase 3+H, Urine RBC 0-2, Urine WBC 20-30H, Urine Squamous Epithelial Cells ManyH, Urine Bacteria ManyH, Urine Eosinophils None seen, Urine Random Creatinine [Pending], Urine Random Microalbumin [Pending ], Urine Random Sodium 27, Urine Microalbumin/Creatinine Ratio [Pending] 01/23/20 17:25: POC Whole Blood Glucose [Pending] 01/23/20 21:30: POC Whole Blood Glucose [Pending] 01/24/20 04:50: White Blood Count 5.1, Red Blood Count 3.18L, Hemoglobin 9.6L, Hematocrit 30.8L , Mean Corpuscular Volume 97, Mean Corpuscular Hemoglobin 30.2, Mean Corpuscular Hemoglobin Concent 31.1L, Red Cell Distribution Width 19.9H, Platelet Count 181, Mean Platelet Volume 6.6, Neutrophils (%) (Auto) 72.2, Lymphocytes (%) (Auto) 12.3L, Monocytes (%) (Auto) 12.3H, Eosinophils (%) (Auto ) 2.5, Basophils (%) (Auto) 0.7, Sodium Level 140, Potassium Level 4.5, Chloride Level 106, Carbon Dioxide Level 30, Anion Gap 5, Blood Urea Nitrogen 18 , Creatinine 1.5H, Estimat Glomerular Filtration Rate 40.0, Glucose Level 132H, Calcium Level 8.4L 01/24/20 05:36: POC Whole Blood Glucose 124H 01/24/20 11:38: POC Whole Blood Glucose 139H Current Medications Medications (Trade) Dose Ordered Sig/Farhad Route PRN Reason Start Time Stop Time Status Last Admin Dose Admin Acetaminophen (Tylenol) 650 mg Q4H PRN ORAL Fever 01/23/20 20:08 02/22/20 20:07 01/24/20 03:05 Acetaminophen (Tylenol) 650 mg Q4H PRN ORAL Mild Pain (Pain Scale 1-3) 01/24/20 12:00 02/23/20 11:59 Albuterol/ Ipratropium (Albuterol/ Ipratropium) 3 ml Q4H PRN HHN Shortness of Breath 01/23/20 21:15 01/24/20 17:14 Allopurinol (allopurinoL) 300 mg DAILY ORAL 01/24/20 10:15 02/23/20 10:14 Apixaban (Eliquis) 5 mg BID ORAL 01/24/20 09:00 04/19/20 20:29 01/24/20 08:36 Artificial Tears (Akwa-Tears) 1 drop Q12HR BOTH EYES 01/23/20 21:00 02/19/20 20:59 01/24/20 08:38 Carvedilol (Coreg) 6.25 mg EVERY 12 HOURS ORAL 01/23/20 21:00 02/18/20 20:59 01/24/20 08:36 Dextrose (Dextrose 50%) 25 ml Q30M PRN IV Hypoglycemia 01/23/20 20:15 04/18/20 17:14 Dextrose (Dextrose 50%) 50 ml Q30M PRN IV Hypoglycemia 01/23/20 20:15 04/18/20 17:14 Furosemide (Lasix) 40 mg DAILY IV 01/24/20 09:00 02/23/20 08:59 01/24/20 08:36 Gabapentin (Neurontin) 100 mg THREE TIMES A DAY ORAL 01/24/20 09:00 02/18/20 17:59 01/24/20 08:36 Insulin Aspart (NovoLOG) BEFORE MEALS AND HS SUBQ 01/23/20 21:00 04/18/20 20:59 01/23/20 21:34 Ondansetron HCl (Zofran) 4 mg Q6H PRN IVP Nausea & Vomiting 01/23/20 20:10 02/22/20 20:09 Polyethylene Glycol (Miralax) 17 gm DAILYPRN PRN ORAL Constipation 01/23/20 20:10 02/22/20 20:09 Sitagliptin Phosphate (Januvia) 50 mg ACBREAKFAST ORAL 01/24/20 06:30 02/19/20 06:59 01/24/20 06:40 Temazepam (Restoril) 15 mg HSPRN PRN ORAL Insomnia 01/23/20 20:10 01/30/20 20:09 01/23/20 22:27 Assessment/Plan Problems: (1) ATN (acute tubular necrosis) (2) Acute respiratory failure (3) Chemotherapy adverse reaction (4) Interstitial edema (5) UTI (lower urinary tract infection) (6) Atrial fibrillation (7) DM (diabetes mellitus) (8) HTN (hypertension) Assessment/Plan renal consult called appreciated. Allopurinol was added Renal failure might be secondary to contrast use for CAT of lung doing better v/q intermediate rate controlled sliding scale diabetic diet\ pulmonary hypertension is chronic already on anticoagulation Inga Matias MD Jan 24, 2020 12:24
--- NOTE | 2020-01-24 17:14 | Internal Med Progress Note ---
Subjective Date of Service: Jan 24, 2020 Physician Name Rafael Boykin Attending Physician Misael Dubon MD Current Medications Medications (Trade) Dose Ordered Sig/Farhad Route PRN Reason Start Time Stop Time Status Last Admin Dose Admin Acetaminophen (Tylenol) 650 mg Q4H PRN ORAL Fever 01/23/20 20:08 02/22/20 20:07 01/24/20 03:05 Acetaminophen (Tylenol) 650 mg Q4H PRN ORAL Mild Pain (Pain Scale 1-3) 01/24/20 12:00 02/23/20 11:59 01/24/20 16:57 Albuterol/ Ipratropium (Albuterol/ Ipratropium) 3 ml Q4H PRN HHN Shortness of Breath 01/23/20 21:15 01/24/20 17:14 Allopurinol (allopurinoL) 300 mg DAILY ORAL 01/24/20 10:15 02/23/20 10:14 01/24/20 12:39 Amlodipine Besylate (Norvasc) 5 mg DAILY ORAL 01/26/20 09:00 02/25/20 08:59 Amlodipine Besylate (Norvasc) 5 mg ONCE ORAL 01/24/20 16:00 01/24/20 18:00 01/24/20 16:32 Apixaban (Eliquis) 5 mg BID ORAL 01/24/20 09:00 04/19/20 20:29 01/24/20 16:56 Artificial Tears (Akwa-Tears) 1 drop Q12HR BOTH EYES 01/23/20 21:00 02/19/20 20:59 01/24/20 08:38 Carvedilol (Coreg) 6.25 mg EVERY 12 HOURS ORAL 01/23/20 21:00 02/18/20 20:59 01/24/20 08:36 Dextrose (Dextrose 50%) 25 ml Q30M PRN IV Hypoglycemia 01/23/20 20:15 04/18/20 17:14 Dextrose (Dextrose 50%) 50 ml Q30M PRN IV Hypoglycemia 01/23/20 20:15 04/18/20 17:14 Gabapentin (Neurontin) 100 mg THREE TIMES A DAY ORAL 01/24/20 09:00 02/18/20 17:59 01/24/20 16:56 Insulin Aspart (NovoLOG) BEFORE MEALS AND HS SUBQ 01/23/20 21:00 04/18/20 20:59 01/24/20 16:37 Ondansetron HCl (Zofran) 4 mg Q6H PRN IVP Nausea & Vomiting 01/23/20 20:10 02/22/20 20:09 Polyethylene Glycol (Miralax) 17 gm DAILYPRN PRN ORAL Constipation 01/23/20 20:10 02/22/20 20:09 Sitagliptin Phosphate (Januvia) 50 mg ACBREAKFAST ORAL 01/24/20 06:30 02/19/20 06:59 01/24/20 06:40 Temazepam (Restoril) 15 mg HSPRN PRN ORAL Insomnia 01/23/20 20:10 01/30/20 20:09 01/23/20 22:27 Torsemide (Demadex) 20 mg DAILY ORAL 01/26/20 09:00 02/25/20 08:59 Allergies: Coded Allergies: No Known Allergies (Unverified , 12/19/14) patient states no known drug allergy ROS Limited/Unobtainable: No Constitutional: Reports: no symptoms HEENT: Reports: no symptoms Cardiovascular: Reports: no symptoms Respiratory: Reports: no symptoms Gastrointestinal/Abdominal: Reports: no symptoms Genitourinary: Reports: no symptoms Neurologic/Psychiatric: Reports: no symptoms Subjective 84 YO F with history of multiple myeloma, currently undergoing chemotherapy, admitted with shortness of breath. Now atrial fibrillation. Cover for Int Sergio- Dr Dubon Objective Last Vital Signs Date Time Temp Pulse Resp B/P (MAP) Pulse Ox O2 Delivery O2 Flow Rate FiO2 01/24/20 16:32 64 180/77 01/24/20 16:00 98.0 20 97 01/24/20 09:00 Room Air 01/24/20 07:32 21 01/19/20 17:24 2.0 Laboratory Tests Test 01/23/20 17:25 01/23/20 21:30 01/24/20 04:50 01/24/20 05:36 POC Whole Blood Glucose Pending Pending 124 MG/DL (74-106) H White Blood Count 5.1 K/UL (4.8-10.8) Red Blood Count 3.18 M/UL (4.20-5.40) L Hemoglobin 9.6 G/DL (12.0-16.0) L Hematocrit 30.8 % (37.0-47.0) L Mean Corpuscular Volume 97 FL (80-99) Mean Corpuscular Hemoglobin 30.2 PG (27.0-31.0) Mean Corpuscular Hemoglobin Concent 31.1 G/DL (32.0-36.0) L Red Cell Distribution Width 19.9 % (11.6-14.8) H Platelet Count 181 K/UL (150-450) Mean Platelet Volume 6.6 FL (6.5-10.1) Neutrophils (%) (Auto) 72.2 % (45.0-75.0) Lymphocytes (%) (Auto) 12.3 % (20.0-45.0) L Monocytes (%) (Auto) 12.3 % (1.0-10.0) H Eosinophils (%) (Auto) 2.5 % (0.0-3.0) Basophils (%) (Auto) 0.7 % (0.0-2.0) Sodium Level 140 MMOL/L (136-145) Potassium Level 4.5 MMOL/L (3.5-5.1) Chloride Level 106 MMOL/L (98-107) Carbon Dioxide Level 30 MMOL/L (21-32) Anion Gap 5 mmol/L (5-15) Blood Urea Nitrogen 18 mg/dL (7-18) Creatinine 1.5 MG/DL (0.55-1.30) H Estimat Glomerular Filtration Rate 40.0 mL/min (>60) Glucose Level 132 MG/DL (74-106) H Calcium Level 8.4 MG/DL (8.5-10.1) L Test 01/24/20 11:38 01/24/20 16:01 POC Whole Blood Glucose 139 MG/DL (74-106) H 142 MG/DL (74-106) H Microbiology Date/Time Source Procedure Growth Status 01/23/20 16:10 Urine,Clean Catch Urine Culture - Preliminary NO GROWTH Resulted Intake and Output 01/23/20 01/24/20 19:00 07:00 Intake Total 360 ml 120 ml Balance 360 ml 120 ml Intake Oral 360 ml 120 ml # Voids 3 3 Objective PHYSICAL EXAMINATION: GENERAL: The patient is a well-developed and well-nourished Korean-speaking female, in no apparent distress. HEENT: Eyes, pupils are equal and responsive to light and accommodation. Extraocular movements are intact. NECK: Supple without lymphadenopathy. CHEST: Lungs are clear to auscultation bilaterally without wheezes or rales. CARDIOVASCULAR: Regular rhythm and rate. S1, S2 normal without murmurs, rubs, or gallops. ABDOMEN: Soft, nontender, and nondistended. Positive bowel sounds. No evidence of hepatosplenomegaly. Currently, no rebound or guarding noted. EXTREMITIES: Negative for clubbing, cyanosis, or edema. RECTAL/GENITAL: Not performed. NEUROLOGIC: Cranial nerves II through XII are grossly intact without focal deficits. Motor strength is 5/5 bilaterally. Deep tendon reflexes are 2+ plantar. Assessment/Plan Assessment/Plan Assessment/Plan Assessment/Plan Assessment/Plan ASSESSMENT: This is an 84-year-old female with: 1. Shortness of breath. 2. persistent Atrial fibrillation. 3. Diabetes type 2. 4. Hypertension. 5. multiple myeloma. 6. Liver cirrhosis. 7. Congestive heart failure. 8. History of fall with pelvic fracture status post of ORIF TREATMENT: 1. Atrial fibrillation. A Cardiology consultation has been obtained with Dr. Chauncey Lynne. We will follow recommendations of Cardiology. The patient is currently on Eliquis. 2. Diabetes type 2. Endocrinology=Dr Flores Continue NovoLog sliding scale and januvia 3. Hypertension. Continue Coreg as above. Continue benazepril and diltiazem as above. 4. multiple myeloma under chemotherapy by Dr. Colvin 5. Congestive heart failure. As above, a Cardiology consultation has been obtained with Dr. Chauncey Lynne. 6. History of liver cirrhosis. 7. PT mobility 8. CODE STATUS: Full code 9. DVT prophylaxis: Rafael Redmond MD Jan 24, 2020 17:14
[2020-01-25] VITALS: BP 116/85
[2020-01-25 05:40] VITALS: BP 163/75
[2020-01-25] MEDS: NovoLOG Insulin Flexpen SUBQ SCH ×2 (06:01→11:28)
--- NOTE | 2020-01-25 06:25 | General Progress Note ---
Assessment/Plan Problem List: (1) HTN (hypertension) ICD Codes: I10 - HTN (hypertension) SNOMED: 35789241 (2) DM (diabetes mellitus) ICD Codes: E11.9 - DM (diabetes mellitus) SNOMED: 59931786 (3) UTI (lower urinary tract infection) ICD Codes: N39.0 - Urinary tract infection, site not specified SNOMED: 0115489 (4) Atrial fibrillation ICD Codes: I48.91 - Atrial fibrillation SNOMED: 61434161 Assessment/Plan: diabetes well controlled on Januvia 50 mg daily continue Novolog sliding scale ac / hs no need for insulin after discharge I sign off Subjective Allergies: Coded Allergies: No Known Allergies (Unverified , 12/19/14) patient states no known drug allergy All Systems: reviewed and negative except above Subjective events noted fair glycemic control without hypoglycemia Item Value Date Time Bedside Blood Glucose 121 mg/dl H 01/25/20 0601 Bedside Blood Glucose 116 mg/dl 01/24/20 2103 Bedside Blood Glucose 142 mg/dl H 01/24/20 1637 Bedside Blood Glucose 139 mg/dl H 01/24/20 1150 Bedside Blood Glucose 124 mg/dl H 01/24/20 0558 Objective Last 24 Hour Vital Signs Date Time Temp Pulse Resp B/P (MAP) Pulse Ox O2 Delivery O2 Flow Rate FiO2 01/25/20 05:40 97.9 76 163/75 (104) 01/25/20 00:00 98.0 77 20 116/85 (95) 99 01/24/20 22:00 77 123/68 (86) 01/24/20 21:00 Room Air 01/24/20 20:14 67 174/62 01/24/20 20:00 98.0 67 20 174/62 (99) 97 01/24/20 18:56 72 18 99 Room Air 21 01/24/20 17:51 82 159/57 (91) 01/24/20 16:32 64 180/77 01/24/20 16:00 98.0 64 20 180/77 (111) 97 01/24/20 12:00 97.6 69 18 142/79 (100) 98 01/24/20 09:57 71 156/67 (96) 01/24/20 09:00 Room Air 01/24/20 08:36 79 173/72 01/24/20 08:00 97.9 79 20 173/72 (105) 97 01/24/20 07:32 68 18 99 Room Air 21 Intake and Output 01/24/20 01/25/20 19:00 07:00 Intake Total 300 ml 120 ml Balance 300 ml 120 ml Intake Oral 300 ml 120 ml # Voids 5 4 # Bowel Movements 1 Laboratory Tests 01/24/20 11:38: POC Whole Blood Glucose 139H 01/24/20 16:01: POC Whole Blood Glucose 142H 01/24/20 21:02: POC Whole Blood Glucose 116H 01/25/20 05:20: White Blood Count [Pending], Red Blood Count [Pending], Hemoglobin [Pending], Hematocrit [Pending], Mean Corpuscular Volume [Pending], Mean Corpuscular Hemoglobin [Pending], Mean Corpuscular Hemoglobin Concent [Pending], Red Cell Distribution Width [Pending], Platelet Count [Pending], Mean Platelet Volume [ Pending], Neutrophils (%) (Auto) [Pending], Lymphocytes (%) (Auto) [Pending], Monocytes (%) (Auto) [Pending], Eosinophils (%) (Auto) [Pending], Basophils (%) (Auto) [Pending], Sodium Level [Pending], Potassium Level [Pending], Chloride Level [Pending], Carbon Dioxide Level [Pending], Blood Urea Nitrogen [Pending], Creatinine [Pending], Estimat Glomerular Filtration Rate [Pending], Glucose Level [Pending], Calcium Level [Pending] 01/25/20 05:39: POC Whole Blood Glucose 121H Height (Feet): 5 Height (Inches): 1.00 Weight (Pounds): 131 General Appearance: no apparent distress Neck: normal alignment Cardiovascular: normal rate Abdomen: normal bowel sounds Objective Current Medications Medications (Trade) Dose Ordered Sig/Farhad Route PRN Reason Start Time Stop Time Status Last Admin Dose Admin Acetaminophen (Tylenol) 650 mg Q4H PRN ORAL Fever 01/23/20 20:08 02/22/20 20:07 01/24/20 03:05 Acetaminophen (Tylenol) 650 mg Q4H PRN ORAL Mild Pain (Pain Scale 1-3) 01/24/20 12:00 02/23/20 11:59 01/25/20 05:19 Allopurinol (allopurinoL) 300 mg DAILY ORAL 01/24/20 10:15 02/23/20 10:14 01/24/20 12:39 Amlodipine Besylate (Norvasc) 5 mg DAILY ORAL 01/26/20 09:00 02/25/20 08:59 Apixaban (Eliquis) 5 mg BID ORAL 01/24/20 09:00 04/19/20 20:29 01/24/20 16:56 Artificial Tears (Akwa-Tears) 1 drop Q12HR BOTH EYES 01/23/20 21:00 02/19/20 20:59 01/24/20 20:14 Carvedilol (Coreg) 6.25 mg EVERY 12 HOURS ORAL 01/23/20 21:00 02/18/20 20:59 01/24/20 20:14 Dextrose (Dextrose 50%) 25 ml Q30M PRN IV Hypoglycemia 01/23/20 20:15 04/18/20 17:14 Dextrose (Dextrose 50%) 50 ml Q30M PRN IV Hypoglycemia 01/23/20 20:15 04/18/20 17:14 Gabapentin (Neurontin) 100 mg THREE TIMES A DAY ORAL 01/24/20 09:00 02/18/20 17:59 01/24/20 16:56 Insulin Aspart (NovoLOG) BEFORE MEALS AND HS SUBQ 01/23/20 21:00 04/18/20 20:59 01/24/20 16:37 Ondansetron HCl (Zofran) 4 mg Q6H PRN IVP Nausea & Vomiting 01/23/20 20:10 02/22/20 20:09 Polyethylene Glycol (Miralax) 17 gm DAILYPRN PRN ORAL Constipation 01/23/20 20:10 02/22/20 20:09 Sitagliptin Phosphate (Januvia) 50 mg ACBREAKFAST ORAL 01/24/20 06:30 02/19/20 06:59 01/24/20 06:40 Temazepam (Restoril) 15 mg HSPRN PRN ORAL Insomnia 01/23/20 20:10 01/30/20 20:09 01/24/20 21:45 Torsemide (Demadex) 20 mg DAILY ORAL 01/26/20 09:00 02/25/20 08:59 Maurizio Flores MD Jan 25, 2020 06:25
[2020-01-25 06:38] LABS: BASOPHILS % (AUTO) 0.7 % (0.0-2.0); EOSINOPHILS % (AUTO) 3.8 % (0.0-3.0); HEMATOCRIT 31.2 % (37.0-47.0); HEMOGLOBIN 9.7 G/DL (12.0-16.0); MEAN CORPUSCULAR VOLUME 97 FL (80-99); MONOCYTES % (AUTO) 13.5 % (1.0-10.0); PLATELET COUNT 182 K/UL (150-450); RED BLOOD COUNT 3.21 M/UL (4.20-5.40); RED CELL DISTRIBUTION WIDTH 20.5 % (11.6-14.8); WHITE BLOOD COUNT 4.4 K/UL (4.8-10.8)
[2020-01-25 06:52] LABS: ANION GAP 6 mmol/L (5-15); BLOOD UREA NITROGEN 19 mg/dL (7-18); CALCIUM 8.1 MG/DL (8.5-10.1); CARBON DIOXIDE 30 MMOL/L (21-32); CHLORIDE 106 MMOL/L (98-107); CREATININE 1.5 MG/DL (0.55-1.30); POTASSIUM 3.7 MMOL/L (3.5-5.1); SODIUM 142 MMOL/L (136-145)
[2020-01-25] MEDS: sitaGLIPtin 50mg tab ORAL SCH (06:55)
[2020-01-25 08:00] VITALS: BP 123/79
[2020-01-25 08:44] LABS: ALANINE AMINOTRANSFERASE 15 U/L (12-78); ALKALINE PHOSPHATASE 199 U/L (46-116); ASPARTATE AMINO TRANSFERASE 24 U/L (15-37); BILIRUBIN,DIRECT 0.3 MG/DL (0.0-0.3); BILIRUBIN,TOTAL 0.7 MG/DL (0.2-1.0); PHOSPHORUS 4.2 MG/DL (2.5-4.9)
[2020-01-25] MEDS: Carvedilol 6.25mg Tab ORAL SCH (08:53)
[2020-01-25] MEDS: Eliquis 5mg tablet ORAL SCH (08:53)
[2020-01-25 12:00] VITALS: BP 98/68
--- NOTE | 2020-01-25 12:11 | Internal Med Progress Note ---
Subjective Date of Service: Jan 25, 2020 Physician Name Rafael Boykin Attending Physician Misael Dubon MD Current Medications Medications (Trade) Dose Ordered Sig/Farhad Route PRN Reason Start Time Stop Time Status Last Admin Dose Admin Acetaminophen (Tylenol) 650 mg Q4H PRN ORAL Fever 01/23/20 20:08 02/22/20 20:07 01/25/20 10:42 Acetaminophen (Tylenol) 650 mg Q4H PRN ORAL Mild Pain (Pain Scale 1-3) 01/24/20 12:00 02/23/20 11:59 01/25/20 05:19 Allopurinol (allopurinoL) 300 mg DAILY ORAL 01/24/20 10:15 02/23/20 10:14 01/25/20 08:53 Amlodipine Besylate (Norvasc) 5 mg DAILY ORAL 01/26/20 09:00 02/25/20 08:59 Apixaban (Eliquis) 5 mg BID ORAL 01/24/20 09:00 04/19/20 20:29 01/25/20 08:53 Artificial Tears (Akwa-Tears) 1 drop Q12HR BOTH EYES 01/23/20 21:00 02/19/20 20:59 01/25/20 08:54 Carvedilol (Coreg) 6.25 mg EVERY 12 HOURS ORAL 01/23/20 21:00 02/18/20 20:59 01/25/20 08:53 Dextrose (Dextrose 50%) 25 ml Q30M PRN IV Hypoglycemia 01/23/20 20:15 04/18/20 17:14 Dextrose (Dextrose 50%) 50 ml Q30M PRN IV Hypoglycemia 01/23/20 20:15 04/18/20 17:14 Gabapentin (Neurontin) 100 mg THREE TIMES A DAY ORAL 01/24/20 09:00 02/18/20 17:59 01/25/20 08:53 Insulin Aspart (NovoLOG) BEFORE MEALS AND HS SUBQ 01/23/20 21:00 04/18/20 20:59 01/25/20 11:28 Ondansetron HCl (Zofran) 4 mg Q6H PRN IVP Nausea & Vomiting 01/23/20 20:10 02/22/20 20:09 Polyethylene Glycol (Miralax) 17 gm DAILYPRN PRN ORAL Constipation 01/23/20 20:10 02/22/20 20:09 Sitagliptin Phosphate (Januvia) 50 mg ACBREAKFAST ORAL 01/24/20 06:30 02/19/20 06:59 01/25/20 06:55 Temazepam (Restoril) 15 mg HSPRN PRN ORAL Insomnia 01/23/20 20:10 01/30/20 20:09 01/24/20 21:45 Torsemide (Demadex) 20 mg DAILY ORAL 01/26/20 09:00 02/25/20 08:59 Allergies: Coded Allergies: No Known Allergies (Unverified , 12/19/14) patient states no known drug allergy ROS Limited/Unobtainable: No Constitutional: Reports: no symptoms HEENT: Reports: no symptoms Respiratory: Reports: no symptoms Gastrointestinal/Abdominal: Reports: no symptoms Genitourinary: Reports: no symptoms Neurologic/Psychiatric: Reports: no symptoms Subjective 84 YO F with history of multiple myeloma, currently undergoing chemotherapy, admitted with shortness of breath. Now atrial fibrillation. Cover for Int Med- Dr Dubon Objective Last Vital Signs Date Time Temp Pulse Resp B/P (MAP) Pulse Ox O2 Delivery O2 Flow Rate FiO2 01/25/20 12:00 98.2 58 16 98/68 (78) 98 01/25/20 09:00 Room Air 01/24/20 18:56 21 01/19/20 17:24 2.0 Laboratory Tests Test 01/24/20 16:01 01/24/20 21:02 01/25/20 05:20 01/25/20 05:39 POC Whole Blood Glucose 142 MG/DL (74-106) H 116 MG/DL (74-106) H 121 MG/DL (74-106) H White Blood Count 4.4 K/UL (4.8-10.8) L Red Blood Count 3.21 M/UL (4.20-5.40) L Hemoglobin 9.7 G/DL (12.0-16.0) L Hematocrit 31.2 % (37.0-47.0) L Mean Corpuscular Volume 97 FL (80-99) Mean Corpuscular Hemoglobin 30.2 PG (27.0-31.0) Mean Corpuscular Hemoglobin Concent 31.0 G/DL (32.0-36.0) L Red Cell Distribution Width 20.5 % (11.6-14.8) H Platelet Count 182 K/UL (150-450) Mean Platelet Volume 6.6 FL (6.5-10.1) Neutrophils (%) (Auto) 65.0 % (45.0-75.0) Lymphocytes (%) (Auto) 17.0 % (20.0-45.0) L Monocytes (%) (Auto) 13.5 % (1.0-10.0) H Eosinophils (%) (Auto) 3.8 % (0.0-3.0) H Basophils (%) (Auto) 0.7 % (0.0-2.0) Sodium Level 142 MMOL/L (136-145) Potassium Level 3.7 MMOL/L (3.5-5.1) Chloride Level 106 MMOL/L (98-107) Carbon Dioxide Level 30 MMOL/L (21-32) Anion Gap 6 mmol/L (5-15) Blood Urea Nitrogen 19 mg/dL (7-18) H Creatinine 1.5 MG/DL (0.55-1.30) H Estimat Glomerular Filtration Rate 40.0 mL/min (>60) Glucose Level 120 MG/DL (74-106) H Calcium Level 8.1 MG/DL (8.5-10.1) L Phosphorus Level 4.2 MG/DL (2.5-4.9) Magnesium Level 1.8 MG/DL (1.8-2.4) Total Bilirubin 0.7 MG/DL (0.2-1.0) Direct Bilirubin 0.3 MG/DL (0.0-0.3) Aspartate Amino Transf (AST/SGOT) 24 U/L (15-37) Alanine Aminotransferase (ALT/SGPT) 15 U/L (12-78) Alkaline Phosphatase 199 U/L (46-116) H Total Protein 6.2 G/DL (6.4-8.2) L Albumin 3.0 G/DL (3.4-5.0) L Test 01/25/20 11:23 POC Whole Blood Glucose 156 MG/DL (74-106) H Microbiology Date/Time Source Procedure Growth Status 01/23/20 16:10 Urine,Clean Catch Urine Culture - Preliminary Resulted Intake and Output 01/24/20 01/25/20 19:00 07:00 Intake Total 300 ml 120 ml Balance 300 ml 120 ml Intake Oral 300 ml 120 ml # Voids 5 4 # Bowel Movements 1 Objective PHYSICAL EXAMINATION: GENERAL: The patient is a well-developed and well-nourished Hungarian-speaking female, in no apparent distress. HEENT: Eyes, pupils are equal and responsive to light and accommodation. Extraocular movements are intact. NECK: Supple without lymphadenopathy. CHEST: Lungs are clear to auscultation bilaterally without wheezes or rales. CARDIOVASCULAR: Regular rhythm and rate. S1, S2 normal without murmurs, rubs, or gallops. ABDOMEN: Soft, nontender, and nondistended. Positive bowel sounds. No evidence of hepatosplenomegaly. Currently, no rebound or guarding noted. EXTREMITIES: Negative for clubbing, cyanosis, or edema. RECTAL/GENITAL: Not performed. NEUROLOGIC: Cranial nerves II through XII are grossly intact without focal deficits. Motor strength is 5/5 bilaterally. Deep tendon reflexes are 2+ plantar. Assessment/Plan Assessment/Plan Assessment/Plan Assessment/Plan Assessment/Plan ASSESSMENT: This is an 84-year-old female with: 1. Shortness of breath. 2. persistent Atrial fibrillation. 3. Diabetes type 2. 4. Hypertension. 5. multiple myeloma. 6. Liver cirrhosis. 7. Congestive heart failure. 8. History of fall with pelvic fracture status post of ORIF TREATMENT: 1. Atrial fibrillation. A Cardiology consultation has been obtained with Dr. Chauncey Lynne. We will follow recommendations of Cardiology. The patient is currently on Eliquis. 2. Diabetes type 2. Endocrinology=Dr Flores Continue NovoLog sliding scale and januvia 3. Hypertension. Continue Coreg as above. Continue benazepril and diltiazem as above. 4. multiple myeloma under chemotherapy by Dr. Colvin 5. Congestive heart failure. As above, a Cardiology consultation has been obtained with Dr. Chauncey Lynne. 6. History of liver cirrhosis. 7. PT mobility 8. CODE STATUS: Full code 9. DVT prophylaxis: Eliquis 10. Discharge planning Rafael Boykin MD Jan 25, 2020 12:11
[2020-01-25] MEDS ORDERED: NOVOLOG100 UNITS1 SUBQ (12:29)
[2020-01-25] MEDS ORDERED: TORSEMIDE10 MG ORAL (12:29)
[2020-01-25] MEDS ORDERED: JANUVIA50 MG ORAL (12:29)
[2020-01-25] MEDS ORDERED: COREG6.25 MG ORAL (12:29)
[2020-01-25] MEDS ORDERED: NORVASC5 MG ORAL (12:29)
[2020-01-25] MEDS ORDERED: ALLOPURINOL100 M1 ORAL (12:29)
--- NOTE | 2020-01-25 12:36 | Nephrology Progress Note ---
Assessment/Plan Problem List: (1) ATN (acute tubular necrosis) (2) Atrial fibrillation (3) HTN (hypertension) (4) DM (diabetes mellitus) (5) Acute respiratory failure (6) Chemotherapy adverse reaction Assessment: MM (7) CHF (congestive heart failure) Assessment: TR Assessment Acute respiratory failure post chemotherapy for multiple myeloma Acute tubular necrosis Atrial fibrillation Congestive heart failure and tricuspid regurgitation Diabetes mellitus Hypertension History of multiple falls and pelvic with fractures Plan Serum creatinine 1.5 stable. Stable for discharge from renal standpoint of view. Add allopurinol Adjust blood pressure medication with proper parameters Monitor renal parameters Check urine analysis and urine for spot sodium Anemia work-up To blood pressure and blood sugar and check Avoid nephrotoxic's Per orders Subjective ROS Limited/Unobtainable: No Constitutional: Reports: malaise Objective Objective Last 24 Hour Vital Signs Date Time Temp Pulse Resp B/P (MAP) Pulse Ox O2 Delivery O2 Flow Rate FiO2 01/25/20 12:00 98.2 58 16 98/68 (78) 98 01/25/20 09:00 Room Air 01/25/20 08:53 69 123/79 01/25/20 08:00 97.6 69 18 123/79 (94) 98 01/25/20 05:40 97.9 76 163/75 (104) 01/25/20 00:00 98.0 77 20 116/85 (95) 99 01/24/20 22:00 77 123/68 (86) 01/24/20 21:00 Room Air 01/24/20 20:14 67 174/62 01/24/20 20:00 98.0 67 20 174/62 (99) 97 01/24/20 18:56 72 18 99 Room Air 21 01/24/20 17:51 82 159/57 (91) 01/24/20 16:32 64 180/77 01/24/20 16:00 98.0 64 20 180/77 (111) 97 Intake and Output 01/24/20 01/25/20 19:00 07:00 Intake Total 300 ml 120 ml Balance 300 ml 120 ml Intake Oral 300 ml 120 ml # Voids 5 4 # Bowel Movements 1 Laboratory Tests 01/24/20 16:01: POC Whole Blood Glucose 142H 01/24/20 21:02: POC Whole Blood Glucose 116H 01/25/20 05:20: White Blood Count 4.4L, Red Blood Count 3.21L, Hemoglobin 9.7L, Hematocrit 31.2L , Mean Corpuscular Volume 97, Mean Corpuscular Hemoglobin 30.2, Mean Corpuscular Hemoglobin Concent 31.0L, Red Cell Distribution Width 20.5H, Platelet Count 182, Mean Platelet Volume 6.6, Neutrophils (%) (Auto) 65.0, Lymphocytes (%) (Auto) 17.0L, Monocytes (%) (Auto) 13.5H, Eosinophils (%) (Auto ) 3.8H, Basophils (%) (Auto) 0.7, Sodium Level 142, Potassium Level 3.7, Chloride Level 106, Carbon Dioxide Level 30, Anion Gap 6, Blood Urea Nitrogen 19H, Creatinine 1.5H, Estimat Glomerular Filtration Rate 40.0, Glucose Level 120H, Calcium Level 8.1L, Phosphorus Level 4.2, Magnesium Level 1.8, Total Bilirubin 0.7, Direct Bilirubin 0.3, Aspartate Amino Transf (AST/SGOT) 24, Alanine Aminotransferase (ALT/SGPT) 15, Alkaline Phosphatase 199H, Total Protein 6.2L, Albumin 3.0L 01/25/20 05:39: POC Whole Blood Glucose 121H 01/25/20 11:23: POC Whole Blood Glucose 156H Height (Feet): 5 Height (Inches): 1.00 Weight (Pounds): 131 General Appearance: no apparent distress Objective No change Ramez Wray MD Jan 25, 2020 12:36
[2020-01-26] MEDS ORDERED: Torsemide 10mg tab ORAL SCH (09:00)
--- NOTE | 2020-01-26 15:22 | Discharge Summary ---
Discharge Summary Discharge Summary _ DATE OF ADMISSION: 01/19/2020 DATE OF DISCHARGE: 01/25/2020 DISCHARGED BY: Dr. Dubon REASON FOR ADMISSION: 84 years old female with past medical history of diabetes mellitus, hypertension , atrial fibrillation, multiply myeloma, history of peripheral arterial embolism , CHF, history of epidural hematoma, presented to emergency department with acute shortness of breath after receiving chemotherapy earlier. She felt constant chest tightness. No fever or chills. Upon evaluation blood pressure was significantly elevated 189/83 , patient was tachypneic , and mildly hypoxic. Laboratory work-up revealed leukocytosis , hemoglobin 10.5 hematocrit 32.4. Stable electrolytes. BUN 22, creatinine 1.2. Glucose 201. Lactic acid 1.2. AST 43 ALT 25. Troponin 0.107, pro BNP 98447. EKG revealed atrial fibrillation with controlled ventricular response. Albumin 3.4. Rapid COVID-19 was negative. Chest x-ray revealed cardiomegaly with interstitial edema. CT angiogram of the chest revealed no evidence of central or subsegmental pulmonary embolism. Moderate to severe cardiomegaly with evidence of right heart dysfunction. L1 compression fracture. Small right pleural effusion with associated atelectasis. Patient subsequently admitted for NSTEMI probably demand ischemia dyspnea CONSULTANTS: wood shingle roofer Dr. Lynne pulmonary Dr. Matias can filling machine operator Dr. Flores tobacco sample puller Dr. Wray HOSPITAL COURSE: Patient initially admitted to monitored floor. Echocardiogram demonstrated preserved ejection fraction of 55%. No evidence of wall motion abnormality. No evidence of left ventricular hypertrophy. Right ventricular systolic pressure of 71 consistent with severe pulmonary hypertension. Elevated left atrial pressure suggested of restrictive pattern, grade 3. Severe tricuspid and mitral regurgitation. Serial troponin trending down. Diuresis provided with close monitoring of volumes and cardiorenal parameters as per wood shingle roofer recommendation. Heart rate was controlled with beta-jhon. Anticoagulation with Eliquis continued. Troponin without peak or brittnee, likely demand ischemia . Tile Layer Supervisor recommended to consider outpatient ischemia evaluation in future. Blood pressure was managed with beta-jhon. Hydralazine was on board as needed for blood pressure spikes. Patient was followed-up with chest x-ray and pro BNP. Supplemental oxygen provided and titrated to keep pulse oximetry above 92% . Pulmonary toilet provided. VQ scan revealed intermediate probability for pulmonary embolism. Patient was on Eliquis as mentioned above. Blood cultures were negative. Urine culture revealed Staph epidermidis . Prior to discharge pulse oximetry stable on room air. Blood sugar was managed as per can filling machine operator recommendation Patient was on Januvia and sliding scale of insulin was on board as needed. No need for insulin after discharge. Diabetic diet and diabetic teaching provided. Renal parameters and electrolytes were closely monitored. Electrolytes corrected as needed. Basket Patcher recommended to avoid nephrotoxic if possible . Urine studies were done. Allopurinol added . Pain management was addressed as needed. Fall precaution maintained. Patient was working with physical therapist. Supportive care provided. Patient clinically stabilized and was ready for discharge home with home health services. FINAL DIAGNOSES: Acute respiratory failure post chemotherapy Acute tubular necrosis Permanent atrial fibrillation Moderate to severe mitral regurgitation and tricuspid regurgitation Congestive heart failure , diastolic Recent diagnosis of multiply myeloma , currently on chemotherapy History of peripheral arterial embolism History of epidural hematoma Diabetes mellitus UTI Hypertension History of multiply falls with pelvic fracture DISCHARGE MEDICATIONS: See Medication Reconciliation list. DISCHARGE INSTRUCTIONS: Patient was discharged home with home health services. Follow up with primary care provider in one week. I have been assigned to dictate discharge summary for this account. I was not involved in the patient's management. Nikki Ruvalcaba NP Jan 26, 2020 15:22
== END 2020-01-25 14:45 | disposition home health service (06) | DRG 189 ==
LOC: EDBD 14:25 → EMR 14:53 → 2E 15:20 → EDBEDREQ 16:21 → 3E 01-23 20:37
DX: J96.00 Acute respiratory failure, unspecified whether with hypoxia or hypercapnia (principal); N17.0 Acute kidney failure with tubular necrosis; I48.21 Permanent atrial fibrillation; C90.00 Multiple myeloma not having achieved remission; N39.0 Urinary tract infection, site not specified; T45.1X5A Adverse effect of antineoplastic and immunosuppressive drugs, initial encounter; I11.0 Hypertensive heart disease with heart failure; I50.9 Heart failure, unspecified; I27.20 Pulmonary hypertension, unspecified; I36.1 Nonrheumatic tricuspid (valve) insufficiency; E11.9 Type 2 diabetes mellitus without complications; K74.60 Unspecified cirrhosis of liver; Z85.79 Personal history of other malignant neoplasms of lymphoid, hematopoietic and related tissues; Z79.01 Long term (current) use of anticoagulants; Z79.4 Long term (current) use of insulin; I34.0 Nonrheumatic mitral (valve) insufficiency; Z86.711 Personal history of pulmonary embolism; R29.6 Repeated falls
CPT/HCPCS: 36415; 36600; 71045; 71275; 76770; 78579; 78580; 80048; 80053; 80061; 80076; 81001; 82043; 82550; 82607; 82728; 82746; 82803; 82962; 82977; 83540; 83550; 83605; 83735; 83880; 84100; 84300; 84443; 84484; 84550; 85007; 85025; 85610; 85651; 85730; 86140; 86850; 86900; 86901; 87040; 87086; 87181; 89050; 93005; 93306; 94664; 99285; A9503; J1815; J8499; U0002